=== PATIENT | female | born 1960 | race Caucasian/White ===

== ENCOUNTER → 2016-09-05 | Outpatient (CLI) | payer MEDICARE ==
[~2016-09-05] MED LIST: /GLIP10TAB PO; JANU50TA8 PO; LACT10SO PO; LASI40TA PO; PROP20TA5 PO; SPIR25TA2 PO
--- NOTE | 2016-09-05 10:56 | REPMRS ---
Patient History The patient states she had a clinical breast exam in 09/2016. Patient has history of other cancer and is nulliparous. Family history of colorectal cancer in father at age 50 or over, prostate cancer in father, breast cancer in mother under age 50, and colorectal cancer in paternal uncle under age 50. Digital Woman Screen Mammo: September 05, 2016 - Exam #: [id number] Bilateral CC and MLO view(s) were taken. Technologist: Parvin Edmonds, Technologist Prior study comparison: August 26, 2015, digital woman screen mammo performed at [facility]. August 26, 2014, digital woman screen mammo performed at [facility]. August 21, 2013, digital woman screen mammo performed at [facility]. FINDINGS: There are scattered fibroglandular densities. There has been no change in the appearance of the mammogram from the prior studies. There is a mild amount of scattered fibroglandular density which is fairly symmetric. There is no interval development of dominant mass, architectural distortion, or clustered microcalcification suggestive of malignancy. ASSESSMENT: BI-RADS/ACR category 1 mammogram. Negative. Recommendation Routine screening mammogram in 1 year (for women over age 40). This mammogram was interpreted with the aid of an FDA-approved computer-aided dectection system. Electronically Signed By: Jack Curtis MD 09/05/16 [id number]
== END ==
LOC: M WHC 09:22
PROVIDERS: ATTEND Nurse Practitioner Women's Health
DX: Z12.31 Encounter for screening mammogram for malignant neoplasm of breast (principal); Z12.11 Encounter for screening for malignant neoplasm of colon; Z92.89 Personal history of other medical treatment; Z80.0 Family history of malignant neoplasm of digestive organs; Z12.4 Encounter for screening for malignant neoplasm of cervix; B37.3 Candidiasis of vulva and vagina
CPT/HCPCS: 82270; G0101; G0202

== ENCOUNTER → 2016-09-05 | Outpatient (REF) | payer MEDICARE | LOC: M SFHCWAGY 09:45 | PROVIDERS: ATTEND Nurse Practitioner Women's Health | DX: Z12.4 Encounter for screening for malignant neoplasm of cervix (principal); B37.3 Candidiasis of vulva and vagina ==

== ENCOUNTER → 2016-09-25 | Outpatient (CLI) | payer MEDICARE ==
--- NOTE | 2016-09-25 10:52 | REP ---
GASTRIC EMPTYING STUDY: 09/25/2016 CLINICAL HISTORY: Postprandial upper abdominal pain. Dyspnea, reflux, weight gain, and bloating. TECHNIQUE: 1.05 mCi technetium 99m sulfur colloid in two scrambled eggs with 6 ounces of water orally. Anterior and posterior images at 2-minute intervals for 90 minutes were obtained. Region of interest drawn around the stomach with gastric emptying curve drawn by a semiautomated method. FINDINGS: The static images demonstrate no evidence of reflux on any of the images from the 90-minute period of observation. The gastric emptying is 90%. The t1/2 of gastric emptying 52 minutes. Normal t1/2 is 90 minutes or less. IMPRESSION: Normal gastric emptying study. There is no gastroparesis. No reflux observed. Signed by Andrade Caballero MD 09/25/2016 05:41 P
== END ==
LOC: M RAD 07:56
PROVIDERS: ATTEND Internal Medicine Gastroenterology
DX: R10.9 Unspecified abdominal pain (principal); R68.81 Early satiety
CPT/HCPCS: 78264; A9541

== ENCOUNTER → 2017-04-11 | Outpatient (CLI) | payer MEDICARE ==
--- NOTE | 2017-04-11 08:23 | REP ---
RIGHT UPPER QUADRANT SONOGRAPHY: HISTORY: Cirrhosis. COMPARISON STUDY: June 01, 2016. Comparison CT study December 03, 2016. SONOGRAPHIC FINDINGS: Exam quality is inhibited significantly due to patient body habitus and sonographic echogenicity pattern of the liver. This finding suggests fatty infiltration. The liver is very poorly seen. There is a 1 cm hyperechoic area in the left lobe anteriorly which could be a small hemangioma. The gallbladder is surgically absent. Common bile duct is normal post cholecystectomy measuring 0.7 cm. The pancreas is obscured by abdominal gas. The right kidney is less than completely seen. No evidence of hydronephrosis. IMPRESSION: Substantially inhibited exam quality. Question 1 cm hemangioma of the left lobe of the liver. Poor visualization. Post cholecystectomy. Signed by Javier Curtis MD 04/11/2017 08:26 A
== END ==
LOC: M RAD 06:57
PROVIDERS: ATTEND Internal Medicine Gastroenterology
DX: K74.0 Hepatic fibrosis (principal); I85.00 Esophageal varices without bleeding; K75.81 Nonalcoholic steatohepatitis (NASH); R19.7 Diarrhea, unspecified; E66.9 Obesity, unspecified; R16.1 Splenomegaly, not elsewhere classified

== ENCOUNTER 2017-07-09 11:57 | Emergency (ER) | payer MEDICARE ==
[~2017-07-09] VITALS: Ht 152.4 cm; Wt 106.8 kg
[2017-07-09 11:58] VITALS: BP 155/70
[2017-07-09] MEDS ORDERED: SUCR1SS PO (13:58)
[2017-07-09] MEDS ORDERED: PROT1TAB2 PO (13:58)
[2017-07-09] MEDS ORDERED: ZOFR4TAB3 PO (13:58)
[2017-07-09] MEDS ORDERED: ONDANSETRON 4 MG ORAL DISINTEGRATING TAB (S0181) PO ONE (14:00)
[2017-07-09] MEDS ORDERED: PANTOPRAZOLE 40MG INJ (PROTONIX) (C9113) IV ONE (14:00)
[2017-07-09] MEDS ORDERED: SUCRALFATE SUSP 1GM/10ML UD PO ONE (14:00)
== END 2017-07-09 14:05 | disposition home or self-care (01) ==
LOC: M ED 11:57
DX: K29.00 Acute gastritis without bleeding (principal); I73.9 Peripheral vascular disease, unspecified; E11.9 Type 2 diabetes mellitus without complications; K21.9 Gastro-esophageal reflux disease without esophagitis; K76.0 Fatty (change of) liver, not elsewhere classified; Z87.442 Personal history of urinary calculi; Z79.899 Other long term (current) drug therapy; Z79.84 Long term (current) use of oral hypoglycemic drugs; Z91.040 Latex allergy status

== ENCOUNTER → 2018-03-04 | Outpatient (REF) | payer MEDICARE ==
[2018-03-04 15:49] LABS: LUTEINIZING HORMONE 10.6 mIU/mL
[2018-03-04 15:50] LABS: FOLLICLE STIMULATING HORMONE 17.3 mIU/mL
== END ==
LOC: M SFHCWAGY 13:11
DX: N92.6 Irregular menstruation, unspecified (principal); Z01.419 Encounter for gynecological examination (general) (routine) without abnormal findings (principal)
CPT/HCPCS: 83001

== ENCOUNTER → 2018-03-04 | Outpatient (CLI) | payer MEDICARE, OTHER | LOC: M WHC 12:56 | DX: Z01.419 Encounter for gynecological examination (general) (routine) without abnormal findings (principal); Z12.31 Encounter for screening mammogram for malignant neoplasm of breast; Z80.3 Family history of malignant neoplasm of breast; Z80.0 Family history of malignant neoplasm of digestive organs; N92.6 Irregular menstruation, unspecified | CPT/HCPCS: 77067; 83001 ==

== ENCOUNTER → 2018-05-23 | Outpatient (REF) | payer MEDICARE ==
[2018-05-23 17:45] LABS: CHLAMYDIA DNA AMPLIFICATION NEGATIVE (NEGATIVE); GC DNA AMPLIFICATION NEGATIVE (NEGATIVE)
== END ==
LOC: M SFHCWAGY 15:45
DX: B37.3 Candidiasis of vulva and vagina (principal); N90.5 Atrophy of vulva; N89.8 Other specified noninflammatory disorders of vagina; Z11.3 Encounter for screening for infections with a predominantly sexual mode of transmission
CPT/HCPCS: 87186

== ENCOUNTER → 2018-10-23 | Outpatient (REF) | payer MEDICARE ==
[~2018-10-23] MED LIST changes: +PROT1TAB2 PO; +SUCR1SS PO; +ZOFR4TAB14 PO
[2018-10-23 15:42] LABS: CHLAMYDIA DNA AMPLIFICATION NEGATIVE (NEGATIVE); GC DNA AMPLIFICATION NEGATIVE (NEGATIVE)
== END ==
LOC: M LAB REF 13:56
PROVIDERS: ATTEND Nurse Practitioner Family
DX: Z11.3 Encounter for screening for infections with a predominantly sexual mode of transmission (principal); N39.46 Mixed incontinence
CPT/HCPCS: 81002; 87088; 87186; 87210; 87491; 87591; G0463

== ENCOUNTER → 2018-11-13 | Outpatient (CLI) | payer MEDICARE ==
--- NOTE | 2018-11-13 11:11 | REP ---
Pelvic ultrasound including transabdominal, endovaginal and Doppler ultrasound assessment for postmenopausal bleeding: The bladder is adequately distended. The uterus is anteverted and normal size measuring 7.8 x 3.0 x 4.2 cm. Nabothian cysts are incidentally identified in the cervix. The endometrium measures 3.1 - 6.2 mm and is slightly thickened for a post proposal female. The right ovary measures 2.6 x 1.6 x 2.3 cm. Left ovary measures 2.5 x 1.3 x 1.6 cm. There are no dominant ovarian masses or cysts. There is no free fluid in the pelvis. Impression: Slightly thickened endometrium. Otherwise, negative pelvic ultrasound. Electronically Signed by Nicholas Escalona MD 11/13/2018 11:03 A
== END ==
LOC: M WHC 09:11
PROVIDERS: ATTEND Nurse Practitioner Family
DX: N85.00 Endometrial hyperplasia, unspecified (principal)

== ENCOUNTER → 2019-02-16 | Outpatient (REF) | payer MEDICARE ==
[~2019-02-16] MED LIST changes: +ALDA50TA2 PO; +B-122500 PO; +CHOL100029 PO; +CYCL5TAB PO; +FERR1TAB8 PO; +FURO40TA2 PO; +GLIP5TAB20 PO; +IBUP-1022 PO; +JANU50TA25 PO; +LACT10SO29 PO; +MAGN400C PO; +MEDR10TA PO; +OMEP-221 PO; +PANT40TA3 PO; +PROP10TA56 PO; +SM HTAB3 PO; +SPIR100T3 PO; +TRUL10IN SC; +VITA100066 PO; +VITACAP8 PO
== END ==
LOC: M LAB REF 19:19
PROVIDERS: ATTEND Specialist
DX: N95.0 Postmenopausal bleeding (principal)

== ENCOUNTER 2019-03-26 05:56 | Day surgery (SDC) | payer MEDICARE ==
[~2019-03-26] VITALS: Ht 152.4 cm; Wt 107.5 kg
[~2019-03-26 05:56] MED LIST changes: -ALDA50TA2 PO; -B-122500 PO; -CYCL5TAB PO; -IBUP-1022 PO; -MEDR10TA PO; -SM HTAB3 PO; -VITA100066 PO
[2019-03-26] MEDS ORDERED: LR 1,000 ML IV ONE (06:00)
[2019-03-26 06:34] LABS: HEMATOCRIT 37.3 % (36.0-47.0); HEMOGLOBIN 12.6 g/dl (12.0-15.5); MEAN CORPUSCULAR HGB CONC 33.8 g/dl (32.0-36.5); MEAN CORPUSCULAR VOLUME 85.9 fl (80.0-96.0); PLATELET COUNT, AUTOMATED 54 10^3/uL (150-450); RED BLOOD COUNT 4.34 10^6/uL (4.00-5.40); WHITE BLOOD COUNT 4.2 10^3/uL (4.0-10.0)
[2019-03-26] MEDS ORDERED: HumaLOG INSULIN (NovoLOG) PER UNIT SC ONE (07:30)
[2019-03-26] MEDS ORDERED: HumaLOG INSULIN (NovoLOG) PER UNIT As Ordered ONE (07:30)
[2019-03-26] MEDS ORDERED: LIDOCAINE 2% INJ 100 MG/5 ML SDV (FOR ANES.) As Ordered ONE (11:00)
[2019-03-26] MEDS ORDERED: propofoL 200 MG/20 ML VIAL As Ordered ONE (11:00)
[2019-03-26] MEDS ORDERED: dexameTHASONE 4 MG/ML 1ML VIAL (J1100) As Ordered ONE (11:00)
[2019-03-26] MEDS ORDERED: ONDANSETRON 4MG/2ML VIAL (J2405) As Ordered ONE (11:00)
[2019-03-26] MEDS ORDERED: fentaNYL 100 MCG/2 ML INJECTION (J3010) As Ordered ONE (11:39)
[2019-03-26] MEDS ORDERED: MIDAZOLAM INJ 2 MG/2 ML VIAL (J2250) As Ordered ONE (11:39)
[2019-03-26] MEDS ORDERED: KETOROLAC 60 MG/2 ML VIAL (J1885) As Ordered ONE (12:39)
[2019-03-26] MEDS ORDERED: ONDANSETRON 4MG/2ML VIAL (J2405) IV PRN (13:15)
[2019-03-26] MEDS ORDERED: ACETAMINOPHEN 500 MG TAB PO ONE (13:15)
[2019-03-26] MEDS ORDERED: fentaNYL 100 MCG/2 ML INJECTION (J3010) IV PRN (13:15)
[2019-03-26] MEDS ORDERED: PERCOCET 5MG/325MG TAB PO PRN (13:15)
[2019-03-26] MEDS ORDERED: LR 1,000 ML IV SCH ×2 (13:15)
[2019-03-26 14:45] VITALS: BP 168/79
--- NOTE | 2019-03-28 15:28 | RO ---
DATE OF PROCEDURE: 03/26/2019 PREPROCEDURE DIAGNOSIS: Postmenopausal bleeding. POSTPROCEDURE DIAGNOSIS: Postmenopausal bleeding. PROCEDURE: Hysteroscopy, dilation and curettage, polypectomy. SURGEON: Denny Sampson MD VISUAL ARTS TEACHER: ANESTHESIA: General endotracheal. ESTIMATED BLOOD LOSS: 10 mL. URINE OUTPUT: 150 mL. FINDINGS: Moderate size endometrial polyp - the anterior lower uterine segment, otherwise normal endometrial cavity with normal tubal ostia. Uterus sounded to 8 cm and anteverted. DESCRIPTION OF PROCEDURE: The patient was taken to the operating room where general endotracheal anesthesia was induced. She was prepped and draped in a sterile fashion in the dorsal lithotomy position. The bladder was emptied with a catheter. A speculum was placed in the vagina. The anterior lip of the cervix was grasped with a tenaculum. The cervix was dilated with tapered dilators. Diagnostic hysteroscope using normal saline as a distention medium was placed through the internal os. Visualization of the endometrial cavity revealed the findings noted above. Hysteroscopic grasping instruments were placed through the operative port of the hysteroscope, and the polyp was grasped under direct visualization, removing it in its entirety. The hysteroscope was removed. Sharp curettage performed and a dilation and curettage specimen was sent for pathology. All instruments were removed. Sponge, instrument and needle counts were correct.
[2019-04-28] MEDS ORDERED: MEDR10TA PO (16:02)
[2019-05-14] MEDS ORDERED: B-122500 PO (16:54)
[2019-06-15] MEDS ORDERED: JANU50TA8 PO (11:03)
== END 2019-03-26 14:55 | disposition home or self-care (01) ==
LOC: M SDC 05:56
PROVIDERS: ATTEND Specialist
DX: N85.01 Benign endometrial hyperplasia (principal); I10 Essential (primary) hypertension; E10.9 Type 1 diabetes mellitus without complications; Z79.4 Long term (current) use of insulin; K58.8 Other irritable bowel syndrome; Z79.899 Other long term (current) drug therapy; K21.9 Gastro-esophageal reflux disease without esophagitis; Z91.040 Latex allergy status; Z79.84 Long term (current) use of oral hypoglycemic drugs; F41.9 Anxiety disorder, unspecified
CPT/HCPCS: 36415; 58558; 85027; 85049; 85055; 88305; J1100; J1885; J2250; J2405; J3010

== ENCOUNTER → 2019-04-14 | Outpatient (CLI) | payer MEDICARE ==
--- NOTE | 2019-04-14 13:41 | REPMRS ---
Patient History The patient states she had a clinical breast exam in 04/2019. Patient is postmenopausal, has history of other cancer, and is nulliparous. Family history of breast cancer under age 50 in mother, prostate cancer and colorectal cancer at age 50 or over in father, colorectal cancer at age 47 in paternal uncle. Taking estrogen for 1 year. Taking progesterone. 3D TOMOSYNTHESIS WAS PERFORMED. [facility] lifetime risk for breast cancer is 19.7%. Digital Woman Screen Mammo: April 14, 2019 - Exam #: [id number] Bilateral CC and MLO view(s) were taken. Technologist: Parvin Edmonds, Technologist Prior study comparison: March 04, 2018, bilateral digital woman screen mammo performed at [facility]. September 05, 2016, digital woman screen mammo performed at [facility]. FINDINGS: There are scattered fibroglandular densities. There has been no change in the appearance of the mammogram from the prior studies. There is a mild amount of residual fibroglandular tissue which is fairly symmetric. There is no interval development of dominant mass, architectural distortion, or clustered microcalcification suggestive of malignancy. Assessment: BI-RADS/ACR category 1 mammogram. Negative Mammogram. Recommendation Routine screening mammogram in 1 year (for women over age 40). This mammogram was interpreted with the aid of an FDA-approved computer-aided dectection system. Electronically Signed By: Nicholas Snow MD 04/14/19 [id number]
== END ==
LOC: M WHC 10:31
PROVIDERS: ATTEND Nurse Practitioner Women's Health
DX: Z01.419 Encounter for gynecological examination (general) (routine) without abnormal findings (principal); Z12.31 Encounter for screening mammogram for malignant neoplasm of breast; Z78.0 Asymptomatic menopausal state; Z85.89 Personal history of malignant neoplasm of other organs and systems; Z80.3 Family history of malignant neoplasm of breast; Z80.42 Family history of malignant neoplasm of prostate; Z80.0 Family history of malignant neoplasm of digestive organs; Z92.23 Personal history of estrogen therapy; Z92.29 Personal history of other drug therapy
CPT/HCPCS: 77063; 77067; G0101

== ENCOUNTER 2019-04-28 15:55 | Emergency (ER) | payer MEDICARE ==
[~2019-04-28] VITALS: Ht 152.4 cm; Wt 109.1 kg
[2019-04-28 15:55] VITALS: BP 150/67
[2019-04-28] MEDS ORDERED: MEDR10TA (16:02)
[2019-04-28] MEDS ORDERED: IBUP-1022 PO (17:06)
[2019-04-28 19:15] LABS: BASO % 0.4 % (0.0-1.0); EOS # 0.2 10^3/uL (0.0-0.5); EOS % 3.2 % (0.0-3.0); HEMATOCRIT 41.4 % (36.0-47.0); HEMOGLOBIN 13.5 g/dl (12.0-15.5); LYMPH # 1.1 10^3/uL (1.5-5.0); LYMPH % 22.8 % (24.0-44.0); MEAN CORPUSCULAR HEMOGLOBIN 28.4 pg (27.0-33.0); MEAN CORPUSCULAR HGB CONC 32.6 g/dl (32.0-36.5); MEAN CORPUSCULAR VOLUME 87.2 fl (80.0-96.0); MONO # 0.3 10^3/uL (0.0-0.8); NEUTROPHILS # 3.1 10^3/uL (1.5-8.5); NEUTROPHILS % 66.2 % (36.0-66.0); RED BLOOD COUNT 4.75 10^6/uL (4.00-5.40); WHITE BLOOD COUNT 4.7 10^3/uL (4.0-10.0)
[2019-04-28 19:26] LABS: PLATELET COUNT, AUTOMATED 55 10^3/uL (150-450)
[2019-04-28 19:28] LABS: ALT/SGPT 45 U/L (12-78); BILIRUBIN,DIRECT 0.3 MG/DL (0.0-0.2); BILIRUBIN,TOTAL 0.8 MG/DL (0.2-1.0); BLOOD UREA NITROGEN 14 MG/DL (7-18); CALCIUM LEVEL 9.6 MG/DL (8.5-10.1); CARBON DIOXIDE LEVEL 25 MEQ/L (21-32); CHLORIDE LEVEL 110 MEQ/L (98-107); GLOMERULAR FILTRATION RATE > 60.0 (>51); GLUCOSE, FASTING 168 MG/DL (70-100); LIPASE 135 U/L (73-393); POTASSIUM SERUM 4.5 MEQ/L (3.5-5.1); SODIUM LEVEL 143 MEQ/L (136-145); TOTAL PROTEIN 7.1 GM/DL (6.4-8.2)
--- NOTE | 2019-04-28 20:04 | REPVR ---
PROCEDURE INFORMATION: Exam: CT Abdomen and Pelvis Without Contrast Exam date and time: 04/28/2019 6:54 PM Clinical history: 59 years old, female; Abdominal pain; Flank; Right; Additional info: R/O kidney stone TECHNIQUE: Imaging protocol: Computed tomography of the abdomen and pelvis without contrast. Radiation optimization: All CT scans at this facility use at least one of these dose optimization techniques: automated exposure control; mA and/or kV adjustment per patient size (includes targeted exams where dose is matched to clinical indication); or iterative reconstruction. COMPARISON: CT ABD PELVIS W/O FOL BY WIT 11/24/2014 8:47 AM FINDINGS: Lungs: Clear lung bases. Liver: Some lobulation of the margins of the liver. Gallbladder and bile ducts: Surgical clips at the gallbladder fossa and the patient is post cholecystectomy. Pancreas: Normal sized pancreas. Spleen: Mild splenomegaly. Adrenals: Normal adrenal glands. Kidneys and ureters: Small cyst of the right kidney. There is no evidence of hydronephrosis. Stomach and bowel: There is some dilatation of the proximal jejunum with air-fluid levels which could represent ileus. Appendix: There is no evidence of appendicitis. Intraperitoneal space: There is no evidence of pneumoperitoneum. There is a small to moderate amount of ascites throughout the abdomen and noted along the margins of the liver and spleen. There is some edema through the mesentery. Vasculature: The aorta is normal in size. Lymph nodes: Unremarkable. No enlarged lymph nodes. Bladder: Urinary bladder is empty. Reproductive: Normal size uterus. Normal sized ovaries. Bones/joints: There are large posterior osteophytes L3-L4, L4-L5 and L5-S1 producing severe central spinal canal stenosis at each level. These are bridging osteophytes are also anterior bridging osteophytes. Soft tissues: There is a 4 cm abdominal wall defect below the level of the umbilicus however the hernia is 9 CM. There is protrusion of lobules of mesentery probably omentum. There is extensive edema and some loculations of fluid. Severe edema throughout the anterior abdominal wall with skin thickening and cellulitis identified. Scattered omental fat within the anterior abdominal wall hernia may be ischemic but is contiguous with the sigmoid colon. IMPRESSION: 1. There is a small to moderate amount of ascites in the abdomen including along the liver and spleen. 2. 9 CM anterior abdominal wall hernia with protrusion of lobules of mesenteric fat probably omentum. This could be ischemic since there are loculations of fluid and severe cellulitis and edema of the subcutaneous layer. Infected fluid collections possible. Electronically signed by: Aaron Gayle On 04/28/2019 20:04:16 PM
--- NOTE | 2019-04-28 20:27 | REPVR ---
PROCEDURE INFORMATION: Exam: CT Lumbar Spine Without Contrast Exam date and time: 04/28/2019 6:54 PM Clinical history: 59 years old, female; Other: Right flank pain ? kidney stone; Additional info: R/O kidney stone TECHNIQUE: Imaging protocol: Computed tomography images of the lumbar spine without contrast. Radiation optimization: All CT scans at this facility use at least one of these dose optimization techniques: automated exposure control; mA and/or kV adjustment per patient size (includes targeted exams where dose is matched to clinical indication); or iterative reconstruction. COMPARISON: No relevant prior studies available. FINDINGS: L5-S1: There is large posterior bridging osteophyte causing moderate impression on the anterior left side of the thecal sac and impression on the left S1 nerve root origin. There is also severe bilateral L5 neural foramina narrowing. L4-L5: There is a moderate-sized posterior bridging osteophyte and along with facet hypertrophy causing moderate central spinal canal stenosis. There is severe bilateral L4 neural foramina narrowing. L3-L4: There is a massive/ large bridging posterior disc osteophyte complex causing very severe impression on the thecal sac and with facet hypertrophy causing very severe central spinal canal stenosis. There is posterior osteophyte formation T11 T12 and L1 causing mild impression on the thecal sac. A posterior osteophyte at T8 causing focal impression on the thecal sac. There is no definite evidence of metastasis. IMPRESSION: 1. Very large posterior bridging osteophyte L3-L4 causing severe impression on the thecal sac and very severe central canal stenosis. 2. Moderate posterior osteophyte formation L4-L5 and L5-S1 with severe bilateral neural foramina narrowing. Electronically signed by: Aaron Gayle On 04/28/2019 20:26:49 PM
--- NOTE | 2019-04-28 21:29 | HPEPDOC ---
[facility] Medical History & Physical Date of Admission Apr 28, 2019 Date of Service: Apr 28, 2019 Primary Care Physician: SHARON BONDS MD [facility] Attending Physician: ADITYA CAPELLAN MD History and Physical When I went to see the patient she had abscunded. Vital Signs Vital Signs Date Time Temp Pulse Resp B/P (MAP) Pulse Ox O2 Delivery O2 Flow Rate FiO2 04/28/19 17:09 04/28/19 15:55 97.6 79 20 99 Room Air Laboratory Data Labs 24H Laboratory Tests 2 04/28/19 16:15: Urine Color YELLOW, Urine Appearance CLEAR, Urine pH 5.0, Urine Specific [place] 1.028, Urine Protein NEGATIVE, Urine Glucose (UA) 2+H, Urine Ketones NEGATIVE, Urine Blood NEGATIVE, Urine Nitrite NEGATIVE, Urine Bilirubin NEGATIVE, Urine Urobilinogen 2.0H, Urine Leukocyte Esterase NEGATIVE, Urine WBC (Auto) 2, Urine RBC (Auto) 0, Urine Hyaline Casts (Auto) 0, Urine Bacteria (Auto) NEGATIVE, Urine Squamous Epithelial Cells 1, Urine Mucus (Auto) SMALL, Urine Sperm (Auto) 04/28/19 18:50: Immature Granulocyte % (Auto) 0.4, White Blood Count 4.7, Red Blood Count 4.75, Hemoglobin 13.5, Hematocrit 41.4, Mean Corpuscular Volume 87.2, Mean Corpuscular Hemoglobin 28.4, Mean Corpuscular Hemoglobin Concent 32.6, Red Cell Distribution Width 15.0H, Platelet Count 55L, Neutrophils (%) (Auto) 66.2H, Lymphocytes (%) (Auto) 22.8L, Monocytes (%) (Auto) 7.0H, Eosinophils (%) (Auto) 3.2H, Basophils (%) (Auto) 0.4, Neutrophils # (Auto) 3.1, Lymphocytes # (Auto) 1.1L, Monocytes # (Auto) 0.3, Eosinophils # (Auto) 0.2, Basophils # (Auto) 0.0, Nucleated Red Blood Cells % (auto) 0.0, Immature Platelet Fraction 4.1, Anion Gap 8, Glomerular Filtration Rate > 60.0, Calcium Level 9.6, Aspartate Amino Transf (AST/SGOT) 44H, Alanine Aminotransferase (ALT/SGPT) 45, Alkaline Phosphatase 80, Total Bilirubin 0.8, Direct Bilirubin 0.3H, Total Protein 7.1, Albumin 3.0L, Albumin/Globulin Ratio 0.73L, Lipase 135 CBC/BMP Laboratory Tests 04/28/19 18:50 Red Blood Count 4.75, Mean Corpuscular Volume 87.2, Mean Corpuscular Hemoglobin 28.4, Mean Corpuscular Hemoglobin Concent 32.6, Red Cell Distribution Width 15.0 H, Neutrophils (%) (Auto) 66.2 H, Lymphocytes (%) (Auto) 22.8 L, Monocytes (%) (Auto) 7.0 H, Eosinophils (%) (Auto) 3.2 H, Basophils (%) (Auto) 0.4, Neutrophils # (Auto) 3.1, Lymphocytes # (Auto) 1.1 L, Monocytes # (Auto) 0.3, Eosinophils # (Auto) 0.2, Basophils # (Auto) 0.0 Home Medications Scheduled Dulaglutide (Trulicity) 0.75 Mg/0.5 Ml Pen.injctr, 0.75 MG SC QWEEK saturday Ferrous Sulfate (Ferrous Sulfate) 325 Mg Tablet, 325 MG PO DAILY Furosemide (Furosemide) 40 Mg Tablet, 40 MG PO TID Glipizide (Glipizide ER) 5 Mg Tab.er.24, 10 MG PO BID Lactulose (Lactulose) 10 Gm/15 Ml Solution, Unknown Dose PO DAILY states ran out last week Magnesium Oxide (Magnesium) 400 Mg Capsule, 400 MG PO DAILY Omeprazole (Omeprazole) 40 Mg Capsule.dr, 40 MG PO DAILY Pantoprazole Sodium (Pantoprazole Sodium) 40 Mg Tablet.dr, 40 MG PO DAILY Propranolol HCl (Propranolol HCl) 10 Mg Tablet, 10 MG PO DAILY Sitagliptin Phos/Metformin HCl (Janumet Xr 50-1,000 mg Tablet) 1 Each Tbmp.24hr, 1 TAB PO BID Spironolactone (Spironolactone) 100 Mg Tablet, 100 MG PO DAILY Vitamin B Complex (Vitamin B Complex) 1 Each Capsule, 1 CAP PO DAILY Vitamin D (Vitamin D3) 1,000 Unit Tablet, 1,000 UNITS PO DAILY Scheduled PRN Ibuprofen (Ibuprofen) 600 Mg Tablet, 2 TAB PO for PAIN with food Miscellaneous Medications Medroxyprogesterone Acetate (Medroxyprogesterone Acetate) 10 Mg Tablet Allergies Coded Allergies: latex (Verified Allergy, Mild, itching, 03/26/19) A-FIB/CHADSVASC A-FIB History Current/History of A-Fib/PAF?: No Current PO Anticoag Therapy: No ADITYA CAPELLAN MD Apr 28, 2019 21:29
--- NOTE | 2019-04-29 09:58 | ED PDOC ---
Post-Departure Follow-Up pt left ama - ct ls spine and abd/p faxed to dr iniguez for fu Otilio Hodges MD Apr 29, 2019 09:58
[2019-04-29] MEDS ORDERED: CYCL5TAB PO (16:52)
== END 2019-04-28 22:48 | disposition left against medical advice (07) ==
LOC: M ED 15:55
DX: M54.5 Low back pain (principal); E11.51 Type 2 diabetes mellitus with diabetic peripheral angiopathy without gangrene; I10 Essential (primary) hypertension; K21.9 Gastro-esophageal reflux disease without esophagitis; I73.9 Peripheral vascular disease, unspecified; M19.90 Unspecified osteoarthritis, unspecified site; F41.9 Anxiety disorder, unspecified; Z79.899 Other long term (current) drug therapy; Z79.84 Long term (current) use of oral hypoglycemic drugs; Z91.040 Latex allergy status

== ENCOUNTER 2019-04-29 11:52 | Emergency (ER) | payer MEDICARE ==
[~2019-04-29] VITALS: Ht 152.4 cm; Wt 109.9 kg
[~2019-04-29 11:52] MED LIST changes: +IBUP-1022 PO; +MEDR10TA PO
[2019-04-29 14:52] LABS: BASO % 0.4 % (0.0-1.0); EOS # 0.1 10^3/uL (0.0-0.5); EOS % 2.3 % (0.0-3.0); HEMATOCRIT 41.6 % (36.0-47.0); HEMOGLOBIN 13.7 g/dl (12.0-15.5); LYMPH % 20.2 % (24.0-44.0); MEAN CORPUSCULAR HEMOGLOBIN 28.9 pg (27.0-33.0); MEAN CORPUSCULAR HGB CONC 32.9 g/dl (32.0-36.5); MEAN CORPUSCULAR VOLUME 87.8 fl (80.0-96.0); MONO # 0.4 10^3/uL (0.0-0.8); NEUTROPHILS # 3.6 10^3/uL (1.5-8.5); NEUTROPHILS % 68.9 % (36.0-66.0); RED BLOOD COUNT 4.74 10^6/uL (4.00-5.40); WHITE BLOOD COUNT 5.2 10^3/uL (4.0-10.0)
[2019-04-29 14:55] LABS: PLATELET COUNT, AUTOMATED 58 10^3/uL (150-450)
[2019-04-29 14:57] LABS: ALBUMIN 3.1 GM/DL (3.2-5.2); BILIRUBIN,DIRECT 0.2 MG/DL (0.0-0.2); BILIRUBIN,TOTAL 0.7 MG/DL (0.2-1.0); TOTAL PROTEIN 7.2 GM/DL (6.4-8.2)
[2019-04-29] MEDS ORDERED: ISOVUE-370 76% 100ML VIAL (Q9967) As Ordered ONE (15:12)
--- NOTE | 2019-04-29 16:29 | REP ---
CT of the abdomen and pelvis with IV contrast with attention to the patient's anterior abdominal wall hernia. Comparisons are 04/28/2019 and 11/24/2014. Graph there is an midline anterior abdominal wall hernia just above the umbilicus that have been present since at least 11/24/2014. This is a complex hernia containing at least two separate herniations of omentum and pericolonic fat , one above the other, however there is no bowel within the hernia sac. This is unchanged from 11/24/2014. The peritoneal defect measures 3.2 cm. The hernia sac measures 5.3 cm transversely by 8.7 cm craniocaudad. On 2018. There was significant induration of the subcutaneous fat accompanied by skin thickening surrounding the anterior and inferior margins of the hernia sac as an interval change. There is no focal fluid collection to suggest abscess. This may represent cellulitis. Additionally, there is increased density in the fat of the superior most or herniation along its anterior and inferior margins, however, this was also present in 2014 and may represent chronic ischemic change within this herniated fat. The volume of herniated fat in the this superior most hernia appears increased on the study today compared to 11/24/2014. The the patient has other findings consisting of a small volume of ascites surrounding the liver and spleen, in the colic gutters bilaterally, small liver with nodular surface compatible with cirrhosis, splenic varices and splenomegaly are unchanged. The pancreas, adrenals and kidneys are unremarkable except for a small right renal cortical cyst. Abdominal aorta is unremarkable. There is no bowel distension or obstruction. Pelvis: The uterus, adnexa and bladder are unremarkable. There is no adenopathy or mass. Minimal volume of ascites in the pelvis. Impression: The the patient has a known anterior abdominal wall hernia just above the umbilicus as described in detail above. There is skin thickening accompanied by induration of the abdominal wall subcutaneous fat along the anterior inferior margins of the hernia sac compatible with cellulitis. There is no focal fluid collection to suggest abscess. The hernia is complex as discussed in detail above containing at least two separate herniations of omental fat but no bowel . The superior most hernia contains areas of the increased density within the herniated fat, however, this is unchanged from 11/24/2014 and may represent chronic fat ischemic change. The fat in the inferior most herniation is unremarkable except for the induration in the adjacent abdominal wall subcutaneous fat. There are other intra-abdominal findings, not significantly changed from 04/28/2019. Electronically Signed by Nicholas Escalona MD 04/29/2019 04:20 P
[2019-04-29] MEDS ORDERED: CYCL5TAB PO (16:52)
[2019-04-29 17:02] VITALS: BP 150/67
[2019-05-14] MEDS ORDERED: B-122500 PO (16:54)
[2019-06-15] MEDS ORDERED: JANU50TA8 PO (11:03)
== END 2019-04-29 17:03 | disposition home or self-care (01) ==
LOC: M ED 11:52
DX: M54.31 Sciatica, right side (principal); K46.9 Unspecified abdominal hernia without obstruction or gangrene; I10 Essential (primary) hypertension; E11.9 Type 2 diabetes mellitus without complications; F41.9 Anxiety disorder, unspecified; K21.9 Gastro-esophageal reflux disease without esophagitis; Z87.442 Personal history of urinary calculi; Z79.899 Other long term (current) drug therapy; Z79.84 Long term (current) use of oral hypoglycemic drugs; Z91.040 Latex allergy status
CPT/HCPCS: 36415; 74174; 80047; 80076; 83605; 85025; 99284; Q9967

== ENCOUNTER → 2019-05-19 | Outpatient (CLI) | payer MEDICARE ==
[~2019-05-19] MED LIST changes: +B-122500 PO; +CYCL5TAB PO; +MEDR10TA; -MEDR10TA PO
[2019-05-19 12:33] VITALS: BP 185/76
--- NOTE | 2019-05-19 14:30 | REP ---
REASON FOR EXAM: Cirrhosis. Four quadrant ultrasound to assess for ascites. Multiple ultrasonographic images of the abdomen were obtained in a limited fashion. There is a minimal amount of free fluid in the abdomen. Electronically Signed by Juan J Lenz DO 05/19/2019 03:48 P
== END ==
LOC: M IRPRO 12:04
PROVIDERS: ATTEND Internal Medicine Gastroenterology
DX: R18.8 Other ascites (principal); K74.0 Hepatic fibrosis

== ENCOUNTER → 2019-06-16 | Outpatient (CLI) | payer MEDICARE ==
[2019-06-16 11:20] VITALS: BP 148/74
--- NOTE | 2019-06-16 17:59 | REP ---
Ultrasound-guided paracentesis The procedure was performed under the direct supervision of Dr. Curtis. The risks and benefits of the procedure were explained to the patient and informed consent was obtained. The largest pocket of fluid was localized in the right lower quadrant using ultrasound guidance. The skin was prepped and draped in a sterile fashion. 1% lidocaine was used as a local anesthetic. An 8-[place] multi side-hole catheter was inserted using trocar technique. 4500 ml of estelita colored fluid was withdrawn and discarded. The patient tolerated the procedure well and there were no immediate complications. After the appropriate amount of monitored convalescence the patient was discharged from the department. Electronically Signed by PHOEBE Keita 06/16/2019 04:26 P Electronically Signed by Javier Curtis MD 06/16/2019 05:50 P
== END ==
LOC: M IRPRO 09:44
PROVIDERS: ATTEND Internal Medicine Gastroenterology
DX: R18.8 Other ascites (principal); K74.0 Hepatic fibrosis; R14.0 Abdominal distension (gaseous); K75.81 Nonalcoholic steatohepatitis (NASH)

== ENCOUNTER → 2019-06-18 | Outpatient (REF) | payer MEDICARE | LOC: M LAB REF 13:42 | PROVIDERS: ATTEND Specialist | DX: N95.0 Postmenopausal bleeding (principal) ==

== ENCOUNTER 2019-07-16 17:15 | Observation (INO) | payer MEDICARE ==
[~2019-07-16] VITALS: Ht 154.9 cm; Wt 117.4 kg
[~2019-07-16 17:15] MED LIST changes: -MEDR10TA; +MEDR10TA PO
[2019-07-16 18:23] LABS: BASO % 0.5 % (0.0-1.0); EOS # 0.1 10^3/uL (0.0-0.5); EOS % 2.3 % (0.0-3.0); HEMATOCRIT 37.8 % (36.0-47.0); HEMOGLOBIN 12.1 g/dl (12.0-15.5); LYMPH % 17.1 % (24.0-44.0); MEAN CORPUSCULAR HEMOGLOBIN 27.4 pg (27.0-33.0); MEAN CORPUSCULAR VOLUME 85.5 fl (80.0-96.0); MONO # 0.5 10^3/uL (0.0-0.8); MONO % 9.4 % (0.0-5.0); NEUTROPHILS % 70.5 % (36.0-66.0); PLATELET COUNT, AUTOMATED 103 10^3/uL (150-450); RED BLOOD COUNT 4.42 10^6/uL (4.00-5.40); WHITE BLOOD COUNT 5.6 10^3/uL (4.0-10.0)
[2019-07-16 18:41] LABS: INR 1.3; PROTHROMBIN TIME 15.9 SECONDS (11.8-14.0)
[2019-07-16 18:42] LABS: ALBUMIN 2.7 GM/DL (3.2-5.2); ALT/SGPT 31 U/L (12-78); BILIRUBIN,DIRECT 0.3 MG/DL (0.0-0.2); BILIRUBIN,TOTAL 0.9 MG/DL (0.2-1.0); BLOOD UREA NITROGEN 11 MG/DL (7-18); CALCIUM LEVEL 9.2 MG/DL (8.5-10.1); CARBON DIOXIDE LEVEL 24 MEQ/L (21-32); CHLORIDE LEVEL 107 MEQ/L (98-107); CK-MB VALUE MASS < 1.0 NG/ML (<3.6); CPK CREATINE PHOSPHOKINASE 79 U/L (26-192); GLOMERULAR FILTRATION RATE > 60.0 (>51); GLUCOSE, FASTING 93 MG/DL (70-100); LIPASE 141 U/L (73-393); MB/CK RELATIVE INDEX 1.27 (< OR =4); POTASSIUM SERUM 3.6 MEQ/L (3.5-5.1); SODIUM LEVEL 143 MEQ/L (136-145); TOTAL PROTEIN 7.1 GM/DL (6.4-8.2); TROPONIN I < 0.02 NG/ML (< 0.10)
--- NOTE | 2019-07-16 19:55 | HPEPDOC ---
[facility] Medical History & Physical Date of Admission Jul 16, 2019 Date of Service: Jul 16, 2019 Primary Care Physician: SHARON BONDS MD [facility] Attending Physician: ADITYA CAPELLAN MD History and Physical TIME OF SERVICE: 10 PM CHIEF COMPLAINT:Shortness of breath HISTORY OF PRESENT ILLNESS: This is a 59-year-old female who presents with complaints of shortness of breath is made worse by moving and better when she sits still for a few weeks. Associate symptoms include a massive amount of weight gain, increased abdominal girth and bilateral lower extremity edema. She has being seen a eyelet row marker, Dr. Sepulveda in [place] who started her on a diuretic. Her last paracentesis was on June 16; according to the patient. Dr. Sepulveda wanted to see how she responded to a low-salt diet and the diuretics prior to scheduling another paracentesis. She also reports having fevers, chills, itchy skin and thinks that she may been exposed to people that are sick. She denies feeling congested, denies having a cough denies having nausea , vomiting or diarrhea. REVIEW OF SYSTEMS: 12 point review of systems negative except as listed in HPI PAST MEDICAL/ SURGICAL HISTORY: GILBERT Complex endometrial hyperplasia with atypia on medroxyprogesterone acetate NIDDM History of bilateral lower extremity cellulitis Status post left knee arthroplasty. Status post osteotomy. Status post cholecystectomy. Status post cholecystectomy SOCIAL HISTORY: She does not smoke FAMILY HISTORY: CAD Chronic hypertension CVA Colon cancer. Breast cancer Diabetes ALLERGIES: Please see below. HOME MEDICATIONS: Please see below. PHYSICAL EXAMINATION: VITAL SIGNS: Please see below. GEN: well nourished / well developed/ NAD / sitting up on ER bed INTEGUMENT: not flushed/ not jaundice / the skin on her mid to lower abdomen has rubor, dalor, calor, and peau d'orange appearance HEENT: normocephalic / atraumatic / lips acyanotic /mucus membranes moist and pink / sclera anicteric CVS: RRR/NMRG/ tense bilateral lower extremity edema LUNGS: able to speak full sentences without stopping to take a breath / there is decreased air entry bilaterally/ breath sounds are diminished ABDOMEN: has massive tense ascites / the abdomen is dull on percussion on percussion MSK/EXTREMITIES: range of motion intact in all 4 extremities NEURO: CN 2-12 are grossly intact / speech is not dysarthric PSYCH: alert and oriented to person place and time/ able to understand and follow all commands LABORATORY DATA: See below. MICROBIOLOGY: Please see below. ASSESSMENT: Ms. Fagan is a 59-year-old female the past medical history of Gilbert, comp, looks endometrial hyperplasia, and NIDDM, and morbid obesity who presented with shortness of breath, likely due to massive ascites and will be admitted for therapeutic paracentesis. PLAN: 1. Ascites secondary to GILBERT Plan: Admit to medical floor/monitor I's and O's and daily weights/post paracentesis resume a low-salt diet with fluid restriction to <2L / start spironolactone 100 mg twice a day in addition to her home dose of Lasix 40 mg twice a day / she can follow-up with her gastrologist an outpatient basis / the patient should be instructed to discontinue ibuprofen and this can exacerbate her ascites / continue propranolol for varices? 2. Hypertensive Crisis In the ER, her blood pressure was 211/95 , but it has has improved Currently unclear what caused her blood pressure to be elevated. Her troponin, potassium, GFR, BUN, calcium and creatinine are within normal limits. The EKG shows sinus tachycardia with nonspecific T-wave abnormalities. Plan: Lasix and spironolactone/monitor vitals 3. Mild abdominal wall cellulitis Plan: We'll give IV clindamycin tonight and transition to PO clinda tomorrow 4. Bilateral lower extremity edema Likely due to low albumin in the setting of liver failure Plan: PT consults for lymphedema wraps / elevate legs/diuretics 5. Thrombocytopenia likely due to reduced thrombopoietin production due to GILBERT Plan: Follow-up CBC. / avoid heparin products 6. Urticaria. Her bilirubin is within normal limits Could be side effect of glipizide Plan: Benadryl cream and follow up with PCP 7. NIDDM Plan: f/u accuchecks & A1C / hypoglycemia protocol / sliding scale insulin / hold oral anti-glycemics / continue Trulicity as scheduled 8. Complex endometrial hyperplasia with atypia Plan: Continue with medroxyprogesterone acetate and follow-up with enterprise architect as scheduled 9.Morbid Obesity BMI is 49 She has coexisting diabetes. This complicates care Plan: can f/u w PCP for STOP BANG questionnaire, hand buffer consult & referral for Bariatric Surgeon / recommend cardiovascular exercise for 40 min 4-5 days a week DVT prophylaxis with SCDs. Disposition likely home after less than 2 midnight's stay Vital Signs Vital Signs Date Time Temp Pulse Resp B/P (MAP) Pulse Ox O2 Delivery O2 Flow Rate FiO2 07/16/19 18:05 18 07/16/19 18:05 Room Air 07/16/19 17:16 98.4 100 97 Laboratory Data Labs 24H Laboratory Tests 2 07/16/19 17:50: Immature Granulocyte % (Auto) 0.2, Neutrophils (%) (Auto) 70.5H, Lymphocytes (%) (Auto) 17.1L, Monocytes (%) (Auto) 9.4H, Eosinophils (%) (Auto) 2.3, Basophils (%) (Auto) 0.5, Neutrophils # (Auto) 4.0, Lymphocytes # (Auto) 1.0L, Monocytes # (Auto) 0.5, Eosinophils # (Auto) 0.1, Basophils # (Auto) 0.0, Nucleated Red Blood Cells % (auto) 0.0, Prothrombin Time 15.9H, Prothromb Time International Ratio 1.30, Anion Gap 12, Glomerular Filtration Rate > 60.0, Calcium Level 9.2, Total Bilirubin 0.9, Direct Bilirubin 0.3H, Aspartate Amino Transf (AST/SGOT) 35, Alanine Aminotransferase (ALT/SGPT) 31, Alkaline Phosphatase 81, Total Creatine Kinase 79, Creatine Kinase MB < 1.0, Creatine Kinase MB Relative Index 1.27, Troponin I < 0.02, Total Protein 7.1, Albumin 2.7L, Albumin/Globulin Ratio 0.61L, Lipase 141 CBC/BMP Laboratory Tests 07/16/19 17:50 Home Medications Scheduled Cholecalciferol (Vitamin D3) (Vitamin D3) 1,000 Unit Tablet, 1,000 UNIT PO DAILY Cyanocobalamin (Vitamin B-12) (Vitamin B12) 2,500 Mcg Tablet, 2,500 MCG PO DAILY Dulaglutide (Trulicity) 0.75 Mg/0.5 Ml Pen.injctr, 0.75 MG SC QWEEK QHS: THURSDAYS Ferrous Sulfate (Ferrous Sulfate) 325 Mg Tablet, 325 MG PO DAILY Furosemide (Furosemide) 40 Mg Tablet, 40 MG PO BID Glipizide (Glipizide ER) 5 Mg Tab.er.24, 10 MG PO BID Magnesium Oxide (Magnesium) 400 Mg Capsule, 400 MG PO DAILY Medroxyprogesterone Acetate (Medroxyprogesterone Acetate) 10 Mg Tablet, 10 MG PO DAILY Multivitamin with Minerals (Hair, Skin and Nails) 1 Each Tablet, 1 TAB PO DAILY Omeprazole (Omeprazole) 40 Mg Capsule.dr, 40 MG PO DAILY Propranolol HCl (Propranolol HCl) 10 Mg Tablet, 10 MG PO DAILY Sitagliptin Phos/Metformin HCl (Janumet 50-1,000 mg Tablet) 1 Each Tablet, 1 TAB PO BID Vitamin B Complex (Vitamin B Complex) 1 Each Capsule, 1 CAP PO DAILY Scheduled PRN Cyclobenzaprine HCl (Cyclobenzaprine HCl) 5 Mg Tablet, 5 MG PO TID PRN for S PASMS Ibuprofen (Ibuprofen) 600 Mg Tablet, 600 MG PO QID PRN for PAIN Allergies Coded Allergies: latex (Verified Allergy, Mild, itching, 03/26/19) A-FIB/CHADSVASC A-FIB History Current/History of A-Fib/PAF?: No Current PO Anticoag Therapy: No ADITYA CAPELLAN MD Jul 16, 2019 19:55
[2019-07-16] MEDS ORDERED: MOM 30ML SUSPENSION UDC PO PRN (20:00)
[2019-07-16] MEDS ORDERED: MAALOX 30 ML SUSP *UDC PO PRN (20:00)
[2019-07-16] MEDS ORDERED: ACETAMINOPHEN TAB 650MG DOSE (2X325MG) PO PRN (20:00)
[2019-07-16] MEDS ORDERED: CYCL5TAB PO (20:19)
[2019-07-16] MEDS ORDERED: SM HTAB3 PO (20:19)
[2019-07-16] MEDS ORDERED: VITA100066 PO (20:19)
[2019-07-16] MEDS: DOCUSATE SODIUM 100 MG CAP PO SCH (21:00)
[2019-07-16] MEDS ORDERED: ENTER DRUG NAME HERE (PATIENT'S OWN MED) SC SCH (21:45)
[2019-07-16] MEDS ORDERED: CYCLOBENZAPRINE 5MG TABLET PO PRN (21:45)
--- NOTE | 2019-07-16 22:12 | ECGEPIP ---
[facility] - ED Test Date: 2019-07-16 Pat Name: LEATHA TANG Department: Room: - Gender: Female Pants Maker: stephani : [id number] Requested By: Aleksandar Salas Order Number: [id number] Reading MD: Lina David Measurements Intervals Hibbs Rate: 102 P: 41 OH: 174 QRS: 14 QRSD: 89 T: -4 QT: 352 QTc: 459 Interpretive Statements SINUS TACHYCARDIA NONSPECIFIC T-WAVE ABNORMALITY ABNORMAL RHYTHM ECG NO PRIOR Electronically Signed on 07-16-2019 22:11:40 EST by Lina David
[2019-07-16 22:30] VITALS: BP 143/69
[2019-07-16] MEDS ORDERED: diphenhydrAMINE CREAM 30GM TOP PRN (22:30)
[2019-07-16] MEDS ORDERED: SPIRONOLACTONE 50 MG TAB PO ONE (23:00)
[2019-07-17] MEDS: CLINDAMYCIN 900 MG in IV 1 EA IV SCH ×3 (00:03→15:00)
[2019-07-17 06:00] VITALS: BP 125/72
[2019-07-17 06:18] LABS: HEMATOCRIT 32.8 % (36.0-47.0); HEMOGLOBIN 10.7 g/dl (12.0-15.5); MEAN CORPUSCULAR HGB CONC 32.6 g/dl (32.0-36.5); MEAN CORPUSCULAR VOLUME 85.9 fl (80.0-96.0); RED BLOOD COUNT 3.82 10^6/uL (4.00-5.40); WHITE BLOOD COUNT 4.2 10^3/uL (4.0-10.0)
[2019-07-17 06:22] LABS: PLATELET COUNT, AUTOMATED 84 10^3/uL (150-450)
[2019-07-17 06:41] LABS: BLOOD UREA NITROGEN 12 MG/DL (7-18); CALCIUM LEVEL 8.6 MG/DL (8.5-10.1); CARBON DIOXIDE LEVEL 26 MEQ/L (21-32); CHLORIDE LEVEL 112 MEQ/L (98-107); CREATININE FOR GFR 0.66 MG/DL (0.55-1.30); GLOMERULAR FILTRATION RATE > 60.0 (>51); GLUCOSE, FASTING 61 MG/DL (70-100); POTASSIUM SERUM 3.4 MEQ/L (3.5-5.1); SODIUM LEVEL 144 MEQ/L (136-145)
[2019-07-17 06:42] LABS: ALBUMIN 2.2 GM/DL (3.2-5.2); ALT/SGPT 29 U/L (12-78); BILIRUBIN,TOTAL 0.8 MG/DL (0.2-1.0); TOTAL PROTEIN 6.1 GM/DL (6.4-8.2)
[2019-07-17] MEDS ORDERED: CYANOCOBALAMIN 500 MCG TAB PO SCH (09:00)
[2019-07-17] MEDS ORDERED: PROPRANOLOL 10 MG TAB PO SCH (09:00)
[2019-07-17] MEDS ORDERED: medroxyPROGESTERone 5MG TABLET PO SCH (09:00)
[2019-07-17] MEDS ORDERED: MAGNESIUM OXIDE 400 MG TAB (MAG-OX) PO SCH (09:00)
[2019-07-17] MEDS ORDERED: FERROUS SULFATE 325MG TAB PO SCH (09:00)
[2019-07-17] MEDS ORDERED: SPIRONOLACTONE 50 MG TAB PO SCH (09:00)
[2019-07-17] MEDS ORDERED: VITAMIN D 1,000 INTERNATIONAL UNITS TABLET PO SCH (09:00)
[2019-07-17] MEDS ORDERED: OMEPRAZOLE 20 MG CAP PO SCH (09:00)
[2019-07-17] MEDS ORDERED: FUROSEMIDE 40 MG TAB PO SCH (09:00)
[2019-07-17 09:32] VITALS: BP 136/72
[2019-07-17] MEDS: DOCUSATE SODIUM 100 MG CAP PO SCH (09:32)
[2019-07-17 11:56] LABS: SPEC. GRAVITY BODY FLUIDS 1.013 (NOT ESTABLISHED)
[2019-07-17 12:01] LABS: APPEARANCE, BODY FLUID CLEAR (CLEAR); ASCITES FL COLOR YELLOW (COLORLESS); SOURCE, BODY FLUID ASCITES
[2019-07-17 12:29] LABS: SOURCE, BODY FLUID ALBUMIN ASCITES; SOURCE, BODY FLUID GLUCOSE ASCITES; SOURCE, BODY FLUID TOT PROTEIN ASCITES; TOTAL PROTEIN, BODY FLUID 1.5 G/DL (NOT ESTABLISHED)
[2019-07-17 14:00] VITALS: BP 130/68
[2019-07-17] MEDS ORDERED: ALDA50TA2 PO (16:01)
--- NOTE | 2019-07-17 16:20 | DS.PDOC ---
Discharge Summary General Date of Admission Jul 16, 2019 at 17:16 Date of Discharge 07/17/19 Discharge Summary PROCEDURES PERFORMED DURING STAY: [None]. ADMITTING DIAGNOSES: 1. Ascites 2/2 GILL 2. Hypertensive crisis 3. Mild abdominal wall cellulitis 4. Thrombocytopenia 5. Uriticaria 6. NIDDM 7. Complex Endometrial Hyperplasia with atypica 8. Morbid Obesity DISCHARGE DIAGNOSES: 1. Ascites 2/2 GILL 2. Hypertensive crisis 3. Mild abdominal wall cellulitis 4. Thrombocytopenia 5. Uriticaria 6. NIDDM 7. Complex Endometrial Hyperplasia with atypica 8. Morbid Obesity COMPLICATIONS/CHIEF COMPLAINT: Ascites, Gill. HISTORY OF PRESENT ILLNESS: "This is a 59-year-old female who presents with complaints of shortness of breath is made worse by moving and better when she sits still for a few weeks. Associate symptoms include a massive amount of weight gain, increased abdominal girth and bilateral lower extremity edema. She has being seen a weather strip mechanic, Dr. Sepulveda in [place] who started her on a diuretic. Her last paracentesis was on June 16; according to the patient. Dr. Sepulveda wa nted to see how she responded to a low-salt diet and the diuretics prior to scheduling another paracentesis. She also reports having fevers, chills, itchy skin and thinks that she may been exposed to people that are sick. She denies feeling congested, denies having a cough denies having nausea , vomiting or diarrhea." HOSPITAL COURSE: Patient received therapeutic paracentesis today with removal 2.1L with reported significant improvement in symptoms. She requested to go as she feels better already and have plans to follow up with her GI physician in [place] next week. Patient is discharged to f/u PMD and GI, to continue diuresis with low sodium restriction diet. May need to set up routine therapeutic paracentesis, stated that she is being evaluated or on list for liver transplant. Patient has been afebrile with no leukocytosis or significant abdominal pain suggestive of SBP. DISCHARGE MEDICATIONS: Please see below. ALLERGIES: Please see below. PHYSICAL EXAMINATION ON DISCHARGE: VITAL SIGNS: Please see below. General: No acute distress, Alert Eyes: Normal sclera, EOMI, SINA HENT: Atraumatic, neck supple, moist mucous membranes Cardiovascular: Normal rate, normal rhythm. No murmurs appreciated. Pulmonary: Clear to auscultation b/l, no wheezing GI: Soft, nontender, distended with slightly erythema in lower abdomen Skin: Warm and dry Neuro: CN grossly intact. No focal deficits. Strengths equal b/l. Psych: oriented x 3 LABORATORY DATA: Please see below. ACTIVITY: [As tolerated]. DIET: Low sodium diet DISCHARGE PLAN: c/w low sodium diet restriction and diuresis f/u PMD and GI DISPOSITION: Home. DISCHARGE INSTRUCTIONS: c/w low sodium diet restriction and diuresis f/u PMD and GI ITEMS TO FOLLOWUP ON ON OUTPATIENT: Ascitic fluid workup DISCHARGE CONDITION: [Stable]. TIME SPENT ON DISCHARGE: 32 minutes. Vital Signs/I&Os Vital Signs Date Time Temp Pulse Resp B/P (MAP) Pulse Ox O2 Delivery O2 Flow Rate FiO2 07/17/19 14:00 98.4 79 17 130/68 (88) 99 07/17/19 12:00 Room Air I&O- Last 24 Hours up to 6 AM 07/17/19 06:00 Intake Total 50 ml Output Total 150 ml Balance -100 ml Laboratory Data Labs 24H Laboratory Tests 2 07/16/19 17:50: Immature Granulocyte % (Auto) 0.2, Neutrophils (%) (Auto) 70.5H, Lymphocytes (%) (Auto) 17.1L, Monocytes (%) (Auto) 9.4H, Eosinophils (%) (Auto) 2.3, Basophils (%) (Auto) 0.5, Neutrophils # (Auto) 4.0, Lymphocytes # (Auto) 1.0L, Monocytes # (Auto) 0.5, Eosinophils # (Auto) 0.1, Basophils # (Auto) 0.0, Nucleated Red Blood Cells % (auto) 0.0, Prothrombin Time 15.9H, Prothromb Time International Ratio 1.30, Anion Gap 12, Glomerular Filtration Rate > 60.0, Calcium Level 9.2, Total Bilirubin 0.9, Direct Bilirubin 0.3H, Aspartate Amino Transf (AST/SGOT) 35, Alanine Aminotransferase (ALT/SGPT) 31, Alkaline Phosphatase 81, Total Creatine Kinase 79, Creatine Kinase MB < 1.0, Creatine Kinase MB Relative Index 1.27, Troponin I < 0.02, Total Protein 7.1, Albumin 2.7L, Albumin/Globulin Ratio 0.61L, Lipase 141 07/17/19 05:43: Nucleated Red Blood Cells % (auto) 0.0, Anion Gap 6L, Glomerular Filtration Rate > 60.0, Calcium Level 8.6, Total Bilirubin 0.8, Aspartate Amino Transf (AST/SGOT) 33, Alanine Aminotransferase (ALT/SGPT) 29, Alkaline Phosphatase 67, Total Protein 6.1L, Albumin 2.2L, Albumin/Globulin Ratio 0.56L, Immature Platelet Fraction 1.3 07/17/19 11:25: Body Fluid Source ASCITES, Body Fluid Color YELLOW, Body Fluid Appearance CLEAR, Body Fluid Specific Fleetwood 1.013, Body Fluid WBC (Auto) 584H, Body Fluid RBC (Auto) < 2, Body Fluid Mononuclear Cells % Auto 88.4H, Fluid Polymorphonuclear Cell % Auto 11.6H, Body Fluid Glucose Source ASCITES, Body Fluid Glucose 94, Body Fluid Protein Source ASCITES, Body Fluid Total Protein 1.5, Body Fluid Albumin Source ASCITES, Body Fluid Albumin 0.6 CBC/BMP Laboratory Tests 07/16/19 17:50 07/17/19 05:43 Microbiology Microbiology 07/17/19 Gram Stain - Final, Resulted 07/17/19 Body Fluid Culture, Resulted Pending 07/16/19 Respiratory Virus Panel (PCR) (TIA) - Final, Complete Discharge Medications Scheduled Cholecalciferol (Vitamin D3) (Vitamin D3) 1,000 Unit Tablet, 1,000 UNIT PO DAILY, (Reported) Cyanocobalamin (Vitamin B-12) (Vitamin B12) 2,500 Mcg Tablet, 2,500 MCG PO DA ADELA, (Reported) Dulaglutide (Trulicity) 0.75 Mg/0.5 Ml Pen.injctr, 0.75 MG SC QWEEK, (Reported) QHS: THURSDAYS Ferrous Sulfate (Ferrous Sulfate) 325 Mg Tablet, 325 MG PO DAILY, (Reported) Furosemide (Furosemide) 40 Mg Tablet, 40 MG PO BID, (Reported) Glipizide (Glipizide ER) 5 Mg Tab.er.24, 10 MG PO BID, (Reported) Magnesium Oxide (Magnesium) 400 Mg Capsule, 400 MG PO DAILY, (Reported) Medroxyprogesterone Acetate (Medroxyprogesterone Acetate) 10 Mg Tablet, 10 MG PO DAILY, (Reported) Multivitamin with Minerals (Hair, Skin and Nails) 1 Each Tablet, 1 TAB PO DAILY, (Reported) Omeprazole (Omeprazole) 40 Mg Capsule.dr, 40 MG PO DAILY, (Reported) Propranolol HCl (Propranolol HCl) 10 Mg Tablet, 10 MG PO DAILY, (Reported) Sitagliptin Phos/Metformin HCl (Janumet 50-1,000 mg Tablet) 1 Each Tablet, 1 TAB PO BID, (Reported) Spironolactone (Aldactone) 50 Mg Tablet, 100 MG PO BID Vitamin B Complex (Vitamin B Complex) 1 Each Capsule, 1 CAP PO DAILY, (Reported) Scheduled PRN Cyclobenzaprine HCl (Cyclobenzaprine HCl) 5 Mg Tablet, 5 MG PO TID PRN for SPASMS, (Reported) Allergies Coded Allergies: latex (Verified Allergy, Mild, itching, 03/26/19) HENRRY PINK MD Jul 17, 2019 16:20
--- NOTE | 2019-07-18 08:45 | REP ---
ULTRASOUND GUIDED ABDOMINAL PARACENTESIS: Patient was referred for ultrasound guided paracentesis. Informed consent was obtained. Under sterile conditions and after satisfactory administration of local anesthesia, using ultrasound guidance, access to right flank ascites fluid is obtained using an #8-Yi paracentesis catheter. The catheter was attached to wall suction. Approximately 2150 mL of thin yellow fluid is withdrawn. There were no immediate complications. The fluid was sent for appropriate laboratory testing per referring clinician orders. Electronically Signed by Nicholas Snow MD 07/20/2019 04:18 P
== END 2019-07-17 17:50 | disposition home or self-care (01) ==
LOC: M ED 17:15 → M ED INP 17:16 → M MSPAV 22:33
PROVIDERS: ADMIT Internal Medicine; ATTEND Student in an Organized Health Care Education/Training Program
DX: R18.8 Other ascites (principal); K75.81 Nonalcoholic steatohepatitis (NASH); I16.0 Hypertensive urgency; L03.311 Cellulitis of abdominal wall; D69.6 Thrombocytopenia, unspecified; E11.9 Type 2 diabetes mellitus without complications; N85.02 Endometrial intraepithelial neoplasia [EIN]; E66.01 Morbid (severe) obesity due to excess calories; Z79.84 Long term (current) use of oral hypoglycemic drugs; Z79.899 Other long term (current) drug therapy; Z91.040 Latex allergy status
CPT/HCPCS: 36415; 80048; 80053; 80076; 82042; 82550; 82553; 82945; 83690; 84157; 84315; 84484; 85025; 85027; 85049; 85055; 85610; 87070; 87205; 87486; 87581; 87633; 87798; 89051; 93005; 96365; 99285; G0378

== ENCOUNTER 2019-07-18 11:59 | Emergency (ER) | payer MEDICARE ==
[~2019-07-18] VITALS: Ht 154.9 cm; Wt 113.2 kg
[~2019-07-18 11:59] MED LIST changes: +ALDA50TA2 PO; +SM HTAB3 PO; +VITA100066 PO
[2019-07-18 12:01] VITALS: BP 167/74
[2019-07-18] MEDS ORDERED: LIDOCAINE W/EPINEPHRINE 1% 20ML VIAL SC ONE (14:00)
== END 2019-07-18 14:46 | disposition home or self-care (01) ==
LOC: M ED 11:59
DX: R18.8 Other ascites (principal); K91.89 Other postprocedural complications and disorders of digestive system; E11.9 Type 2 diabetes mellitus without complications; Z91.040 Latex allergy status; Z79.899 Other long term (current) drug therapy; Z79.84 Long term (current) use of oral hypoglycemic drugs

== ENCOUNTER → 2019-07-31 | Outpatient (CLI) | payer MEDICARE ==
--- NOTE | 2019-07-31 08:21 | REP ---
Clinical: Abdominal pain. Technique: Real time clifford scale ultrasound examination using curved array transducer. Findings: Ultrasound examination is nondiagnostic due to body habitus, technical factors, and significant interposed bowel gas. Impression: Nondiagnostic ultrasound examination Electronically Signed by Michael Chisholm MD 07/31/2019 08:13 A
== END ==
LOC: M RAD 07:03
PROVIDERS: ATTEND Internal Medicine Gastroenterology
DX: R93.9 Diagnostic imaging inconclusive due to excess body fat of patient (principal); R10.84 Generalized abdominal pain; K31.811 Angiodysplasia of stomach and duodenum with bleeding; K72.90 Hepatic failure, unspecified without coma; K74.0 Hepatic fibrosis

== ENCOUNTER 2019-09-15 10:28 | Outpatient (RCR) | payer MEDICARE | END 2019-10-03 | LOC: M PT 10:28 | PROVIDERS: ATTEND Family Medicine | DX: R60.9 Edema, unspecified (principal) ==

== ENCOUNTER → 2020-03-10 | Outpatient (CLI) | payer MEDICARE ==
[~2020-03-10] MED LIST changes: -LACT10SO29 PO; +LACT20EL PO; +PANT40TA29 PO; -PANT40TA3 PO
[2020-04-15 12:50] LABS: HEMATOCRIT 37.8 % (36.0-47.0); HEMOGLOBIN 12.5 g/dl (12.0-15.5); MEAN CORPUSCULAR HEMOGLOBIN 29.1 pg (27.0-33.0); MEAN CORPUSCULAR HGB CONC 33.1 g/dl (32.0-36.5); MEAN CORPUSCULAR VOLUME 88.1 fl (80.0-96.0); RED BLOOD COUNT 4.29 10^6/uL (4.00-5.40); WHITE BLOOD COUNT 4.9 10^3/uL (4.0-10.0)
[2020-04-15 12:51] LABS: PLATELET COUNT, AUTOMATED 56 10^3/uL (150-450)
[2020-04-15 13:23] LABS: INR 1.22; PROTHROMBIN TIME 15.7 SECONDS (11.8-14.0)
--- NOTE | 2020-05-02 08:31 | REP ---
RIGHT LOWER EXTREMITY DUPLEX DOPPLER VENOUS ULTRASOUND: HISTORY: Edema. FINDINGS: Real time compression and duplex Doppler interrogation of the right lower extremity deep venous system is performed. The right common femoral, superficial femoral and popliteal veins are fully compressible with transducer pressure and demonstrates normal spontaneous and phasic flow without evidence of deep venous thrombosis. IMPRESSION: No evidence of deep vein thrombosis right lower extremity. MTDD
--- NOTE | 2020-05-02 08:32 | REP ---
RIGHT UPPER QUADRANT ULTRASOUND: HISTORY: Cirrhosis, ascites, bloating. FINDINGS: Real time sonographic evaluation of right upper quadrant is performed. The patient has had a prior cholecystectomy. There is no intrahepatic or extrahepatic biliary dilatation. The common bile duct measures 4 mm. The liver demonstrates diffuse heterogeneous increased echotexture compatible with diffuse fibrofatty infiltration. No gross liver mass is seen. The pancreas is not well visualized due to overlying bowel gas. The right kidney demonstrates no hydronephrosis and is normal in size at 12.3 cm in length. A trace free fluid is seen in the right upper quadrant. IMPRESSION: Status post cholecystectomy without biliary dilatation. Trace free fluid in the right upper quadrant. Diffuse fibrofatty infiltration of the liver. MTDD
[2020-05-07 16:07] LABS: ALBUMIN 3.2 GM/DL (3.2-5.2); ALT/SGPT 57 U/L (12-78); BILIRUBIN,TOTAL 1.5 MG/DL (0.2-1.0); BLOOD UREA NITROGEN 9 MG/DL (7-18); CALCIUM LEVEL 10.2 MG/DL (8.5-10.1); CARBON DIOXIDE LEVEL 25 MEQ/L (21-32); CHLORIDE LEVEL 110 MEQ/L (98-107); CREATININE FOR GFR 0.89 MG/DL (0.55-1.30); GLOMERULAR FILTRATION RATE > 60.0 (>51); GLUCOSE, FASTING 367 MG/DL (70-100); MAGNESIUM LEVEL 2.1 MG/DL (1.8-2.4); POTASSIUM SERUM 4.5 MEQ/L (3.5-5.1); SODIUM LEVEL 141 MEQ/L (136-145); TOTAL 25(OH) VITAMIN D 30.3 NG/ML (30.0-100.0); TOTAL PROTEIN 7.3 GM/DL (6.4-8.2); VITAMIN B12 LEVEL > 2000 PG/ML (247-911)
== END ==
LOC: M LAB 07:03
PROVIDERS: ATTEND Internal Medicine Gastroenterology
DX: K74.0 Hepatic fibrosis (principal); R18.8 Other ascites; R14.0 Abdominal distension (gaseous); D69.6 Thrombocytopenia, unspecified; I85.00 Esophageal varices without bleeding; R60.0 Localized edema; Z79.899 Other long term (current) drug therapy

== ENCOUNTER → 2020-03-10 | Outpatient (CLI) | payer MEDICARE ==
[2020-04-15 12:49] LABS: HEMATOCRIT 37.8 % (36.0-47.0); HEMOGLOBIN 12.5 g/dl (12.0-15.5); MEAN CORPUSCULAR HEMOGLOBIN 29.1 pg (27.0-33.0); MEAN CORPUSCULAR HGB CONC 33.1 g/dl (32.0-36.5); MEAN CORPUSCULAR VOLUME 88.1 fl (80.0-96.0); PLATELET COUNT, AUTOMATED 56 10^3/uL (150-450); RED BLOOD COUNT 4.29 10^6/uL (4.00-5.40); WHITE BLOOD COUNT 4.9 10^3/uL (4.0-10.0)
[2020-05-07 16:07] LABS: ALBUMIN 3.2 GM/DL (3.2-5.2); ALT/SGPT 57 U/L (12-78); BILIRUBIN,TOTAL 1.4 MG/DL (0.2-1.0); BLOOD UREA NITROGEN 8 MG/DL (7-18); CARBON DIOXIDE LEVEL 25 MEQ/L (21-32); CHLORIDE LEVEL 109 MEQ/L (98-107); CHOLESTEROL LEVEL 209 MG/DL (<200); CHOLESTEROL RISK RATIO 2.824 (<5); CREATININE FOR GFR 0.91 MG/DL (0.55-1.30); GLOMERULAR FILTRATION RATE > 60.0 (>51); GLUCOSE, FASTING 369 MG/DL (70-100); HDL CHOLESTEROL 74 MG/DL (>40); HEMOGLOBIN A1c 10.7 %; LDL CHOLESTEROL 119 MG/DL (<100); NON-HDL-C 135 MG/DL; POTASSIUM SERUM 4.5 MEQ/L (3.5-5.1); SODIUM LEVEL 141 MEQ/L (136-145); TOTAL PROTEIN 7.3 GM/DL (6.4-8.2); TRIGLYCERIDES LEVEL 82 MG/DL (<150)
== END ==
LOC: M LAB 07:03
PROVIDERS: ATTEND Family Medicine
DX: E11.9 Type 2 diabetes mellitus without complications (principal)

== ENCOUNTER → 2020-05-20 | Outpatient (REF) | payer MEDICARE, OTHER | LOC: M SFHCWAGY 13:15 | PROVIDERS: ATTEND Nurse Practitioner Women's Health | DX: Z12.4 Encounter for screening for malignant neoplasm of cervix (principal) | CPT/HCPCS: 81002; 87624; G0101; G0123 ==

== ENCOUNTER 2020-06-21 16:47 | Inpatient (IN) | payer MEDICARE ==
[~2020-06-21] VITALS: Ht 152.4 cm; Wt 94.8 kg
[2020-06-21] MEDS ORDERED: SPIR50TA4 PO ×2 (17:43→21:13)
[2020-06-21] MEDS ORDERED: BASA100I SQ (17:43)
[2020-06-21] MEDS ORDERED: PANT40TA29 PO (17:43)
[2020-06-21 17:48] LABS: BASO % 0.2 % (0.0-1.0); EOS % 0.1 % (0.0-3.0); HEMATOCRIT 40.8 % (36.0-47.0); HEMOGLOBIN 12.9 g/dl (12.0-15.5); LYMPH # 0.7 10^3/uL (1.5-5.0); LYMPH % 8.2 % (24.0-44.0); MEAN CORPUSCULAR HEMOGLOBIN 27.3 pg (27.0-33.0); MEAN CORPUSCULAR HGB CONC 31.6 g/dl (32.0-36.5); MEAN CORPUSCULAR VOLUME 86.4 fl (80.0-96.0); MONO # 0.4 10^3/uL (0.0-0.8); NEUTROPHILS # 7.6 10^3/uL (1.5-8.5); NEUTROPHILS % 86.7 % (36.0-66.0); RED BLOOD COUNT 4.72 10^6/uL (4.00-5.40); WHITE BLOOD COUNT 8.8 10^3/uL (4.0-10.0)
[2020-06-21 17:55] LABS: PLATELET COUNT, AUTOMATED 67 10^3/uL (150-450)
[2020-06-21 18:02] LABS: INR 1.27; PROTHROMBIN TIME 16.2 SECONDS (12.5-14.3)
[2020-06-21 18:16] LABS: ALBUMIN 3.1 GM/DL (3.2-5.2); BILIRUBIN,DIRECT 0.6 MG/DL (0.0-0.2); BILIRUBIN,TOTAL 1.9 MG/DL (0.2-1.0); TOTAL PROTEIN 7.1 GM/DL (6.4-8.2)
[2020-06-21] MEDS ORDERED: ISOVUE-370 76% 100ML VIAL As Ordered ONE (18:22)
[2020-06-21] MEDS ORDERED: MORPHINE 2 MG/ML 1ML VIAL (J2270) IV ONE ×2 (18:30→20:45)
[2020-06-21] MEDS ORDERED: NS 500 ML IV ONE (18:30)
--- NOTE | 2020-06-21 19:37 | REPVR ---
PROCEDURE INFORMATION: Exam: CT Abdomen And Pelvis With Contrast Exam date and time: 06/21/2020 6:40 PM Age: 60 years old Clinical indication: Abdominal pain; Localized; Lower; Additional info: Lower abd pain, cirrhosis TECHNIQUE: Imaging protocol: Computed tomography of the abdomen and pelvis with intravenous contrast. Radiation optimization: All CT scans at this facility use at least one of these dose optimization techniques: automated exposure control; mA and/or kV adjustment per patient size (includes targeted exams where dose is matched to clinical indication); or iterative reconstruction. Contrast material: ISOVUE 370; Contrast volume: 100 ml; Contrast route: INTRAVENOUS (IV); COMPARISON: CT ABD PELVIS W/O CONTRAST 04/28/2019 6:52 PM FINDINGS: Liver: The liver surface is nodular representing cirrhosis. Gallbladder and bile ducts: Cholecystectomy clips. Pancreas: Normal. No ductal dilation. Spleen: Spleen is enlarged and measures 16 cm. Adrenal glands: Normal. No mass. Kidneys and ureters: Normal. No hydronephrosis. Stomach and bowel: Gastric varices. There is subtle thickening of the duodenum which may be under distension but cannot be fully evaluated secondary to lack of oral contrast. There is surrounding mesenteric edema. Appendix: No evidence of appendicitis. Intraperitoneal space: Small amount of ascites in the abdomen and pelvis. Vasculature: Unremarkable. No abdominal aortic aneurysm. Lymph nodes: Unremarkable. No enlarged lymph nodes. Urinary bladder: Unremarkable as visualized. Reproductive: Unremarkable as visualized. Bones/joints: Unremarkable. No acute fracture. Soft tissues: Diffuse anasarca. Redemonstration of a anterior abdominal midline defect below the level of umbilicus with hernia of the omental fat. There is extensive edema and some loculation of the fluid in the herniated sac. One of the loculated fluid collection measures 2.3 x 2.8 cm with subtle peripheral enhancement suggestive of infection. Overlying the skin is thickened representing cellulitis. IMPRESSION: Cirrhosis with small amount of ascites. Anasarca. Splenomegaly. Gastric varices. Subtle thickening of the duodenal wall with surrounding mesenteric edema. However the duodenum could not be fully evaluated secondary to lack of oral contrast. Possible duodenitis. Anterior abdominal midline hernia containing omental fat and loculated fluid. One of the loculated fluid collection measures 2.3 x 2.8 cm with subtle peripheral enhancement suggestive of superimposed infection. Overlying skin is thickened with the subcutaneous fat stranding representing cellulitis. Electronically signed by: Edgar Burns On 06/21/2020 19:37:12 PM
[2020-06-21] MEDS: HumaLOG INSULIN (NovoLOG) PER UNIT SC SCH (21:00)
[2020-06-21] MEDS: PROPRANOLOL 20 MG TAB PO SCH (21:00)
[2020-06-21] MEDS ORDERED: VITA500T41 PO (21:13)
[2020-06-21] MEDS ORDERED: PANT-23 PO (21:13)
[2020-06-21] MEDS ORDERED: VITMTA PO (21:13)
[2020-06-21] MEDS ORDERED: GLIP10TA18 PO (21:13)
[2020-06-21] MEDS ORDERED: PROP40TA62 PO (21:13)
--- NOTE | 2020-06-21 21:20 | HPEPDOC ---
[facility] Medical History & Physical Date of Admission Jun 21, 2020 Date of Service: Jun 21, 2020 Primary Care Physician: SHARON BONDS MD [facility] Attending Physician: ADITYA CAPELLAN MD History and Physical CHIEF COMPLAINT: Lower abdominal pain HISTORY OF PRESENT ILLNESS: Patient is a 60-year-old female [facility] after experiencing bilateral lower abdominal pain, subjective fevers/chills without nausea or vomiting which began earlier this morning. 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 Patient follows with Dr. Sepulveda in [place] for GI care, last appointment earlier this fall. Patient shares that she has been noncompliant with her diuretics for approximately one week secondary to bothersome urinary frequency. She has noticed over the course of this time, increased fluid retention, particularly in her abdomen. She denies any chest pain, shortness of breath or worsening dyspnea on exertion. Denies nausea, vomiting, reflux, changes in stooling habits. In the ED, patient was found to be tachycardic with a pulse of 111. Exam findings consistent with ascites and bilateral lower panicular cellulitis. Laboratory workup demonstrated a chronic lymphocytopenia with a platelet count of 67. Serum electrolytes and kidney function within normal limits. AST/ALT of 96/111, total and direct bilirubin of 1.9 and 0.6 respectively. Albumin of 3.1 and a lactic acid of 3.0. CT scan the patient's abdomen was performed which was consistent with the stigmata of cirrhosis, mesenteric edema, possible duodenitis and an anterior abdominal midline hernia with omental fat and two loculated collections of fluid. Hospitalist team was contacted to admit the patient for further evaluation and management. PAST MEDICAL HISTORY: GILL cirrhosis Insulin-dependent diabetes mellitus, poor control Simple and focal complex endometrial hyperplasia without significant cytologic atypia History of bilateral lower leg cellulitis PAST SURGICAL HISTORY: Cholecystectomy, 1991 Status post left knee arthroplasty Colonoscopy, 2013 Hysteroscopy and D&C with polypectomy, 2018 SOCIAL HISTORY: Patient is single, she reports that she lives alone in her own modular home in [place]. Patient does not use alcohol, other illicit drugs and has been a lifelong nonsmoker. She is retired having previously worked for the [employer] for over 20 years. FAMILY HISTORY: Father: , 72, [place], hypertension, CVA, colon cancer, prostate cancer Mother: , 68, [place], hypertension, diabetes, breast cancer Siblings: Hypertension ALLERGIES: Latex, contact irritant REVIEW OF SYSTEMS: CONSTITUTIONAL: Patient reports experiencing subjective fevers and chills earlier this morning, they dissipated throughout the day. Reports subjective weight gain, particularly in her abdomen. HEENT: Denies any headaches, changes in vision, changes in hearing, difficulty swallowing. CARDIOVASCULAR: Denies chest pain, palpitations, syncopal or near syncopal episodes. RESPIRATORY: Denies any shortness of breath, cough, wheeze, SIMS GASTROINTESTINAL: Reports bilateral lower abdominal pain please see HPI. GENITOURINARY: Reported increasing polyuria secondary to diuretic use. Please see HPI. SKIN: Bilateral lower abdominal swelling and erythema of one day duration. Please see HPI. Slight increase in lower extremity swelling. MUSCULOSKELETAL: Denies any muscles aches or pains. NEUROLOGICAL: Denies any changes in sensorium including numbness, tingling, weakness ENDOCRINE: Patient does report noncompliance with her diabetic diet. Fasting sugars ranging from 230-240. Polyuria as mentioned above, denies polydipsia. HEMATOLOGIC/LYMPHATIC: Denies any bruising, or easy bleeding. HOME MEDICATIONS: Please see below. PHYSICAL EXAMINATION: VITAL SIGNS: Temperature 99.8, pulse 95, respiratory rate 18, blood pressure 154/66 (95), pulse oximetry 97 % on room air. GENERAL APPEARANCE: Patient is interviewed and examined in the emergency department. Patient was found to be resting comfortably on the ED stretcher in no acute distress. Nontoxic in appearance. Patient is alert and oriented and able to answer questions regarding her medical history. HEENT: Normocephalic, atraumatic, EOMI without scleral icterus. Mucus membranes moist with fair oral hygiene. No appreciable cervical lymphadenopathy, JVD difficult to distinguish secondary to body habitus. CARDIOVASCULAR: Distant but audible S1 and S2 of regular rate and rhythm without any murmurs, trace lower extremity edema bilaterally LUNGS: Clear to auscultation bilaterally ABDOMEN: Obese, Tense ascites, notable erythema above the level of the umbilicus bilaterally, warm to the touch, mild bilateral lower quadrant tenderness to palpation. MSK/EXT: Patient is able to move all extremities equally bilaterally, trace lower extremity edema. Radial and posterior tibial pulses 2+ bilaterally. NEUROLOGICAL: Cranial nerves II through XII are grossly intact, no facial drooping or dysarthric speech. PSYCHIATRIC: Alert and oriented to person place and time. Mood and affect are appropriate given patient's current medical condition LABORATORY DATA: See below. IMAGING: Abdomen pelvis CT (06/21/20): Cirrhosis with small amount of ascites. Anasarca. Splenomegaly. Gastric varices. Subtle thickening of the duodenal wall with surrounding mesenteric edema. The duodenum could not fully be evaluated secondary to lack of oral contrast. Possible duodenitis. Anterior abdominal wall midline hernia containing omental fat and loculated fluid. One of the loculated fluid collections measures 2.3 x 2.8 cm with subtle peripheral enhancement sugg estive of superimposed infection. Overlying skin is thickened with subcutaneous fat stranding representing cellulitis. MICROBIOLOGY: Blood cultures (06/21/20): Pending ASSESSMENT: Patient is a 60-year-old female, presented to ED on the evening of 06/21/20 with a chief complaint of bilateral lower abdominal pain. Patient does carry a history of cirrhosis secondary to GILL, IDDM with noncompliance. Upon presentation, patient was found to be tachycardic with a pulse of 111. Exam findings consistent with ascites and bilateral lower panicular cellulitis. Laboratory workup demonstrated a chronic lymphocytopenia with a platelet count of 67. Serum electrolytes and kidney function within normal limits. AST/ALT of 96/111, total and direct bilirubin of 1.9 and 0.6 respectively. Albumin of 3.1 and a lactic acid of 3.0. CT scan the patient's abdomen was performed which was consistent with the stigmata of cirrhosis, mesenteric edema, possible duodenitis and an anterior abdominal midline hernia with omental fat and two loculated collections of fluid. Patient to be admitted to the hospital for IR drainage of the loculations and ascitic fluid testing. At the time of admission, patient was found to be clinically stable. In light of this, we will hold off on treating the patient with any antibiotic therapy prior to the aforementioned evaluation of the ascitic fluid. PLAN: #Ascites, GILL, complicated by medication noncompliance -Patient shares that she has not been taking her diuretic for the last week, 2/2 to frequent urination. -Follows with GI, Dr. Sepulveda, in [place]. Last ascitic tap performed in 07/23. -Small amount of ascites noted on CT imaging, mesenteric edema. Documented varices. -AST/ALT of 96/111, alkaline phos of 144, ammonia 35, albumin 3.1. -MELD (2016) of 12, indicating 6.0% estimated 3 month mortality. -Continue home medications of Lasix, spironolactone, propranolol, PPI. -Low sodium diet #Midline hernia, loculated fluid collections -Anticipate primary team to contact IR for drainage in the morning -Given patient's overall clinical condition, we will hold off on starting antibiotics -General surgery has been contacted by the emergency department and is aware of the patient. -Suspect loculations may just represent entrapment of ascitic fluid. #Abdominal wall cellulitis -Notable cellulitis above the level of the umbilicus, confirmed on CT abdomen and pelvis -As mentioned above, we will defer starting antibiotics until after IR drainage of fluid collections. #Chronic thrombocytopenia -2/2 to GILL and low levels of thrombopoietin -Care to avoid heparin #Insulin-dependent diabetes -Home medications Janumet, Glipizide,Trulicity, 25 U Basaglar. Pt reports poor diet compliance, fasting of 230-240. -We will hold patient's home oral anti-glycemic medications -Will recheck A1c -Sliding scale insulin -Hypoglycemia protocol -Diabetic Diet Morbid obesity -BMI of 41, complicating care -No documented history of LEENA, outpatient follow-up for screening and evaluation. -Dietary consult DVT PROPHYLAXIS: SCD CODE STATUS: DNR/DNI DISPOSITION: Anticipate 2 night stay Vital Signs Vital Signs Date Time Temp Pulse Resp B/P (MAP) Pulse Ox O2 Delivery O2 Flow Rate FiO2 06/21/20 20:51 18 Room Air 06/21/20 19:23 99.8 101 154/66 (95) 97 Laboratory Data Labs 24H Laboratory Tests 2 06/21/20 17:33: Immature Granulocyte % (Auto) 0.8, Neutrophils (%) (Auto) 86.7H, Lymphocytes (%) (Auto) 8.2L, Monocytes (%) (Auto) 4.0, Eosinophils (%) (Auto) 0.1, Basophils (%) (Auto) 0.2, Neutrophils # (Auto) 7.6, Lymphocytes # (Auto) 0.7L, Monocytes # (Auto) 0.4, Eosinophils # (Auto) 0.0, Basophils # (Auto) 0.0, Nucleated Red Blood Cells % (auto) 0.0, Immature Platelet Fraction 3.2, Prothrombin Time 16.2H, Prothromb Time International Ratio 1.27, Urine Color NIC, Urine Appearance HAZY, Urine pH 5.0, Urine Specific Howard 1.041, Urine Protein 2+H, Urine Glucose (UA) 3+H, Urine Ketones TRACEH, Urine Blood 2+H, Urine Nitrite NEGATIVE, Urine Bilirubin NEGATIVE, Urine Urobilinogen 0.2, Urine Leukocyte Esterase NEGATIVE, Urine WBC (Auto) 1, Urine RBC (Auto) 4H, Urine Hyaline Casts (Auto) 0, Urine Bacteria (Auto) NEGATIVE, Urine Squamous Epithelial Cells 6, Urine Mucus (Auto) SMALL, Urine Sperm (Auto) , Lactic Acid Level 3.0*H, Total Bilirubin 1.9H, Direct Bilirubin 0.6H, Aspartate Amino Transf (AST/SGOT) 96H, Alanine Aminotransferase (ALT/SGPT) 111H, Alkaline Phosphatase 144H, Ammonia 3 5H, Total Protein 7.1, Albumin 3.1L, Albumin/Globulin Ratio 0.8L, Lipase 85 06/21/20 17:38: POC Glucose (Misc Panel) 291H, POC Sodium (Misc Panel) 136, POC Potassium (Misc Panel) 4.3, POC Chloride (Misc Panel) 104, POC Total CO2 (Misc Panel) 23.0, POC Blood Urea Nitrogen (Misc Panel 12, POC Ionized Calcium (Misc Panel) 5.2, POC Creatinine (Misc Panel) 0.6, POC Hematocrit (Misc Panel) 39.0 CBC/BMP Laboratory Tests 06/21/20 17:33 Microbiology Microbiology 06/21/20 Blood Culture, Received Pending 06/21/20 Blood Culture, Received Pending Home Medications Scheduled Cyanocobalamin (Vitamin B-12) (Vitamin B-12) 500 Mcg Tablet, 500 MCG PO DAILY Dulaglutide (Trulicity) 0.75 Mg/0.5 Ml Pen.injctr, 0.75 MG SC QWEEK QHS: THURSDAYS Ferrous Sulfate (Ferrous Sulfate) 325 Mg Tablet, 325 MG PO DAILY Furosemide (Furosemide) 40 Mg Tablet, 40 MG PO BID Glipizide (Glipizide ER) 10 Mg Tab.er.24, 10 MG PO BID Insulin Glargine,Hum.rec.anlog (Basaglar Kwikpen U-100) 100 Unit/1 Ml Insuln.pen, 25 UNITS SQ QHS Magnesium Oxide (Magnesium) 400 Mg Capsule, 400 MG PO DAILY Medroxyprogesterone Acetate (Medroxyprogesterone Acetate) 10 Mg Tablet, 10 MG PO QHS Multivitamin with Minerals (Hair, Skin and Nails) 1 Each Tablet, 1 TAB PO DAILY Multivitamins (Thera M Plus Tablet) 1 Each Tablet, 1 TAB PO DAILY Pantoprazole Sodium (Pantoprazole Sodium) 40 Mg Tablet.dr, 40 MG PO BID Propranolol HCl (Propranolol HCl) 40 Mg Tablet, 20 MG PO BID Sitagliptin Phos/Metformin HCl (Janumet 50-1,000 mg Tablet) 1 Each Tablet, 1 TAB PO BID Vitamin B Complex (Vitamin B Complex) 1 Each Capsule, 1 CAP PO DAILY Scheduled PRN Spironolactone (Spironolactone) 50 Mg Tablet, 50 MG PO BID PRN for EDEMA Allergies Coded Allergies: latex (Verified Allergy, Mild, itching, 03/26/19) A-FIB/CHADSVASC A-FIB History Current/History of A-Fib/PAF?: No GME ATTESTATION GME ATTESTATION My faculty preceptor for this patient encounter was physically present during the encounter and was fully available. All aspects of the patient interview, examination, medical decision making process, and medical care plan development were reviewed and approved by the faculty preceptor. The faculty preceptor is aware and concurs with the plan as stated in the body of this note and will attest to such by his/her cosignature. GME ATTESTATION GME ATTESTATION My faculty preceptor for this patient encounter was physically present during the encounter and was fully available. All aspects of the patient interview, examination, medical decision making process, and medical care plan development were reviewed and approved by the faculty preceptor. The faculty preceptor is aware and concurs with the plan as stated in the body of this note and will a ttest to such by his/her cosignature. ATTENDING NOTE Time of service 952pm I reviewed the H&P and agree with the findings as documented by . Ms. Fagan is a 60 yr old w a hx of liver cirrhosis 2/2 GILL complicated by thorombocytopenia & ascites, IDDM & class 3 obesity who presented w abdominal pain and admitted to not taking her diuretics for the last week; she will be admitted for evaluation loculated collections of abdominal fluid possibly 2/2 ascites and early abdominal wall cellulitis. Plan: will hold off abx for now & will ask the day time team to consult IR for image guided paracentesis / will also consult Gen Surg to comment on whether the loculations are due to ascites or another process and to comment on the possibility of duodenitis seen on CT GABRIELA BOURNE DO Jun 21, 2020 21:20 ADITYA CAPELLAN MD Jun 21, 2020 23:46
[2020-06-21] MEDS ORDERED: DEXTROSE 50% 50 ML SYRINGE IV PRN (22:15)
[2020-06-21] MEDS ORDERED: GLUCOSE 4GM CHEW TABLET PO PRN (22:15)
[2020-06-21] MEDS ORDERED: GLUCAGON INJ 1MG VIAL SC PRN (22:15)
[2020-06-21 22:21] LABS: HEMOGLOBIN A1c 9.3 %
[2020-06-21 23:30] VITALS: BP 130/71
[2020-06-21] MEDS ORDERED: SPIRONOLACTONE 50 MG TAB PO PRN (23:45)
[2020-06-22] MEDS: PANTOPRAZOLE 40MG TAB (PROTONIX) PO SCH ×3 (00:30→21:10)
[2020-06-22] MEDS: medroxyPROGESTERone 5MG TABLET PO SCH ×2 (00:30→21:09)
[2020-06-22 06:00] VITALS: BP 150/80
[2020-06-22] MEDS ORDERED: MORPHINE 2 MG/ML 1ML VIAL (J2270) IV ONE (06:15)
[2020-06-22 07:01] LABS: HEMOGLOBIN 11.6 g/dl (12.0-15.5); MEAN CORPUSCULAR HEMOGLOBIN 27.6 pg (27.0-33.0); MEAN CORPUSCULAR HGB CONC 31.4 g/dl (32.0-36.5); MEAN CORPUSCULAR VOLUME 88.1 fl (80.0-96.0)
[2020-06-22 07:02] LABS: PLATELET COUNT, AUTOMATED 58 10^3/uL (150-450)
[2020-06-22 07:24] LABS: ALBUMIN 2.5 GM/DL (3.2-5.2); ALT/SGPT 85 U/L (12-78); BILIRUBIN,TOTAL 1.6 MG/DL (0.2-1.0); BLOOD UREA NITROGEN 13 MG/DL (7-18); CARBON DIOXIDE LEVEL 25 MEQ/L (21-32); CHLORIDE LEVEL 108 MEQ/L (98-107); GLOMERULAR FILTRATION RATE > 60.0 (>51); GLUCOSE, FASTING 172 MG/DL (70-100); MAGNESIUM LEVEL 1.8 MG/DL (1.8-2.4); POTASSIUM SERUM 4.2 MEQ/L (3.5-5.1); SODIUM LEVEL 138 MEQ/L (136-145); TOTAL PROTEIN 6.4 GM/DL (6.4-8.2)
[2020-06-22 07:41] VITALS: BP 154/72
[2020-06-22] MEDS: CYANOCOBALAMIN 500 MCG TAB PO SCH (08:28)
[2020-06-22] MEDS: MAGNESIUM OXIDE 400 MG TAB (MAG-OX) PO SCH (08:28)
[2020-06-22] MEDS: FERROUS SULFATE 325MG TAB PO SCH (08:28)
[2020-06-22] MEDS: HumaLOG INSULIN (NovoLOG) PER UNIT SC SCH ×4 (08:28→21:11)
[2020-06-22] MEDS: MULTIVITAMINS/MINERALS THERAP 1 TAB PO SCH (08:28)
[2020-06-22] MEDS ORDERED: ENOXAPARIN 40MG/0.4ML SYRINGE (J1650 PER 10MG) SC SCH (09:00)
[2020-06-22 12:04] VITALS: BP 160/76
[2020-06-22] MEDS: SPIRONOLACTONE 25 MG TAB PO SCH ×2 (12:16→17:11)
[2020-06-22] MEDS: PROPRANOLOL 20 MG TAB PO SCH ×2 (12:17→21:10)
--- NOTE | 2020-06-22 12:32 | REP ---
INDICATION: ascites. COMPARISON: 03/10/2020. TECHNIQUE: Limited abdominal ultrasound is performed. FINDINGS: No ascites fluid could be visualized sonographically. IMPRESSION: No ascites fluid could be visualized sonographically in the 4 quadrants of the abdomen. If ascites fluid sampling as required we could attempt to sample using CT guidance. <Electronically signed by Nicholas Snow > 06/22/20 [id number]
[2020-06-22] MEDS ORDERED: LIDOCAINE 1% MDV 20ML VIAL As Ordered ONE ×2 (13:50→14:06)
[2020-06-22] MEDS ORDERED: SODIUM BICARBONATE 8.4% INJ 50MEQ 50 ML VIAL As Ordered ONE (13:50)
--- NOTE | 2020-06-22 17:01 | IPNPDOC ---
Text Note Date of Service The patient was seen on 06/22/20. NOTE SUBJECTIVE: Ms. Fagan was seen and examined at bedside this morning. She was lying in bed and admitted to pain in her lower abdomen bilaterally, worse in LLQ. She describes the pain as sharp and rates it 8/10. Pt admits to feeling fatigued, tired, fluctuating weight changes due to fluid accumulation, easy bruisability, edema in UE and LE bilaterally, dark yellow urine. Also reports headache this morning. Patient denies generalized itching, nausea, diarrhea, constipation, blood in stool, SOB, chest pain and dizziness/lightheadedness. Pt admits to discontinuing her diuretics approximately one week ago and has had fluid build- up in abdomen and legs since then. Pt also admits to poor diet compliance for her diabetes. OBJECTIVE: VITALS: See below GENERAL: Pt is lying in bed in no acute distress. Pt is alert, oriented and able to provide full history. HEENT: PERRL. EOM intact. Sclera anicteric. NECK: Supple, no lymphadenopathy. CV: S1S2 RRR. No murmurs, rubs or gallops. LUNGS: Clear to auscultation in all lung tom. No wheezing heard. ABDOMEN: Obese. Distended, tense abdomen. Normoactive bowel sounds. Notable erythema in LLQ and above the level of umbilicus without warmth or induration. Very tender to palpation in all lower quadrants. EXTREMITIES: Bilateral LE edema with tenderness to palpation up to mid-calf. No palmar erythema noted. PSYCH: Alert and oriented to person. Normal mood and affect. NEURO: CN II-XII are intact. No asterixis noted. ASSESSMENT/PLAN: Pt is a 60 y/o female with a PMH of cirrhosis secondary to GILL, poorly controlled IDDM Type 2 with concern for worsening ascites and loculated fluid collections seen on CT admitted for fluid drainage and infectious rule out. # Cirrhosis secondary to GILL -Pt has not been compliant with diuretic medication for the past week. -No ascites fluid could be visualized on abdominal ultrasound. -Fluid collection with CT guided needle pending, will send fluid sample for gram stain and culture to rule out infection -Follows with GI, Dr. Sepulveda, in [place]. Last ascetic tap performed in 07/23. -AST/ALT of 63/85, alkaline phos of 114, ammonia 35, albumin 2.5, total harris 1.6. -Ammonia level mildly elevated at 35, no clinical evidence of encephalopathy -Continue furosemide 40mg tablet PO BID, spironolactone 25mg PO BID, propranolol 20mg PO BID, pantoprazole sodium 40mg PO BID -Continue cyanocobalamin 500mcg PO DAILY, ferrous sulfate 325mg PO DAILY, magnesium oxide 400mg PO DAILY # Midline hernia with surrounding loculated fluid collections -Suspect loculations may just represent entrapment of ascetic fluid -Dr. Sepulveda (general surgery) consulted, suggested no inpatient treatment needed at this time -Follow up with general surgery outpatient # Abdominal wall erythema - CT abdomen concerning for possible cellulitis, clinically pt does not appear to have cellulitis. - No fever or leukocytosis to suggest infection at this time # Chronic thrombocytopenia - Secondary to GILL and low levels of thrombopoietin. - Avoid heparin # Lactic acidosis - admission lactic acid 3.0, trended down to 1.7 # Insulin Dependent diabetes -Pt reports poor diet compliance and frequent high glucose readings at home. -Most recent A1c 9.3 -Hypoglycemia protocol -Diabetic Diet -Sliding scale insulin (Lispro) while inpatient with FSBS ACHS -Continue basal insulin 25 units (levemir) at night, hold all other home medications # Endometrial hyperplasia -Continue medroxyprogesterone acetate 10mg PO QHS # Morbid obesity -BMI of 41, outpatient follow up with PCP, complicates care. DVT PROPHYLAXIS: Teds and SCDs DISPOSITION: pending clinical improvement, PT/OT eval VS,Fishbone, I+O VS, Fishbone, I+O Laboratory Tests 06/21/20 17:33 06/22/20 06:38 Vital Signs Date Time Temp Pulse Resp B/P (MAP) Pulse Ox O2 Delivery O2 Flow Rate FiO2 06/22/20 16:27 82 18 95 Room Air 06/22/20 14:06 98.4 06/22/20 12:17 160/76 I&O- Last 24 Hours up to 6 AM 06/22/20 05:59 Intake Total 500 ml Output Total 0 ml Balance 500 ml GME ATTESTATION GME ATTESTATION My faculty preceptor for this patient encounter was physically present during the encounter and was fully available. All aspects of the patient interview, examination, medical decision making process, and medical care plan development were reviewed and approved by the faculty preceptor. The faculty preceptor is aware and concurs with the plan as stated in the body of this note and will attest to such by his/her cosignature. ATTENDING NOTE I, Claire Estevez, have independently examined this patient and performed my own physical exam, as well as reviewed the documentation and edited where necessary. I have discussed in detail with the resident / student the findings and plan of treatment as documented by the resident / student and edited their note. I agree with their findings and treatment plan and have edited their documentation. I will continue to follow the patient during this hospital stay. VICENTA CHAVEZ D.O. Jun 22, 2020 17:01 CLAIRE ESTEVEZ MD Jun 22, 2020 17:24
[2020-06-22 17:08] LABS: SPEC. GRAVITY BODY FLUIDS 1.012 (NOT ESTABLISHED)
[2020-06-22] MEDS: ACETAMINOPHEN TAB 650MG DOSE (2X325MG) PO PRN (17:11)
[2020-06-22] MEDS: FUROSEMIDE 40 MG TAB PO SCH (17:11)
[2020-06-22 17:14] LABS: SOURCE, BODY FLUID ALBUMIN ASCITES; SOURCE, BODY FLUID GLUCOSE ASCITES; SOURCE, BODY FLUID TOT PROTEIN ASCITES; TOTAL PROTEIN, BODY FLUID 1.3 G/DL (NOT ESTABLISHED)
[2020-06-22 17:39] LABS: APPEARANCE, BODY FLUID HAZY (CLEAR); ASCITES FL COLOR YELLOW (COLORLESS); SOURCE, BODY FLUID ASCITES
--- NOTE | 2020-06-22 17:51 | REP ---
INDICATION: Ascites The patient has a history of A small amount of ascites on a CT abdomen and pelvis with IV contrast dated 06/21/2020. COMPARISON: None. TECHNIQUE: The procedure was performed by aBrbara Chen [facility], under the direct supervision of Dr. Snow The risks and benefits of the procedure were explained to the patient and an informed consent was obtained both verbally and written. Directly prior to the start of the procedure a formal time-out was completed in the procedure room. The largest pocket of fluid was localized in the left lower quadrant using CT guidance. The skin was prepped and draped in a sterile fashion. Ten ML of buffered lidocaine was used as a local anesthetic. An 8-Ecuadorean multi side-hole catheter was inserted using trocar technique. FINDINGS: 385 mL of yellow ascites was withdrawn and sent to the laboratory for further analysis. The catheter was removed and a sterile dressing was applied to the entry site. The patient tolerated the procedure well and there were no immediate complications. After the appropriate amount of monitored convalescence, the patient was discharged from the department. IMPRESSION: CT-guided paracentesis with removal of 385 mL of yellow ascites. <Electronically signed by Barbara Chen > 06/22/20 0209 <Electronically signed by Nicholas Snow > 06/22/20 [id number]
[2020-06-22] MEDS ORDERED: LEVEMIR (INSULIN DETEMIR) 1 UNITS/0.01ML SC SCH (18:00)
[2020-06-22 22:00] VITALS: BP 100/56
[2020-06-23 06:00] VITALS: BP 121/71
[2020-06-23 06:11] LABS: HEMATOCRIT 37.5 % (36.0-47.0); HEMOGLOBIN 11.6 g/dl (12.0-15.5); MEAN CORPUSCULAR HEMOGLOBIN 27.4 pg (27.0-33.0); MEAN CORPUSCULAR HGB CONC 30.9 g/dl (32.0-36.5); MEAN CORPUSCULAR VOLUME 88.7 fl (80.0-96.0); RED BLOOD COUNT 4.23 10^6/uL (4.00-5.40); WHITE BLOOD COUNT 6.2 10^3/uL (4.0-10.0)
[2020-06-23 06:12] LABS: PLATELET COUNT, AUTOMATED 76 10^3/uL (150-450)
[2020-06-23 06:49] LABS: ALBUMIN 2.5 GM/DL (3.2-5.2); ALT/SGPT 73 U/L (12-78); BILIRUBIN,TOTAL 1.1 MG/DL (0.2-1.0); BLOOD UREA NITROGEN 16 MG/DL (7-18); CARBON DIOXIDE LEVEL 26 MEQ/L (21-32); CHLORIDE LEVEL 107 MEQ/L (98-107); CREATININE FOR GFR 0.72 MG/DL (0.55-1.30); GLOMERULAR FILTRATION RATE > 60.0 (>51); GLUCOSE, FASTING 166 MG/DL (70-100); MAGNESIUM LEVEL 2.1 MG/DL (1.8-2.4); SODIUM LEVEL 137 MEQ/L (136-145); TOTAL PROTEIN 6.8 GM/DL (6.4-8.2)
[2020-06-23] MEDS ORDERED: cefTRIAXone SOD 1 GM in D5W MINI-BAG PLUS 50 ML IV SCH (07:15)
[2020-06-23] MEDS: HumaLOG INSULIN (NovoLOG) PER UNIT SC SCH ×2 (08:20→12:33)
[2020-06-23] MEDS: SPIRONOLACTONE 25 MG TAB PO SCH (08:20)
[2020-06-23] MEDS: FERROUS SULFATE 325MG TAB PO SCH (08:21)
[2020-06-23] MEDS: PANTOPRAZOLE 40MG TAB (PROTONIX) PO SCH (08:21)
[2020-06-23] MEDS: MULTIVITAMINS/MINERALS THERAP 1 TAB PO SCH (08:21)
[2020-06-23] MEDS: FUROSEMIDE 40 MG TAB PO SCH (08:21)
[2020-06-23] MEDS: MAGNESIUM OXIDE 400 MG TAB (MAG-OX) PO SCH (08:21)
[2020-06-23] MEDS: CYANOCOBALAMIN 500 MCG TAB PO SCH (08:21)
[2020-06-23 08:23] VITALS: BP 123/73
[2020-06-23] MEDS: PROPRANOLOL 20 MG TAB PO SCH (08:23)
[2020-06-23] MEDS: ACETAMINOPHEN TAB 650MG DOSE (2X325MG) PO PRN (08:27)
[2020-06-23] MEDS ORDERED: CIPR500T3 PO (10:28)
[2020-06-23 14:00] VITALS: BP 114/62
--- NOTE | 2020-06-23 15:25 | DS.PDOC ---
Discharge Summary General Date of Admission Jun 21, 2020 at 21:11 Date of Discharge June 23, 2020 Primary Care Physician: SHARON BONDS MD [facility] Attending Physician: CLAIRE ESTEVEZ MD Specialist/Consultants Involve: Jeffy Sepulveda Jr Discharge Summary PROCEDURES PERFORMED DURING STAY: CT needle-guided diagnostic paracentesis ADMITTING DIAGNOSES: 1. Ascites, GILL, complicated by medication noncompliance 2. Midline hernia, loculated fluid collections 3. Abdominal wall fat stranding concerning cellulitis 4. Chronic thrombocytopenia 5. Insulin-dependent diabetes 6. Morbid obesity DISHCARGE DIAGNOSES: 1. Spontaneous bacterial peritonitis 2. 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 Midline hernia with surrounding loculated fluid collections 4. Abdominal wall erythema 5. Chronic thrombocytopenia 6. Insulin Dependent diabetes 7. Endometrial hyperplasia 8. Morbid obesity COMPLICATIONS/CHIEF COMPLAINT: Spontaneous bacterial peritonitis, Cirrhosis with ascites HISTORY OF PRESENT ILLNESS: Ms. Fagan is a 60 y/o female who presented to the ED with bilateral lower abdominal pain, subjective fevers/chills without nausea or vomiting which began earlier that morning. 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 Patient follows with Dr. Sepulveda in [place] for GI care, last appointment earlier this fall. Patient shares that she has been noncompliant with her diuretics for about one week secondary to bothersome urinary frequency. She has noticed during this time, increased fluid retention, particularly in abdomen and legs. She denies any chest pain, shortness of breath or worsening dyspnea on exertion. Denies nausea, vomiting, reflux, and changes in stooling habits. In the ED, patient was found to be tachycardic with a pulse of 111. Exam findings at this time were consistent with ascites and bilateral lower panicular cellulitis. Lab workup demonstrated chronic thrombocytopenia with a platelet count of 67. Serum electrolytes and kidney function within normal limits. AST/ALT of 96/111, total and direct bilirubin of 1.9 and 0.6 respectively. Albumin of 3.1 and lactic acid of 3.0. CT scan the patients abdomen was performed which was consistent with the stigmata of cirrhosis, mesenteric edema, possible duodenitis and an anterior abdominal midline with omental fat and two loculated collections of fluid. Hospitalist team was then contacted to admit the patient for further evaluation and management. HOSPITAL COURSE: Patient was admitted to the hospital and started on all home medications. CT Abdomen/Pelvis on admission showed cirrhosis with small amount of ascites, anasarca, splenomegaly, gastric varices, subtle duodenal wall thickening with surrounding mesenteric edema, midline hernia with surround loculated fluid and possible cellulitis. Pt clinically did not appear to have cellulitis. Abdominal US on admission showed no ascites visualized so fluid was removed under CT guided needle placement. 385 mL of yellow ascites was withdrawn and sent to laboratory for further analysis. Laboratory analysis of ascites showed high WBC (2694), however microbiology showed no organisms, only WBCs. Pt was started on IV ceftriaxone for treatment of spontaneous bacterial peritonitis. Pt reported much improvement in her abdominal pain and bilateral lower extremity edema following the re-start of Lasix and CT guided paracentesis. The patient was found to be stable and safe for discharge home on oral Ciprofloxacin and follow up with Dr. Sepulveda (General Surgery) and Dr. Sepulveda (GI) within 2 weeks. Looking back in EMR, this is possibly the 2nd episode of SBP noted in the past 10 years, her SAAG is calculated at 1.9 indicating the presence of portal hypertension, and therefore consideration should be made to possibly start prophylactic antibiotics for SBP in this patient. Will defer this decision to her GI specialist. DISCHARGE MEDICATIONS: Please see below. ALLERGIES: Please see below. PHYSICAL EXAMINATION ON DISCHARGE: VITAL SIGNS: Please see below. GENERAL: Pt is sitting up on edge of bed. Pt is alert, oriented and able to provide full history. HEENT: PERRL. EOM intact. No sclera icterus noted. NECK: Supple, no lymphadenopathy. CARDIOVASCULAR EXAMINATION: S1S2 RRR, no murmurs, rubs or gallops. ABDOMINAL EXAMINATION: Obese. Soft, nontender abdomen in all 4 quadrants. Normoactive bowel sounds. No erythema appreciated. EXTREMITIES: Bilateral LE edema without tenderness to palpation up to mid-calf. No palmar erythema noted. SKIN: No rashes or wounds. NEUROLOGICAL EXAMINATION: alert and oriented x3, EOM intact. CN 2-12 intact. No asterixis. PSYCHIATRIC EXAMINATION: normal mood and affect. LABORATORY DATA: please see below. IMAGING: - CT abdomen/pelvis: Cirrhosis with small amount of ascites. Anasarca. Splenomegaly. Gastric varices. Subtle thickening of the duodenal wall with surrounding mesenteric edema. However the duodenum could not be fully evaluated secondary to lack of oral contrast. Possible duodenitis. Anterior abdominal midline hernia containing omental fat and loculated fluid. One of the loculated fluid collection measures 2.3 x 2.8 cm with subtle peripheral enhancement suggestive of superimposed infection. Overlying skin is hickened with the subcutaneous fat stranding representing cellulitis Abdomen US No ascites fluid could be visualized sonographically in the 4 quadrants of the abdomen. If ascites fluid sampling as required we could attempt to sample using CT guidance. CT guided needle placement CT-guided paracentesis with removal of 385 mL of yellow ascites. PROGNOSIS: Fair ACTIVITY: [As tolerated] DIET: Low Carbohydrate diet DISCHARGE PLAN/DISPOSITON: Home with outpatient GI and general surgery follow- up. DISCHARGE INSTRUCTIONS: 1. Follow-up with Dr. Sepulveda, General Surgeon, within 2 weeks 2. Follow up with , GI, within 2 weeks. 3. Take all your medications as prescribed. 4. Follow a low carbohydrate diet. 4. If your symptoms return or your condition worsens, please call your PCP or return to the ED for further evaluation. ITEMS TO FOLLOWUP ON OUTPATIENT: Ascites fluid cultures Abdominal hernia (Surgery) DISCHARGE CONDITION: [Stable] TIME SPENT ON DISCHARGE: Greater than 35 minutes. Vital Signs/I&Os Vital Signs Date Time Temp Pulse Resp B/P (MAP) Pulse Ox O2 Delivery O2 Flow Rate FiO2 06/23/20 14:00 97.9 71 17 114/62 (79) 94 Room Air I&O- Last 24 Hours up to 6 AM 06/23/20 06:00 Intake Total 780 ml Output Total 600 ml Balance 180 ml Laboratory Data Labs 24H Laboratory Tests 2 06/22/20 16:08: Body Fluid Source ASCITES, Body Fluid Color YELLOW, Body Fluid Appearance HAZY, Body Fluid Specific [place] 1.012, Body Fluid WBC (Auto) 2694H, Body Fluid RBC (Auto) < 2, Body Fluid Mononuclear Cells % Auto 40.6H, Fluid Polymorphonuclear Cell % Auto 59.4H, Body Fluid Glucose Source ASCITES, Body Fluid Glucose 244, Body Fluid Protein Source ASCITES, Body Fluid Total Protein 1.3, Body Fluid Albumin Source ASCITES, Body Fluid Albumin 0.6 06/22/20 16:51: Bedside Glucose (Misc Panel) 237H 06/22/20 20:55: Bedside Glucose (Misc Panel) 288H 06/23/20 05:42: Nucleated Red Blood Cells % (auto) 0.0, Immature Platelet Fraction 3.9, Anion Gap 4L, Glomerular Filtration Rate > 60.0, Calcium Level 9.0, Magnesium Level 2.1, Total Bilirubin 1.1H, Aspartate Amino Transf (AST/SGOT) 43H, Alanine Aminotransferase (ALT/SGPT) 73, Alkaline Phosphatase 111, Total Protein 6.8, Albumin 2.5L, Albumin/Globulin Ratio 0.6L 06/23/20 11:40: Bedside Glucose (Misc Panel) 272H CBC/BMP Laboratory Tests 06/23/20 05:42 FSBS Laboratory Tests Test 06/22/20 16:51 06/22/20 20:55 06/23/20 11:40 Range/Units Bedside Glucose (Misc Panel) 237 288 272 70-105 MG/DL Microbiology Microbiology 06/22/20 Acid Fast Stain, Received Pending 06/22/20 Mycobacterial Culture, Received Pending 06/22/20 Fungal Smear, Received Pending 06/22/20 Fungal Culture, Received Pending 06/22/20 Gram Stain - Final, Resulted 06/22/20 Body Fluid Culture, Resulted Pending 06/21/20 Blood Culture - Preliminary, Resulted No growth after 24 hours . All specim... 06/21/20 Blood Culture - Preliminary, Resulted No growth after 24 hours . All specim... Discharge Medications Scheduled Ciprofloxacin HCl (Ciprofloxacin HCl) 500 Mg Tablet, 500 MG PO BID Cyanocobalamin (Vitamin B-12) (Vitamin B-12) 500 Mcg Tablet, 500 MCG PO DAILY, (Reported) Dulaglutide (Trulicity) 0.75 Mg/0.5 Ml Pen.injctr, 0.75 MG SC QWEEK, (Reported) QHS: THURSDAYS Ferrous Sulfate (Ferrous Sulfate) 325 Mg Tablet, 325 MG PO DAILY, (Reported) Furosemide (Furosemide) 40 Mg Tablet, 40 MG PO BID, (Reported) Glipizide (Glipizide ER) 10 Mg Tab.er.24, 10 MG PO BID, (Reported) Insulin Glargine,Hum.rec.anlog (Basaglar Kwikpen U-100) 100 Unit/1 Ml Insuln.pen, 25 UNITS SQ QHS, (Reported) Magnesium Oxide (Magnesium) 400 Mg Capsule, 400 MG PO DAILY, (Reported) Medroxyprogesterone Acetate (Medroxyprogesterone Acetate) 10 Mg Tablet, 10 MG PO QHS, (Reported) Multivitamin with Minerals (Hair, Skin and Nails) 1 Each Tablet, 1 TAB PO DAILY, (Reported) Multivitamins (Thera M Plus Tablet) 1 Each Tablet, 1 TAB PO DAILY, (Reported) Pantoprazole Sodium (Pantoprazole Sodium) 40 Mg Tablet.dr, 40 MG PO BID, (Reported) Sitagliptin Phos/Metformin HCl (Janumet 50-1,000 mg Tablet) 1 Each Tablet, 1 TAB PO BID, (Reported) Vitamin B Complex (Vitamin B Complex) 1 Each Capsule, 1 CAP PO DAILY, (Reported) Scheduled PRN Spironolactone (Spironolactone) 50 Mg Tablet, 50 MG PO BID PRN for EDEMA, (Reported) Allergies Coded Allergies: latex (Verified Allergy, Mild, itching, 03/26/19) GME ATTESTATION GME ATTESTATION My faculty preceptor for this patient encounter was physically present during the encounter and was fully available. All aspects of the patient interview, examination, medical decision making process, and medical care plan development were reviewed and approved by the faculty preceptor. The faculty preceptor is aware and concurs with the plan as stated in the body of this note and will attest to such by his/her cosignature. ATTENDING NOTE I, Claire Estevez, have independently examined this patient and performed my own physical exam, as well as reviewed the documentation and edited where necessary. I have discussed in detail with the resident / student the findings and plan of treatment as documented by the resident / student and edited their note. I agree with their findings and treatment plan and have edited their documentation. I will continue to follow the patient during this hospital stay. Time spent on discharge 35 minutes ISREAL NINA MD Jun 23, 2020 15:25 CLAIRE ESTEVEZ MD Jun 23, 2020 15:58
== END 2020-06-23 16:05 | disposition home or self-care (01) | DRG 432 ==
LOC: M ED 16:47 → M ED INP 21:11 → ENRESERV 22:34 → M MS5PR 23:30
PROVIDERS: ADMIT Internal Medicine; ATTEND Internal Medicine
PROC: 0W9G3ZZ Drainage of Peritoneal Cavity, Percutaneous Approach (ICD-10-PCS; principal; 2020-06-22 11:30)
DX: K74.60 Unspecified cirrhosis of liver (principal); K65.2 Spontaneous bacterial peritonitis; R18.8 Other ascites; L03.311 Cellulitis of abdominal wall; Z68.41 Body mass index [BMI] 40.0-44.9, adult; E87.2 Acidosis; K76.6 Portal hypertension; I86.4 Gastric varices; E11.65 Type 2 diabetes mellitus with hyperglycemia; N85.01 Benign endometrial hyperplasia; K43.9 Ventral hernia without obstruction or gangrene; K75.81 Nonalcoholic steatohepatitis (NASH); Z90.49 Acquired absence of other specified parts of digestive tract; Z66 Do not resuscitate; Z96.652 Presence of left artificial knee joint; Z91.14 Patient's other noncompliance with medication regimen; D69.59 Other secondary thrombocytopenia; E66.01 Morbid (severe) obesity due to excess calories; Z91.11 Patient's noncompliance with dietary regimen; Z91.040 Latex allergy status; Z79.4 Long term (current) use of insulin; Z79.899 Other long term (current) drug therapy

== ENCOUNTER 2020-09-04 13:51 | Inpatient (IN) | payer MEDICARE ==
[~2020-09-04] VITALS: Ht 152.4 cm; Wt 97.5 kg
[~2020-09-04 13:51] MED LIST changes: +BASA100I SQ; +CIPR500T3 PO; +GLIP10TA18 PO; +PANT-23 PO; +PROP40TA62 PO; +SPIR50TA4 PO; +VITA500T41 PO; +VITMTA PO
--- OUTSIDE RECORDS SUMMARY | 2020-09-04 14:01 | CCD | Continuity of Care Document ---
Author Author Lotus YO DPM Organization Unknown Address [address] [place] [address] Phone [phone] Care Team Providers Care Plant Engineer Name Role Phone Uvaldo Doyle M.D. AUTM [phone] Problems Active Problems Provider Date Type 2 diabetes mellitus Onset: 00 Portal hypertension Onset: Cirrhosis of liver Onset: Social History Type Date Description Comments Sex Unknown Tobacco Use Start: Unknown Never Smoked Cigarettes Tobacco Use Start: Unknown Never Smoked Cigars Tobacco Use Start: Unknown Never Smoked A Pipe Smoking Status Reviewed: 06/10/20 Never Smoked A Pipe Tobacco Use Start: Unknown Never Used Smokeless Tobacco Tobacco Use Start: Unknown Patient has never smoked Allergies, Adverse Reactions, Alerts Description No Known Drug Allergies Medications Active Medications SIG Qnty Indications Ordering Provide r Date Bacid Tablets Unknown Furosemide 40mg Tablets 1 by mouth bid Unknown Propranolol HCL 40mg Tablets 1 tablet by mouth bid Unknown Pantoprazole Sodium 40mg Tablets D R 1 by mouth every day Unknown Ferrous Sulfate 325(65Fe) mg Table ts 1 by mouth every day Unknown Medroxyprogesterone Acetate 10mg T ablets one tab daily Unknown Ondansetron HCL 4mg Tablets take one tablet by mouth every 6 hours as needed Unknown Ibuprofen 600mg Tablets one tab PO tid prn Unknown Trulicity 0.75mg/0.5 ML Solution Pen-Inject inject 0.5ml under the skin once weekly U nknown Hydrocortisone Acetate 1% Cream Unknown Basaglar Kwikpen 100 Unit/ML Solution Pen-Inject 8 units sc daily25 units nightly Unknown Metformin HCL 1000mg Tablets TK 1 T PO bid Unknown Xifaxan 550mg Tablets Take 1 Tablet By Mouth Twice Daily Unknown Immunizations Description No Information Available Vital Signs Date Vital Result Comment 06/10/2020 8:41am Weight 204.00 lb Weight 92.534 kg Height 60 inches 5'0" BMI (Body Mass Index) 39.8 kg/m2 BSA (Body Surface Area) 1.88 m2 Results Description No Information Available Procedures Date Code Description Status 06/10/2020 16759 Debridement Nails Any Method 6 O r More Completed Medical Devices Description No Information Available Encounters Description No Information Available Assessments Date Code Description Provider 07/20/2020 E11.9 Type 2 diabetes mellitus without complications Yves Yo DPM 06/10/2020 B35.1 Tinea unguium Yves Yo DPM 06/10/2020 E11.9 Type 2 diabetes mellitus without complications Yves Yo DPM 06/10/2020 M20.42 Other hammer toe(s) (acquired), left foot Yves Yo DPM Plan of Treatment Future Appointment(s):* 08/19/2020 9:00 am - Yves Yo DPM at [facility] Podiatry 06/10/2020 - Yves Yo DPM* B35.1 Tinea unguium* Follow up:* Patient was advised to follow up in 10-12 weeks for routine nail care and to sweet pickle maker her diabetic shoes when they arrive. * Recommendations:* 1. The patient was seen and evaluated. 2. Diabetic foot exam was preformed. We discussed how diabetes can affect your feet and the importance of daily foot exams and routine foot care. We discussed how to preform these. She should moisturize her feet after she showers daily to help with the dry skin. She has diabetes and painful toenails. She does have decreased pulses with some complaint of off and on tingling in her feet. Protective and vibratory sensations are intact. She has hammertoe of her left 2nd toe. She has difficulty reaching her toenails and trimming them. She frequently cuts the skin. She would like the toenails trimmed. Debridement of all ten toenails was performed for length with a nail nipper and for thickness on the right 1st and 5th toe with a sophia. She is interested in getting diabetic shoes. We will submit paperwork to her PCP for this and if approved, we will plan to order these. She will follow up to sweet pickle maker her diabetic shoes when they arrive and in 10-12 weeks for routine nail care. In regard to her varicosities, she had questions about how to treat this. I explained to her that this is usually done by a vascular provider and if interested, she should see them or talk to her PCP about seeing them. * E11.9 Type 2 diabetes mellitus without complications * M20.42 Other hammer toe(s) (acquired), left foot Functional Status Description No Information Available Mental Status Description No Information Available Referrals Description No Information Available
--- OUTSIDE RECORDS SUMMARY | 2020-09-04 14:01 | CCD | Continuity of Care Document ---
Author Author Lotus GARCIA DPM Organization Unknown Address [address] [place] [address] Phone [phone] Care Team Providers Care Anger Control Counselor Name Role Phone Uvaldo Doyle M.D. AUTM [phone] Problems Active Problems Provider Date Type 2 diabetes mellitus Onset: 00 Portal hypertension Onset: Cirrhosis of liver Onset: Social History Type Date Description Comments Sex Unknown Tobacco Use Start: Unknown Never Smoked Cigarettes Tobacco Use Start: Unknown Never Smoked Cigars Tobacco Use Start: Unknown Never Smoked A Pipe Tobacco Use Start: Unknown Never Used Smokeless Tobacco Tobacco Use Start: Unknown Patient has never smoked Allergies, Adverse Reactions, Alerts Description No Known Drug Allergies Medications Active Medications SIG Qnty Indications Ordering Provide r Date Bacid Tablets Unknown Furosemide 40mg Tablets 1 by mouth bid Unknown Propranolol HCL 40mg Tablets 1 tablet by mouth bid Unknown Spironolactone 100mg Tablets 2 tabs PO daily Unknown Pantoprazole Sodium 40mg Tablets D R 1 by mouth every day Unknown Ferrous Sulfate 325(65Fe) mg Table ts 1 by mouth every day Unknown Medroxyprogesterone Acetate 10mg T ablets one tab daily Unknown Janumet 50-1000mg Tablets take one tablet by mouth twice a day Unknown Ondansetron HCL 4mg Tablets take one tablet by mouth every 6 hours as needed Unknown Glipizide XL 10mg Tablets ER 24HR 1 tab by mouth twice a day Unknown Ibuprofen 600mg Tablets one tab PO tid prn Unknown Trulicity 0.75mg/0.5 ML Solution Pen-Inject inject 0.5ml under the skin once weekly U nknown Hydrocortisone Acetate 1% Cream Unknown Eleni Meyerpen 100 Unit/ML Solution Pen-Inject 8 units sc daily25 units nightly Unknown Immunizations Description No Information Available Vital Signs Date Vital Result Comment 06/10/2020 8:41am Weight 204.00 lb Weight 92.534 kg Height 60 inches 5'0" BMI (Body Mass Index) 39.8 kg/m2 BSA (Body Surface Area) 1.88 m2 Results Description No Information Available Procedures Date Code Description Status 06/10/2020 15628 Debridement Nails Any Method 6 O r More Completed Medical Devices Description No Information Available Encounters Type Date Location Provider Dx Diagnosis Office Visit 06/10/2020 8:30a [facility] Podiatry Yves Garcia DPM B35.1 Tinea unguium E11.9 Type 2 diabetes mellitus wit hout complications M20.42 Other hammer toe(s) (acquire d), left foot Assessments Date Code Description Provider 06/10/2020 B35.1 Tinea unguium Yves Garcia DPM 06/10/2020 E11.9 Type 2 diabetes mellitus without complications Yves Garcia DPM 06/10/2020 M20.42 Other hammer toe(s) (acquired), left foot Yves Garcia DPM Plan of Treatment Future Appointment(s):* 08/19/2020 9:00 am - Yves Garcia DPM at [facility] Podiatry 06/10/2020 - Yves Garcia DPM* B35.1 Tinea unguium * E11.9 Type 2 diabetes mellitus without complications * M20.42 Other hammer toe(s) (acquired), left foot Functional Status Description No Information Available Mental Status Description No Information Available Referrals Description No Information Available
--- OUTSIDE RECORDS SUMMARY | 2020-09-04 14:02 | CCD ---
Author Author [facility] Organization [facility] Address Unknown Phone Unavailable Care Team Providers Care Barrow Worker Helper Name Role Phone ZHOU HAGER), Phyllis MARCOS MD Unavailable Unavailab le ZHOU (CARLI), Phyllis MARCOS MD Unavailable Unavailab le ZHOU (CARLI), Phyllis MARCOS MD Unavailable Unavailab le ZHOU (CARLI), Phyllis MARCOS MD Unavailable Unavailab le ZHOU (CARLI), Phyllis MARCOS MD Unavailable Unavailab le ZHOU (CARLI), Phyllis MARCOS MD Unavailable Unavailab le ZHOU (CARLI), Phyllis MARCOS MD Unavailable Unavailab le ZHOU (CARLI), Phyllis MARCOS MD Unavailable Unavailab le ZHOU (CARLI), Phyllis MARCOS MD Unavailable Unavailab le ZHOU (CARLI), Phyllis MARCOS MD Unavailable Unavailab le ZHOU (CARLI), Phyllis MARCOS MD Unavailable Unavailab le ZHOU (CARLI), Phyllis MARCOS MD Unavailable Unavailab le ZHOU (CARLI), Phyllis MARCOS MD Unavailable Unavailab le ZHOU (CARLI), Phyllis MARCOS MD Unavailable Unavailab le ZHOU (CARLI), Phyllis MARCOS MD Unavailable Unavailab le ZHOU (CARLI), Phyllis MARCOS MD Unavailable Unavailab le ZHOU (CARLI), Phyllis MARCOS MD Unavailable Unavailab le ZHOU (CARLI), Phyllis MARCOS MD Unavailable Unavailab le ZHOU (CARLI), Phyllis MARCOS MD Unavailable Unavailab le ZHOU (CARLI), Phyllis MARCOS MD Unavailable Unavailab le ZHOU (CARLI), Phyllis MARCOS MD Unavailable Unavailab le ZHOU (CARLI), Phyllis MARCOS MD Unavailable Unavailab le ZHOU (CARLI), Phyllis MARCOS MD Unavailable Unavailab le ZHOU (CARLI), Phyllis MARCOS MD Unavailable Unavailab le ZHOU (CARLI), Phyllis MARCOS MD Unavailable Unavailab le ZHOU (CARLI), Phyllis MARCOS MD Unavailable Unavailab le ZHOU (CARLI), Phyllis MARCOS MD Unavailable Unavailab le ZHOU (CARLI), Phyllis MARCOS MD Unavailable Unavailab le ZHOU (CARLI), Phyllis MARCOS MD Unavailable Unavailab le ZHOU (CARLI), Phyllis MARCOS MD Unavailable Unavailab le ZHOU (CARLI), Phyllis MARCOS MD Unavailable Unavailab le ZHOU (CARLI), Phyllis MARCOS MD Unavailable Unavailab le ZHOU (CARLI), Phyllis MARCOS MD Unavailable Unavailab le ZHOU (CARLI), Phyllis MARCOS MD Unavailable Unavailab le ZHOU (CARLI), hPyllis MARCOS MD Unavailable Unavailab le ZHOU (CARLI), Phyllis MARCOS MD Unavailable Unavailab le ZHOU (CARLI), Phyllis MARCOS MD Unavailable Unavailab le ZHOU (CARLI), Phyllis MARCOS MD Unavailable Unavailab le ZHOU (CARLI), Phyllis MARCOS MD Unavailable Unavailab le ZHOU (CARLI), Phyllis MARCOS MD Unavailable Unavailab le ZHOU (CARLI), Phyllis MARCOS MD Unavailable Unavailab le ZHOU (CARLI), Phyllis MARCOS MD Unavailable Unavailab le ZHOU (CARLI), Phyllis MARCOS MD Unavailable Unavailab le ZHOU (CARLI), Phyllis MARCOS MD Unavailable Unavailab le ZHOU (CARLI), Phyllis MARCOS MD Unavailable Unavailab le ZHOU (CARLI), Phyllis MARCOS MD Unavailable Unavailab le ZHOU (CARLI), Phyllis MARCOS MD Unavailable Unavailab le ZHOU (CARLI), Phyllis MARCOS MD Unavailable Unavailab le ZHOU (CARLI), Phyllis MARCOS MD Unavailable Unavailab le ZHOU (CARLI), Phyllis MARCOS MD Unavailable Unavailab le ZHOU (CARLI), Phyllis MARCOS MD Unavailable Unavailab le ZHOU (CARLI), Phyllis MARCOS MD Unavailable Unavailab le ZHOU (CARLI), Phyllis MARCOS MD Unavailable Unavailab le ZHOU (CARLI), Phyllis MARCOS MD Unavailable Unavailab le ZHOU (CARLI), Phyllis MARCOS MD Unavailable Unavailab le ZHOU (CARLI), Phyllis MARCOS MD Unavailable Unavailab le ZHOU (CARLI), Phyllis MARCOS MD Unavailable Unavailab le ZHOU (CARLI), Phyllis MARCOS MD Unavailable Unavailab le ZHOU (CARLI), Phyllis MARCOS MD Unavailable Unavailab le ZHOU (CARLI), Phyllis MARCOS MD Unavailable Unavailab le ZHOU (CARLI), Phyllis MARCOS MD Unavailable Unavailab le ZHOU (CARLI), Phyllis MARCOS MD Unavailable Unavailab le ZHOU (CARLI), Phyllis MARCOS MD Unavailable Unavailab le ZHOU (CARLI), Phyllis MARCOS MD Unavailable Unavailab le ZHOU (CARLI), Phyllis MARCOS MD Unavailable Unavailab le ZHOU (CARLI), Phyllis MARCOS MD Unavailable Unavailab le ZHOU (CARLI), Phyllis MARCOS MD Unavailable Unavailab le ZHOU (CARLI), Phyllis MARCOS MD Unavailable Unavailab le ZHOU (CARLI), Phyllis MARCOS MD Unavailable Unavailab le ZHOU (CARLI), Phyllis MARCOS MD Unavailable Unavailab le ZHOU (CARLI), Phyllis MARCOS MD Unavailable Unavailab le ZHOU (CARLI), Phyllis MARCOS MD Unavailable Unavailab le ZHOU (CARLI), Phyllis MARCOS MD Unavailable Unavailab le ZHOU (CARLI), Phyllis MARCOS MD Unavailable Unavailab le ZHOU (CARLI), Phyllis MARCOS MD Unavailable Unavailab le ZHOU (CARLI), Phyllis MARCOS MD Unavailable Unavailab le ZHOU (CARLI), Phyllis MARCOS MD Unavailable Unavailab le ZHOU (CARLI), Phyllis MARCOS MD Unavailable Unavailab le ZHOU (CARLI), Phyllis MARCOS MD Unavailable Unavailab le ZHOU (CARLI), Phyllis MARCOS MD Unavailable Unavailab le ZHOU (CARLI), Phyllis MARCOS MD Unavailable Unavailab le ZHOU (CARLI), Phyllis MARCOS MD Unavailable Unavailab le ZHOU (CARLI), Phyllis MARCOS MD Unavailable Unavailab le ZHOU (CARLI), Phyllis MARCOS MD Unavailable Unavailab le ZHOU (CARLI), Phyllis MARCOS MD Unavailable Unavailab le ZHOU (CARLI), Phyllis MARCOS MD Unavailable Unavailab le ZHOU (CARLI), Phyllis MARCOS MD Unavailable Unavailab le ZHOU (CARLI), Phyllis MARCOS MD Unavailable Unavailab le ZHOU (CARLI), Phyllis MARCOS MD Unavailable Unavailab le ZHOU (CARLI), Phyllis MARCOS MD Unavailable Unavailab le ZHOU (CARLI), Phyllis MARCOS MD Unavailable Unavailab le ZHOU (CARLI), Phyllis MARCOS MD Unavailable Unavailab le ZHOU (CARLI), Phyllis MARCOS MD Unavailable Unavailab le ZHOU (CARLI), Phyllis MARCOS MD Unavailable Unavailab le ZHOU (CARLI), Phyllis MARCOS MD Unavailable Unavailab le ZHOU (CARLI), Phyllis MARCOS MD Unavailable Unavailab le ZHOU (CARLI), Phyllis MARCOS MD Unavailable Unavailab le ZHOU (CARLI), Phyllis MARCOS MD Unavailable Unavailab le ZHOU (CARLI), Phyllis MARCOS MD Unavailable Unavailab le ZHOU (CARLI), Phyllis MARCOS MD Unavailable Unavailab le ZHOU (CARLI), Phyllis MARCOS MD Unavailable Unavailab le ZHOU (CARLI), Phyllis MARCOS MD Unavailable Unavailab le ZHOU (CARLI), Phyllis MARCOS MD Unavailable Unavailab le ZHOU (CARLI), Phyllis MARCOS MD Unavailable Unavailab le ZHOU (CARLI), Phyllis MARCOS MD Unavailable Unavailab le ZHOU (CARLI), Phyllis MARCOS MD Unavailable Unavailab le ZHOU (CARLI), Phyllis MARCOS MD Unavailable Unavailab le ZHOU (CARLI), Phyllis MARCOS MD Unavailable Unavailab le ZHOU (CARLI), Phyllis MARCOS MD Unavailable Unavailab le ZHOU (CARLI), Phyllis MARCOS MD Unavailable Unavailab le ZHOU (CARLI), Phyllis MARCOS MD Unavailable Unavailab le ZHOU (CARLI), Phyllis MARCOS MD Unavailable Unavailab le ZHOU (CARLI), Phyllis MARCOS MD Unavailable Unavailab le ZHOU (CARLI), Phyllis MARCOS MD Unavailable Unavailab le ZHOU (CARLI), Phyllis MARCOS MD Unavailable Unavailab le ZHOU (CARLI), Phyllis MARCOS MD Unavailable Unavailab le ZHOU (CARLI), Phyllis MARCOS MD Unavailable Unavailab le ZHOU (CARLI), Phyllis MACROS MD Unavailable Unavailab le ZHOU (CARLI), Phyllis MARCOS MD Unavailable Unavailab le ZHOU (CARLI), Phyllis MARCOS MD Unavailable Unavailab le ZHOU (CARLI), Phyllis MARCOS MD Unavailable Unavailab le ZHOU (CARLI), Phyllis MARCOS MD Unavailable Unavailab le ZHOU (CARLI), Phyllis MARCOS MD Unavailable Unavailab le ZHOU (CARLI), Phyllis MARCOS MD Unavailable Unavailab le ZHOU (CARLI), Phyllis MARCOS MD Unavailable Unavailab le ZHOU (CARLI), Phyllis MARCOS MD Unavailable Unavailab le ZHOU (CARLI), Phyllis MARCOS MD Unavailable Unavailab le ZHOU (CARLI), Phyllis MARCOS MD Unavailable Unavailab le ZHOU (CARLI), Phyllis MARCOS MD Unavailable Unavailab le ZHOU (CARLI), Phyllis MARCOS MD Unavailable Unavailab le ZHOU (CARLI), Phyllis MARCOS MD Unavailable Unavailab le ZHOU (CARLI), Phyllis MARCOS MD Unavailable Unavailab le ZHOU (CARLI), Phyllis MARCOS MD Unavailable Unavailab le ZHOU (CARLI), Phyllis MARCOS MD Unavailable Unavailab le ZHOU (CARLI), Phyllis MARCOS MD Unavailable Unavailab le ZHOU (CARLI), Phyllis MARCOS MD Unavailable Unavailab le ZHOU (CARLI), Phyllis MARCOS MD Unavailable Unavailab le ZHOU (CARLI), Phyllis MARCOS MD Unavailable Unavailab le ZHOU (CARLI), Phyllis MARCOS MD Unavailable Unavailab le ZHOU (CARLI), Phyllis MARCOS MD Unavailable Unavailab le ZHOU (CARLI), Phyllis MARCOS MD Unavailable Unavailab le ZHOU (CARLI), Phyllis MARCOS MD Unavailable Unavailab le ZHOU (CARLI), Phyllis MARCOS MD Unavailable Unavailab le ZHOU (CARLI), Phyllis MARCOS MD Unavailable Unavailab le ZHOU (CARLI), Phyllis MARCOS MD Unavailable Unavailab le ZHOU (CARLI), Phyllis MARCOS MD Unavailable Unavailab le ZHOU (CARLI), Phyllis MARCOS MD Unavailable Unavailab le ZHOU (CARLI), Phyllis MARCOS MD Unavailable Unavailab le ZHOU (CARLI), Phyllis MARCOS MD Unavailable Unavailab le ZHOU (CARLI), Phyllis MARCOS MD Unavailable Unavailab le ZHOU (CARLI), Phyllis MARCOS MD Unavailable Unavailab le ZHOU (CARLI), Phyllis MARCOS MD Unavailable Unavailab le ZHOU (CARLI), Phyllis MARCOS MD Unavailable Unavailab le ZHOU (CARLI), Phyllis MARCOS MD Unavailable Unavailab le ZHOU (CARLI), Phyllis MARCOS MD Unavailable Unavailab le ZHOU (CARLI), Phyllis MARCOS MD Unavailable Unavailab le ZHOU (CARLI), Phyllis MARCOS MD Unavailable Unavailab le ZHOU (CARLI), Phyllis MARCOS MD Unavailable Unavailab le ZHOU (CARLI), Phyllis MARCOS MD Unavailable Unavailab le ZHOU (CARLI), Phyllis MARCOS MD Unavailable Unavailab le ZHOU (CARLI), Phyllis MARCOS MD Unavailable Unavailab le ZHOU (CARLI), Phyllis MARCOS MD Unavailable Unavailab le ZHOU (CARLI), Phyllis MARCOS MD Unavailable Unavailab le ZHOU (CARLI), Phyllis MARCOS MD Unavailable Unavailab le ZHOU (CARLI), Phyllis MARCOS MD Unavailable Unavailab le ZHOU (CARLI), Phyllis MARCOS MD Unavailable Unavailab le ZHOU (CARLI), Phyllis MARCOS MD Unavailable Unavailab le ZHOU (CARLI), Phyllis MARCOS MD Unavailable Unavailab le ZHOU (CARLI), Phyllis MARCOS MD Unavailable Unavailab le ZHOU (CARLI), Phyllis MARCOS MD Unavailable Unavailab le ZHOU (CARLI), Phyllis MARCOS MD Unavailable Unavailab le ZHOU (CARLI), Phyllis MARCOS MD Unavailable Unavailab le ZHOU (CARLI), Phyllis MARCOS MD Unavailable Unavailab le ZHOU (CARLI), Phyllis MARCOS MD Unavailable Unavailab le ZHOU (CARLI), Phyllis MARCOS MD Unavailable Unavailab le ZHOU (CARLI), Phyllis MARCOS MD Unavailable Unavailab le ZHOU (CARLI), Phyllis MARCOS MD Unavailable Unavailab le ZHOU (CARLI), Phyllis MARCOS MD Unavailable Unavailab le ZHOU (CARLI), Phyllis MARCOS MD Unavailable Unavailab le ZHOU (CARLI), Phyllis MARCOS MD Unavailable Unavailab le ZHOU (CARLI), Phyllis MARCOS MD Unavailable Unavailab le ZHOU (CARLI), Phyllis MARCOS MD Unavailable Unavailab le ZHOU (CARLI), Phyllis MARCOS MD Unavailable Unavailab le ZHOU (CARLI), Phyllis MARCOS MD Unavailable Unavailab le GRIZZANTI, PALMIRA STAFF ANALYST Unavailable Unavailable GRIZZANTI, PALMIRA STAFF ANALYST Unavailable Unavailable GRIZZANTI, PALMIRA STAFF ANALYST Unavailable Unavailable GRIZZANTI, PALMIRA STAFF ANALYST Unavailable Unavailable GRIZZANTI, PALMIRA STAFF ANALYST Unavailable Unavailable GRIZZANTI, PALMIRA STAFF ANALYST Unavailable Unavailable GRIZZANTI, PALMIRA STAFF ANALYST Unavailable Unavailable GRIZZANTI, PALMIRA STAFF ANALYST Unavailable Unavailable GRIZZANTI, PALMIRA STAFF ANALYST Unavailable Unavailable GRIZZANTI, PALMIRA STAFF ANALYST Unavailable Unavailable GRIZZANTI, PALMIRA STAFF ANALYST Unavailable Unavailable GRIZZANTI, PALMIRA STAFF ANALYST Unavailable Unavailable GRIZZANTI, PALMIRA STAFF ANALYST Unavailable Unavailable GRIZZANTI, PALMIRA STAFF ANALYST Unavailable Unavailable GRIZZANTI, PALMRIA STAFF ANALYST Unavailable Unavailable GRIZZANTI, PALMIRA STAFF ANALYST Unavailable Unavailable GRIZZANTI, PALMIRA STAFF ANALYST Unavailable Unavailable GRIZZANTI, PALMIRA STAFF ANALYST Unavailable Unavailable GRIZZANTI, PALMIRA STAFF ANALYST Unavailable Unavailable GRIZZANTI, PALMIRA STAFF ANALYST Unavailable Unavailable GRIZZANTI, PALMIRA STAFF ANALYST Unavailable Unavailable GRIZZANTI, PALMIRA STAFF ANALYST Unavailable Unavailable GRIZZANTI, PALMIRA STAFF ANALYST Unavailable Unavailable GRIZZANTI, PALMIRA STAFF ANALYST Unavailable Unavailable GRIZZANTI, PALMIRA STAFF ANALYST Unavailable Unavailable GRIZZANTI, PALMIRA STAFF ANALYST Unavailable Unavailable GRIZZANTI, PALMIRA STAFF ANALYST Unavailable Unavailable GRIZZANTI, PALMIRA STAFF ANALYST Unavailable Unavailable GRIZZANTI, PALMIRA STAFF ANALYST Unavailable Unavailable GRIZZANTI, PALMIRA STAFF ANALYST Unavailable Unavailable GRIZZANTI, PALMIRA STAFF ANALYST Unavailable Unavailable GRIZZANTI, PALMIRA STAFF ANALYST Unavailable Unavailable GRIZZANTI, PALMIRA STAFF ANALYST Unavailable Unavailable GRIZZANTI, PALMIRA STAFF ANALYST Unavailable Unavailable GRIZZANTI, PALMIRA STAFF ANALYST Unavailable Unavailable GRIZZANTI, PLAMIRA STAFF ANALYST Unavailable Unavailable EMERTON, A SHARON MD Unavailable Unavailable EMERTON, A SHARON MD Unavailable Unavailable EMERTON, A SHARON MD Unavailable Unavailable EMERTON, A SHARON MD Unavailable Unavailable EMERTON, A SHARON MD Unavailable Unavailable EMERTON, A SHARON MD Unavailable Unavailable EMERTON, A SHARON MD Unavailable Unavailable EMERTON, A SHARON MD Unavailable Unavailable EMERTON, A SHARON MD Unavailable Unavailable EMERTON, A SHARON MD Unavailable Unavailable EMERTON, A SHARON MD Unavailable Unavailable EMERTON, A SHARON MD Unavailable Unavailable EMERTON, A SHARON MD Unavailable Unavailable EMERTON, A SHARON MD Unavailable Unavailable EMERTON, A SHARON MD Unavailable Unavailable EMERTON, A SHARON MD Unavailable Unavailable EMERTON, A SHARON MD Unavailable Unavailable EMERTON, A SHARON MD Unavailable Unavailable EMERTON, A SHARON MD Unavailable Unavailable EMERTON, A SHARON MD Unavailable Unavailable EMERTON, A SHARON MD Unavailable Unavailable EMERTON, A SHARON MD Unavailable Unavailable EMERTON, A SHARON MD Unavailable Unavailable EMERTON, A SHARON MD Unavailable Unavailable EMERTON, A SHARON MD Unavailable Unavailable EMERTON, A SHARON MD Unavailable Unavailable EMERTON, A SHARON MD Unavailable Unavailable EMERTON, A SHARON MD Unavailable Unavailable EMERTON, A SHARON MD Unavailable Unavailable EMERTON, A SHARON MD Unavailable Unavailable EMERTON, A SHARON MD Unavailable Unavailable EMERTON, A SHARON MD Unavailable Unavailable EMERTON, A SHARON MD Unavailable Unavailable EMERTON, A SHARON MD Unavailable Unavailable EMERTON, A SHARON MD Unavailable Unavailable EMERTON, A SHARON MD Unavailable Unavailable EMERTON, A SHARON MD Unavailable Unavailable EMERTON, A SHARON MD Unavailable Unavailable EMERTON, A SHARON MD Unavailable Unavailable EMERTON, A SHARON MD Unavailable Unavailable EMERTON, A SHARON MD Unavailable Unavailable EMERTON, A SHARON MD Unavailable Unavailable EMERTON, A SHARON MD Unavailable Unavailable EMERTON, A SHARON MD Unavailable Unavailable EMERTON, A SHARON MD Unavailable Unavailable EMERTON, A SHARON MD Unavailable Unavailable EMERTON, A SHARON MD Unavailable Unavailable EMERTON, A SHARON MD Unavailable Unavailable EMERTON, A SHARON MD Unavailable Unavailable EMERTON, A SHARON MD Unavailable Unavailable EMERTON, A SHARON MD Unavailable Unavailable EMERTON, A SHARON MD Unavailable Unavailable EMERTON, A SHARON MD Unavailable Unavailable EMERTON, A SHARON MD Unavailable Unavailable EMERTON, A SHARON MD Unavailable Unavailable EMERTON, A SHARON MD Unavailable Unavailable EMERTON, A SHARON MD Unavailable Unavailable EMERTON, A SHARON MD Unavailable Unavailable EMERTON, A SHARON MD Unavailable Unavailable EMERTON, A SHARON MD Unavailable Unavailable EMERTON, A SHARON MD Unavailable Unavailable EMERTON, A SHARON MD Unavailable Unavailable EMERTON, A SHARON MD Unavailable Unavailable EMERTON, A SHARON MD Unavailable Unavailable EMERTON, A SHARON MD Unavailable Unavailable EMERTON, A SHARON MD Unavailable Unavailable EMERTON, A SHARON MD Unavailable Unavailable EMERTON, A SHARON MD Unavailable Unavailable EMERTON, A SHARON MD Unavailable Unavailable EMERTON, A SHARON MD Unavailable Unavailable EMERTON, A SHARON MD Unavailable Unavailable EMERTON, A SHARON MD Unavailable Unavailable EMERTON, A SHARON MD Unavailable Unavailable EMERTON, A SHARON MD Unavailable Unavailable FORNI, R SANDRA DPM Unavailable Unavailable FORNI, R SANDRA DPM Unavailable Unavailable FORNI, R SANDRA DPM Unavailable Unavailable FORNI, R SANDRA DPM Unavailable Unavailable FORNI, R SANDRA DPM Unavailable Unavailable FORNI, R SANDRA DPM Unavailable Unavailable FORNI, R SANDRA DPM Unavailable Unavailable EMERTON, A SHARON MD Unavailable Unavailable EMERTON, A SHARON MD Unavailable Unavailable EMERTON, A SHARON MD Unavailable Unavailable EMERTON, A SHARON MD Unavailable Unavailable EMERTON, A SHARON MD Unavailable Unavailable EMERTON, A SHARON MD Unavailable Unavailable EMERTON, A SHARON MD Unavailable Unavailable EMERTON, A SHARON MD Unavailable Unavailable EMERTON, A SHARON MD Unavailable Unavailable EMERTON, A SHARON MD Unavailable Unavailable EMERTON, A SHARON MD Unavailable Unavailable EMERTON, A SHARON MD Unavailable Unavailable EMERTON, A SHARON MD Unavailable Unavailable EMERTON, A SHARON MD Unavailable Unavailable EMERTON, A SHARON MD Unavailable Unavailable EMERTON, A SHARON MD Unavailable Unavailable EMERTON, A SHARON MD Unavailable Unavailable EMERTON, A SHARON MD Unavailable Unavailable EMERTON, A SHARON MD Unavailable Unavailable EMERTON, A SHARON MD Unavailable Unavailable EMERTON, A SHARON MD Unavailable Unavailable EMERTON, A SHARON MD Unavailable Unavailable EMERTON, A SHARON MD Unavailable Unavailable EMERTON, A SHARON MD Unavailable Unavailable EMERTON, A SHARON MD Unavailable Unavailable EMERTON, A SHARON MD Unavailable Unavailable EMERTON, A SHARON MD Unavailable Unavailable EMERTON, A SHARON MD Unavailable Unavailable EMERTON, A SHARON MD Unavailable Unavailable EMERTON, A SHARON MD Unavailable Unavailable EMERTON, A SHARON MD Unavailable Unavailable EMERTON, A SHARON MD Unavailable Unavailable EMERTON, A SHARON MD Unavailable Unavailable EMERTON, A SHARON MD Unavailable Unavailable EMERTON, A SHARON MD Unavailable Unavailable EMERTON, A SHARON MD Unavailable Unavailable EMERTON, A SHARON MD Unavailable Unavailable EMERTON, A SHARON MD Unavailable Unavailable EMERTON, A SHARON MD Unavailable Unavailable EMERTON, A SHARON MD Unavailable Unavailable EMERTON, A SHARON MD Unavailable Unavailable EMERTON, A SHARON MD Unavailable Unavailable EMERTON, A SHARON MD Unavailable Unavailable EMERTON, A SHARON MD Unavailable Unavailable EMERTON, A SHARON MD Unavailable Unavailable EMERTON, A SHARON MD Unavailable Unavailable EMERTON, A SHARON MD Unavailable Unavailable EMERTON, A SHARON MD Unavailable Unavailable EMERTON, A SHARON MD Unavailable Unavailable EMERTON, A SHARON MD Unavailable Unavailable EMERTON, A SHARON MD Unavailable Unavailable EMERTON, A SHARON MD Unavailable Unavailable EMERTON, A SHARON MD Unavailable Unavailable EMERTON, A SHARON MD Unavailable Unavailable EMERTON, A SHARON MD Unavailable Unavailable EMERTON, A SHARON MD Unavailable Unavailable EMERTON, A SHARON MD Unavailable Unavailable EMERTON, A SHARON MD Unavailable Unavailable EMERTON, A SHARON MD Unavailable Unavailable EMERTON, A SHARON MD Unavailable Unavailable EMERTON, A SHARON MD Unavailable Unavailable EMERTON, A SHARON MD Unavailable Unavailable EMERTON, Haley HERRERA MD Unavailable Unavailable EMERTON, Haley HERRERA MD Unavailable Unavailable EMERTON, Haley HERRERA MD Unavailable Unavailable EMERTON, Haley HERRERA MD Unavailable Unavailable EMERTON, Haley HERRERA MD Unavailable Unavailable EMERTON, Haley HERRERA MD Unavailable Unavailable EMERTON, Haley HERRERA MD Unavailable Unavailable EMERTON, Haley HERRERA MD Unavailable Unavailable EMERTON, Haley HERRERA MD Unavailable Unavailable EMERTON, Haley HERRERA MD Unavailable Unavailable EMERTON, Haley HERRERA MD Unavailable Unavailable EMERTON, Haley HERRERA MD Unavailable Unavailable ZHOU (CARLI), Phyllis MARCOS MD Unavailable Unavailab le ZHOU (CARLI), Phyllis MARCOS MD Unavailable Unavailab le ZHOU (CARLI), Phyllis MARCOS MD Unavailable Unavailab le ZHOU (CARLI), Phyllis MARCOS MD Unavailable Unavailab le ZHOU (CARLI), Phyllis MARCOS MD Unavailable Unavailab le HZOU (CARLI), Phyllis MARCOS MD Unavailable Unavailab le ZHOU (CARLI), Phyllis MARCOS MD Unavailable Unavailab le ZHOU (CARLI), Phyllis MARCOS MD Unavailable Unavailab le ZHOU (CARLI), Phyllis MARCOS MD Unavailable Unavailab le ZHOU (CARLI), Phyllis MARCOS MD Unavailable Unavailab le ZHOU (CARLI), Phyllis MARCOS MD Unavailable Unavailab le ZHOU (CARLI), Phyllis MARCOS MD Unavailable Unavailab le ZHOU (CARLI), Phyllis MARCOS MD Unavailable Unavailab le ZHOU (CARLI), Phyllis MARCOS MD Unavailable Unavailab le ZHOU (CARLI), Phyllis MARCOS MD Unavailable Unavailab le ZHOU (CARLI), Phyllis MARCOS MD Unavailable Unavailab le ZHOU (CARLI), Phyllis MARCOS MD Unavailable Unavailab le ZHOU (CARLI), Phyllis MARCOS MD Unavailable Unavailab le ZHOU (CARLI), Phyllis MARCOS MD Unavailable Unavailab le ZHOU (CARLI), Phyllis MARCOS MD Unavailable Unavailab le ZHOU (CARLI), Phyllis MARCOS MD Unavailable Unavailab le ZHOU (CARLI), Phyllis MARCOS MD Unavailable Unavailab le ZHOU (CARLI), Phyllis MARCOS MD Unavailable Unavailab le ZHOU (CARLI), Phyllis MARCOS MD Unavailable Unavailab le ZHOU (CARLI), Phyllis MARCOS MD Unavailable Unavailab le ZHOU (CARLI), Phyllis MARCOS MD Unavailable Unavailab le ZHOU (CARLI), Phyllis MARCOS MD Unavailable Unavailab le ZHOU (CARLI), Phyllis MARCOS MD Unavailable Unavailab le ZHOU (CARLI), Phyllis MARCOS MD Unavailable Unavailab le ZHOU (CARLI), Phyllis MARCOS MD Unavailable Unavailab le ZHOU (CARLI), Phyllis MARCOS MD Unavailable Unavailab le ZHOU (CARLI), Phyllis MARCOS MD Unavailable Unavailab le ZHOU (CARLI), Phyllis MARCOS MD Unavailable Unavailab le ZHOU (CARLI), Phyllis MARCOS MD Unavailable Unavailab le ZHOU (CARLI), Phyllis MARCOS MD Unavailable Unavailab le ZHOU (CARLI), Phyllis MARCOS MD Unavailable Unavailab le ZHOU (CARLI), Phyllis MARCOS MD Unavailable Unavailab le ZHOU (CARLI), Phyllis MARCOS MD Unavailable Unavailab le ZHOU (CARLI), Phyllis MARCOS MD Unavailable Unavailab le ZHOU (CARLI), Phyllis MARCOS MD Unavailable Unavailab le ZHOU (CARLI), Phyllis MARCOS MD Unavailable Unavailab le ZHOU (CARLI), Phyllis MARCOS MD Unavailable Unavailab le ZHOU (CARLI), Phyllis MARCOS MD Unavailable Unavailab le ZHOU (CARLI), Phyllis MARCOS MD Unavailable Unavailab le ZHOU (CARLI), Phyllis MARCOS MD Unavailable Unavailab le ZHOU (CARLI), Phyllis MARCOS MD Unavailable Unavailab le ZHOU (CARLI), Phyllis MARCOS MD Unavailable Unavailab le ZHOU (CARLI), Phyllis MARCOS MD Unavailable Unavailab le ZHOU (CARLI), Phyllis MARCOS MD Unavailable Unavailab le ZHOU (CARLI), Phyllis MARCOS MD Unavailable Unavailab le ZHOU (CARLI), Phyllis MARCOS MD Unavailable Unavailab le ZHOU (CARLI), Phyllis MARCOS MD Unavailable Unavailab le ZHOU (CARLI), Phyllis MARCOS MD Unavailable Unavailab le ZHOU (CARLI), Phyllis MARCOS MD Unavailable Unavailab le ZHOU (CARLI), Phyllis MARCOS MD Unavailable Unavailab le ZHOU (CARLI), Phyllis MARCOS MD Unavailable Unavailab le ZHOU (CARLI), Phyllis MARCOS MD Unavailable Unavailab le ZHOU (CARLI), Phyllis MARCOS MD Unavailable Unavailab le ZHOU (CARLI), Phyllis MARCOS MD Unavailable Unavailab le ZHOU (CARLI), Phyllis MARCOS MD Unavailable Unavailab le ZHOU (CARLI), Phyllis MARCOS MD Unavailable Unavailab le ZHOU (CARLI), Phyllis MARCOS MD Unavailable Unavailab le ZHOU (CARLI), Phyllis MARCOS MD Unavailable Unavailab le ZHOU (CARLI), Phyllis MARCOS MD Unavailable Unavailab le ZHOU (CARLI), Phyllis MARCOS MD Unavailable Unavailab le ZHOU (CARLI), Phyllis MARCOS MD Unavailable Unavailab le ZHOU (CARLI), Phyllis MARCOS MD Unavailable Unavailab le ZHOU (CARLI), Phyllis MARCOS MD Unavailable Unavailab le ZHOU (CARLI), Phyllis MARCOS MD Unavailable Unavailab le ZHOU (CARLI), Phyllis MARCOS MD Unavailable Unavailab le ZHOU (CARLI), Phyllis MARCOS MD Unavailable Unavailab le ZHOU (CARLI), Phyllis MARCOS MD Unavailable Unavailab le ZHOU (CARLI), Phyllis MARCOS MD Unavailable Unavailab le ZHOU (CARLI), Phyllis MARCOS MD Unavailable [facility] ([facility]), Phyllis MARCOS MD Unavailable [facility] ([facility]), Phyllis MARCOS MD Unavailable [facility] ([facility]), Phyllis MARCOS MD Unavailable [facility] ([facility]), Phyllis MARCOS MD Unavailable [facility] ([facility]), Phyllis MARCOS MD Unavailable [facility] (CARLI), Phyllis MARCOS MD Unavailable [facility] ([facility]), Phyllis MARCOS MD Unavailable [facility] (CARLI), Phyllis MARCOS MD Unavailable [facility] (CARLI), Phyllis MARCOS MD Unavailable [facility] (CARLI), Phyllis MARCOS MD Unavailable [facility] (CAR[facility]), Phyllis MARCOS MD Unavailable [facility] (CARLI), Phyllis MARCOS MD Unavailable [facility] (CARLI), Phyllis MARCOS MD Unavailable [facility] ([facility]LI), Phyllis MARCOS MD Unavailable [facility] ([facility]), Phyllis MARCOS MD Unavailable [facility] ([facility]), Phyllis MARCOS MD Unavailable [facility] ([facility]), Phyllis MAROCS MD Unavailable [facility] ([facility]), Phyllis MARCOS MD Unavailable [facility], R SANDRA DPM Unavailable Unavailable FORNI, R SANDRA DPM Unavailable Unavailable FORNI, R SANDRA DPM Unavailable Unavailable FORNI, R SANDRA DPM Unavailable Unavailable FORNI, R SANDRA DPM Unavailable Unavailable FORNI, R SANDRA DPM Unavailable Unavailable FORNI, R SANDRA DPM Unavailable Unavailable Re-disclosure Warning The records that you are about to access may contain information from federally-assisted alcohol or drug abuse programs. If such information is present, then the following federally mandated warning applies: This information has been disclosed to you from records protected by federal confidentiality rules (42 CFR part 2). The federal rules prohibit you from making any further disclosure of this information unless further disclosure is expressly permitted by the written consent of the person to whom it pertains or as otherwise permitted by 42 CFR part 2. A general authorization for the release of medical or other information is NOT sufficient for this purpose. The Federal rules restrict any use of the information to criminally investigate or prosecute any alcohol or drug abuse patient.The records that you are about to access may contain highly sensitive health information, the redisclosure of which is protected by Article 27-F of the [place] [employer] law. If you continue you may have access to information: Regarding HIV / AIDS; Provided by facilities licensed or operated by the [place] Office of Mental Health; or Provided by the [place] Office for People With Developmental Disabilities. If such information is present, then the following [place] mandated warning applies: This information has been disclosed to you from confidential records which are protected by state law. State law prohibits you from making any further disclosure of this information without the specific written consent of the person to whom it pertains, or as otherwise permitted by law. Any unauthorized further disclosure in violation of state law may result in a fine or detention sentence or both. A general authorization for the release of medical or other information is NOT sufficient authorization for further disc losure. Family History Family Member Name Family Member Gender Family Member Status Date o f Status Description Data Source(s) Unknown Unknown Problem [facility] ([facility]) Unknown Female Problem MEDENT ([facility]) Unknown Female Problem MEDENT ([facility]) Encounters Encounter Providers Location Date Indications Data Source(s ) Outpatient Attender: SANDRA YO DPMConsultant: SHARON BONDS MD 07/20/2020 10:59:00 AM EST - 07/20/2020 10:59:00 AM EST [facility] Attender: PRITI EPPERSON ([place]) MDReferrer: Rudy BONDS MD 06/28/2020 08:20:11 PM EST [facility] Attender: PRITI EPPERSON ([place]) MDReferrer: Rudy BONDS MD 06/28/2020 08:20:11 PM EST [facility] Attender: SANDRA YO DPMConsultant: SHARON BONDS MD 06/10/2020 08:30:00 AM EST - 06/10/2020 08:30:00 AM EST [facility] Outpatient Attender: SANDRA YO [facility] 06/10/2020 0 7:30:00 AM EST MEDENT (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 [address] [place] [address] 05/20/2020 12:00:00 AM EDT eCW1 ([facility]) [facility] [address] [place] [address] 04/15/2020 12:00:00 AM EDT eCW1 ([facility]) Attender: PRITI EPPERSON ([place]) MDReferrer: Rudy BONDS MD 03/08/2020 08:20:08 PM EDT [facility] Attender: PRITI EPPERSON ([place]) MDReferrer: Rudy BONDS MD 03/08/2020 08:20:08 PM EDT [facility] Attender: PRITI EPPERSON ([place]) MDReferrer: Rudy BONDS MD 03/08/2020 08:20:08 PM EDT [facility] Unknown [address] [facility] [address] 01/25/2020 12:00:00 AM EDT eCW1 ([facility]) [facility] [address] [place] [address] 12/23/2019 12:00:00 AM EDT eCW1 ([facility]) Attender: PRITI EPPERSON ([place]) MDReferrer: Rudy BONDS MD 11/18/2019 08:20:04 PM EDT [facility] Referrer: PRITI EPPERSON MD ([place]) 0 11:08:00 AM EDT [facility] [address] [place] [address] 09/18/2019 12:00:00 AM EST eCW1 ([facility]) [facility] [address] [place] [address] 09/08/2019 12:00:00 AM EST eCW1 ([facility]) [facility] [address] [place] [address] 08/17/2019 12:00:00 AM EST eCW1 ([facility]) [facility] [address] [place] [address] 08/11/2019 12:00:00 AM EST eCW1 ([facility]) Attender: PRITI EPPERSON ([place]) MDReferrer: Rudy BONDS MD 07/14/2019 08:19:12 PM EST [facility] Attender: PRITI EPPERSON ([place]) MDReferrer: Rudy BONDS MD 07/14/2019 08:19:12 PM EST [facility] and Breast Care [address] [place] [address] 07/08/2019 12:00:00 AM EST eCW1 ([facility]) Outpatient Attender: PRITI EPPERSON ([place]) MDConsultant: SHARON BONDS MD 07/07/2019 11:28:00 AM EST - 07/07/2019 12:28:00 PM [facility] Outpatient Attender: PALMIRA TORRE NPConsultant: SHARON SHAH MD 07/07/2019 11:24:00 AM EST - 07/07/2019 12:24:00 PM [facility] Medications Medication Brand Name Start Date Product Form Dose Route Admi nistrative Instructions Pharmacy Instructions Status Indications Reaction Description Data Source(s) medroxyprogesterone acetate 10 MG Oral Tablet [Provera ] Provera 10 MG Provera 10 MG 12/27/2019 12:00:00 AM EDT 1.0 {tablet_with_food} active Provera 10 MG [facility] medroxyprogesterone acetate 10 MG Oral Tablet [Provera ] Provera 10 MG Provera 10 MG 12/27/2019 12:00:00 AM EDT active 1 tablet with food [facility]) medroxyprogesterone acetate 10 MG Oral Tablet [Provera ] Provera 10 MG Provera 10 MG 12/27/2019 12:00:00 AM EDT 1.0 {tablet_with_food} active Provera 10 MG [facility]) Insurance Providers Payer name Policy type / Coverage type Policy ID Covered alliance party ID Covered alliance party's relationship to justice Policy Justice Plan Information MEDICARE [id number] SP [id number] AARP HEALTH CARE OPTIONS [id number] SP [id number] [facility] COMMUN PLAN [id number] 18 [id number] MEDICARE PART A [facility] [id number] 18 [id number] MEDICARE C [id number] S [id number] AARP O [id number] S [id number] Medicare Part B [facility] [id number] 0 [id number] [facility] [id number] 0 [id number] Aarp Health Care Option [id number] 0 [id number] YASH CARE EXCHANGE [id number] 0 [id number] [place] [id number] SP [id number] [facility] [id number] SP [id number] MEDICARE PART A [facility] UNAVAILABLE 18 UNAVAILABLE AARP HEALTH CARE OPTIONS [id number] SP [id number] MEDICARE [id number] SP [id number] [facility] MEDICARE [facility] O [id number] S [id number] MEDICARE PART A -O/P [id number] 18 [id number] AARP HEALTH CARE OPTIONS -O/P [id number] 18 [id number] UN MEDICARE COMPLETE - O/P [id number] 18 [id number] MEDICARE [id number] SP [id number] A MEDICARE PART A -O/P [id number] 18 [id number] [facility]ICHO[facility] XIX O [id number] 18 [id number] [facility] Part B [id number] Self [id number] Aarp Medigap Part B [id number] Self [id number] Medicare [facility] Medicare Primary [id number] Self [id number] ANSI-Medicare Part B [id number] ANSI-Commercial [id number] ANSI-Commercial [id number] ANSI-Medicare Part B [id number] ANSI-Commercial [id number] ANSI-Medicare Part B [id number] ANSI-Commercial [id number] ANSI-Medicare Part B [id number] ANSI-Medicare Part B [id number] ANSI-Commercial [id number] ANSI-Commercial [id number] ANSI-Medicare Part B [id number] ANSI-Medicare Part B [id number] ANSI-Commercial [id number] AAR HEALTH CARE OPTIONS [id number] SP [id number] MEDICARE [id number] SP [id number] A UNHC COMMUNITY PLAN MCDO [id number] SP [id number] MEDICARE C [id number] S [id number] A Medicare Part B [facility] [id number] 0 [id number] [facility] COMMUNITY PLAN [id number] UNITED HEALTHCARE -O/P [id number] 18 [id number] [facility] COMMUNITY PLAN MEDICAID [id number] 0 [id number] MEDICARE -O/P [id number] 18 [id number] [facility] [id number] SP [id number] UNHC COMMUNITY PLAN MCDHMO [id number] SP [id number] UNITED HEALTHCARE(MCAID) O [id number] S [id number] UNITED HEALTHCARE(MCAID) O [id number] S [id number] BS Reese Hmo Blue Option Medigap Part B Self [facility] Community Plan Commercial Self YASH [id number] SP [id number] AMERICHOICE BY [facility] COMMUNITY PLAN [id number] 0 [id number] AMERICHOICE BY [facility] COMMUNITY PLAN [id number] 0 [id number] [facility] P UNAVAILABLE C UNAVAILABLE [facility](MCAID) P [id number] S [id number] CANCER SERVICE PROGRAM-O/P UNAVAILABLE UNAVAILABLE BLUE CROSS BARR PLAN [id number] SP [id number] BLUE CROSS BLUE SHIELD-O/P [id number] 18 [id number] O BLUE [id number] SP [id number] Problems, Conditions, and Diagnoses Code Display Name Description Problem Type Effective Dates Data Source(s) M2042 Other hammer toe(s) (acquired), left melani t Other hammer toe(s) (acquired), left foot Diagnosis 06/10/2020 08:30:00 AM [facility] B351 Tinea unguium Tinea unguium Diagnosis 06/10/2020 08:30:00 AM [facility] E119 Type 2 diabetes mellitus without complic ations Type 2 diabetes mellitus without complications Diagnosis 06/10/2020 08:30:00 AM [facility] R188 Other ascites Other ascites Diagnosis 07/07/2019 11:28:00 AM [facility] K740 Hepatic fibrosis Hepatic fibrosis Diagnosis 07/07/2019 11 :28:00 AM [facility] K7460 Unspecified cirrhosis of liver Unspecified cirrhosis o f liver Diagnosis 07/07/2019 11:24:00 AM [facility] Surgeries/Procedures Procedure Description Date Indications Data Source(s) Debridement Nails Any Method 6 Or More 06/10/2020 12:0 0:00 AM EST MEDENT ([facility]) Results ID Date Data Source [id number] 06/28/2020 09:45:00 AM EST [facility] Name Value Range Interpretation Code Description Data Jesusita rce(s) Supporting Document(s) Follow Up [facility] WALGLe4tCgVPFsMqKSQbHbtFROmnFDgdVQMeR4O2BNzgTo6QCQgwnhGkSZYaGj6+PEGrPM5qok7hDHTx gMy [file] gH/porcelain enamel repairer+OfOseXJrWf5PT5Q0b+iVTUG1ao4IiDRGgxl8DILEhYwTiEUmJO+64ZWs1OxpiFl8gpA3MUPjl [file] Electrician Supervisor/Navarro+Vk4n5/2sEEUVzHJZbsCxSY+cpvXGKvoGoVG2 [file] 3ngdtpa5mgdnZcizvjKjd/jykNuthh/Mgsn3alLAZF rgD2+EsmMsb2JW6f6zGj07B246rzvj0+U3Ff4Khv9MeUxEgs+M8jNjRiQFleCO5t9xeEDzgdPT0qm8vy 49egsFfQQvMk7IdDCHXOCBUpusWmKkaEOzwd4fgIRQyBFFNL/xO7yYG+A/WQUUI7GIGfvwk0+tlcF7Gu ZtyB97Qkz320bj2dG3nbjm0AaQNsmtQolepzROK99F q+H2PTZ5Q3TDBWaNAUnavEwGwbjTwoBq+CGsw3rs+80lMZyoX61uw1/q3+b1cDD0q6rdEGDlAr+QJdCU kwDe8566N0H8vkbKzHIddZG5eweCCtZhAHCVK9D6OE6B3UtyFdWrUd7dozP7poPJqPHyV2mzQtvQMLOO gU2IzQjW1sdK4PV3Z7H39w8QDcQpGOy5McnwOuqL4K 5LfiCUJ0BWfyQB8ui1v0HpU0DDK37zV8zl3G/N7MtOOYrP3E0NorlXMfykGEWsL+wCKOf5t23xFeYjZd 34GCDdCb1Zf5bUW7vpKZhQ0lmEwEAlxTvZejt+eFzZZM/aokUWJU4J+znHWjOihiARtAqtUdOCddRcNu UtlwmSVsQYvLhpkPINXdDXSID+Ywu11X3Qeel7K/82 CCvTALjfwCjoOf6Zcl1s7s8hnnXbaqliY5NsUiHLBhFl7cob9r8nKg+FBEVh24MZpWNYsqlZreFQjff6 YjdDmBem07sQ8xBm+E1d2s/jPtIHs6wJquAFU59G5HFX0Xe7R6lItFO0VGTKFOrZnh2/qsey/nBpz9Nb SWczvwamocjFy4EBWSHLdXfrSDdMkrBkScwMe3cTOL oeEZRyXotk2frFYzKIHHrixTE4hw4exNrxCQBAOThd9y/+9RFPaHXh3HkYRQOFEwQnje73HspCGHjoAV [facility]6+IX/z6ZfMDeU9VSo4qMLatSnTfazLQpH/ztGbJNdmA+TFRPoPUvS5FnKUvBN9O5MMtrv9RY1ee [file] sgNYe+JLbEKV/dD4JOmooINHg+egHqg7Kz/3sjavWzAFbh79OkGIIe4XdMv9Zaf2cyj/RvO551tC+public policy mediator [file] 6D77EbtOz9b2RVWpqEIcBdQkzjBYxX38Rj9pUSbeCrKMgnPpvZKMIjnh8hkkilK/Raupbazv+6Te+Luis M [file] zpKYh839Vaa7s2J58YFL+Carlos Alberto+iNtlYgOU/iUk+MHtE [file] Maria Esther+668yqmKI93Kzr6GADMT61Bf67U99QVc7yRBJNYCglShht45dSDs6yRQoI8mcbF9rpfv+Rr/AX7Rm [file] Deer Farm Worker/hFEbl6/ketH+5ajkmSdYU6Jj1mSUJPqjyg1eNjDTX0CfD7jQPBqHmZYs+oTtvV02PJDo3tqufwW1 bnwcUrO29UjNsS5l5UuN4J6mJ0U24lHaUKF4TiA35sbFnQGWdO6wlxtYuRto6XsN0lI0Yc4C3a9ngZNY xkYrGiiIh9haIGy20G8nuUIAEGrvPXe8dQNa1twr1C u8R6U3OEwRNwyUepDt1Kwz7oPwHAdEu1i4ohlMMiDPgmN+YYCIRv+Ixbl8LnSq57/ytKLaDYw4hRNa6H iMbLehc/9pvz8MmARUZ5WlWjbt9zcY0Gu6B0xO3qyoy/bvMaMe209JJaWunP/WHHGsx+v8PBttyNzPbX cMfgmRAiW3b7EsX8a7/BznXt1l668wpZ+xf9a2j9km yNL76lKO6YxfZWnfUi9fIcNGjPU9Qsg/Yn5k94FZDs2XRk9L22RWs07X5N2UCRBkwgV6tCo59ARgxBdd Ie3qHn5T9gZ2UYW1F/PZyybHVw6PJihg8XHIRV5p3M11D6H32inEbihsqZhrB9brPeebsAA6ibbIW2E1 MradAIMAfjufmLf8ZBFCinco9MURDu4DQFZAV/t9C3 [file] It+azkIAHc5y2Xnn+isvNO3pu3U713aVF6zvbt [file] eZHFy8UZnN+LzEE/rjKlg4dSw35uQ63y1zQ8F8dBB7adFbtsaHLTUq0NvaRRhg8ll9j/Juan Carlos+m/oHAt/4 [file] GGxdKYheGY6FPg7r7sePMnp+jHsRkJniuhnIYu/Lisseth BfVDJrpwum5y3GRZfJns/KNrL/lDEuTRWOh7Bt2XBg36Rn8AFvY00yCabfino/wtLzdxBXOfob4HS+iJ NsxSTuIJoCE9g060QcEewi1go8BE3GN696U4vdykzDKFiDnputcuwgm/pdGSsinCLNGUZHKbapmgPxhj JghmcsM5Wb65GGU6IK+/pNPxvORxxjuW9+rX7B9ciB dEfsHAsxKLdrYrqA2VYy9gu/Hr8BTLkwUyEE9z5k475UDJucA3kI3pIc4lKqmUjiYAShJwrYrmiTLxEp csre+4n39v+M3lw/St/wd3TdLO/mBI3UGEaDX1pcyfrbaDasRZcQK5TssH1/XYfhoGEWCmTrwZy0a26O vGsXW//wloRXjb6GcS39DEwaQQ54sAaUSwfIFZPJrC /O8gg3+atT2jVcb1B/h36jj+nSqz1/pEgv8U+aZ4+mn+nvYr413yOi4+5v+txoDR/3MMKiIeTwULdKKZ /akfAPz3caTJUleVsMrv8QISII+lWtr6gfL0jKi86G+L6PSyAL82y6prhlLCdfNk1nzG+j+rhZ6PVB2h 0b/8WWGYcOi/LzLQ2kPg829VZOMeogc+FpZpUtR7tG C94dKXC9+7suPFHotd/w5sOSV72GIs/q3beg2fRSK/AJo0TIV84qpNfXv1SJMspKf/0rR/sShwSZwPP2 1hh2lWo7He096hkZjpzmIkA37Okho5ekHjzEA/34A8qkO9T91wzF1sBNkQaetZXs7Jywxw8avqzTOpYw oEQkcq5Mz0/xvM0AgkVZJVosQXHlEUVtlZ9NUKBg01 q4r+8Be6tXGL0D/hJ2X/C/mucePmxQm0KQDeZAuuzxGRUYn/V/7/a5xMHlaWFic/VreTNee7/fqSQyvl n/1k9g3K6981TOqUvK3zgWNBoKyeUerUjF5+NjGd2IBY0kyP26KRFtieB/5qOweZ9S7vGxrlAd7oTWrg C3QAqGNcfZHFODu//STAFF ANALYST/tI7/nwNLA/88uLPy6eGHg9 [file] 5VzI57O3sg+NQeMlxIRmRw81JMYVzth0HZb8xU+torsten uIpjwRJrUVta/Bt3uyAaJgq//23jhA6MFbcDIWju00yM7L70D5238AbSPBxcwM59rqORbUHr0hMEujeY OYHG7uKBLbq1i+kVDV1y3VOoiRuX1239mMOUQPGPmxzIKT9JHGQDeI5ybq8EaS5yinoAL0bdWdCaiK5S qGvewajo8uIaGMQOEAUXxm2jK3k6WN2r4S9fi1vRwi GnuxxGaonFT7Yr1bffHl/XrK8NCqaV1viSkQgpuCufZ4WHYD6hTkxD44F8iw/GETRbJ+mxz39W6c/as400 programmer analyst [file] aT1RtK0O4rVB59g8fduv/OjLItnWvnPqQMBur2paUST+sAG5VF9LSyM3WyEFyqBzVyiSbUhWLwF++Juan Carlos [file] Tm36VOiE8qgJ2QUAeX9xyvu/Ylp9NUqwFpu0HXkCcO8LgFEcw0Sjp/mqtrAuq6TD3eCkj0XWO9fF/[facility] [file] ancillary [file] NxG7tvBc1/K/maria luisa/wLOCrO8aGPQHh8qPdkyyBN3iDnnNnm38WQlUWCdk3c5nqI2NnZFHItuUVn8b1Eub [file] ljfOuyY0x/Ztoxsnoy2/aSJ77j9sncHmD4g+iCPlg6Jn+JyO5FVDl/ornamental plasterer helper+VVLr3Q//nwSprSlARyOtSpV [file] CiXM8ypj4UThS4PRP7rZJaHm0HDRHvFgP6TM3YPNPBU9W= ID Date Data Source Urinalysis, no micro 05/20/2020 01:47:03 PM EDT eCW1 ([facility]) Name Value Range Interpretation Code Description Data Jesusita rce(s) Supporting Document(s) n Leukocyte eCW1 ([facility]) n Nitrate eCW1 ([facility]) 1.010 Spec gravity eCW1 ([facility]) 7 pH eCW1 ([facility]) n Glucose eCW1 ([facility]) n Ketones eCW1 ([facility]) n Protein eCW1 ([facility]) n Bilirubin eCW1 ([facility]) yes Internal QC Acceptable (Y/N) e [facility] n Urobili eCW1 ([facility]) n Blood eCW1 ([facility]) ID Date Data Source [id number] 03/08/2020 01:45:00 PM EDT [facility] Name Value Range Interpretation Code Description Data Jesusita rce(s) Supporting Document(s) Follow Up [facility] QEPNWi7fKlYSSmCyOTUmLxaFDJzoFYabHWVnZ3R8LFzuDj9QWDuffwTsLRKcDy8+MVUaXY1xds8bIMMq gMy [file] zRr55/R1mdE2sM4gviYJt0Zh3jkxRFA8bVN8cdvYbxRB6NExps9dpqkCE+Benjamín+aXBMnuCcs64HmwjRbF Fq7vxjnhHdgMUh6CkdTcu+WqgNO1PW5fOTBHgIDu5hwT+sEv+Da4Qf4PSv0LAu8cMjkoJoWfuF+UEJBI 9P+UNmQQnHBQnq6Ji2imW6X0se7zUrPHvya+tLxUUe SO6GZDQ6qJCLOChspkIj3HvHm0a1t/tEYEs7CbKGN8HWOE6e4mq9TEMKDF7nVjdGTSvdNIX4spvaxRnb RmJQC3WemYkfh/cjfFVSphWzwo4zqpZEfmqYu0/mtrM+9OLYBwRn7r0y9AITc+jj1/m4PUVcFBJHVnvt hg85ujOjuwV+D+ytrquYA6s8HqCfIbWQC9fOICnhC9 x+wAdW8K0BSKYXn20yw9AQdIZG4RD6Wi1aujpr5jJQOeb1qnCBW3i0EcFKlqZfA87j0OQjJS+D1t+ZWN v7DRz3loQT3TA173dfC6Rov8cfqrNrx8RQUiLmvREci+lso/zSIw4tx4FVzsu6jsiAOYzDaDLKrCDMLq Z56d9SCgucfR1KPIg9PuGAvie8qNGiXRlspgAzV6pI JOIRGL65rNPyN4ro+FOW640WKmlc2J5Hn6Hes6/WZ/xd+A+E+BT03S2N/nv7elqkm3akoXoXRVW8r2UC 6XSfkB+XxS7s7OBuB07od7zOUxX6eT1LVfccHfvFqf+zD1ngwIFGak2lbGy4m/j88D/tib9Mb5vmYFw7 j8h1lg/5eSxW0Yj/bjA25rXiFh15ljyS80PO9xnqRs WCoW0ZS2ZQ6f3wiXaP+/bA9DaMm+NCitXZgzJtgr0d8LkHuxiuOTCql8BhxJs12TaUq8VwN7i5TY2iSn hlX6dTEVFTd8XUCzMN0qnk97rEVODEZzqmPlvsDE+sUQP+1Ki1fyxzi2Nl8qEcnRWjD7bDAmkDOSx9tA SPTaLS1f+5Cz4eKGw04bvbovx6AvxmVyfw01pydA8e bz3SjWztE2QQ8KjG36YE8vjfbYGOsjr7x/f8ynJ7+2hVGr+6hpNrA4VaEK3bS+gV4oMLagbBUUj8+Jett pCY83TH8CrWw4tqWd8LsQdvS7ya1HWo0FVltt2N620NXEXeYt8TfxiCwjqCI0RMXexLpE2Im+/Y6fd8C 0Hj+mHXJ8MWjI2D3bi/MvyBO3Yrt3fxVZncvwMtEK1 UtcJgXsv0sHnLELpcVvuVOxOuiPiWbYnSaUqmiVkr4Xl1oMfhbD+x0nWxsfKV3KjJw406O7/ew+zKzJt AqxVmr3tSF+X0FIQZkLELEXlttsYeYwN31Hdd0/bpyHLdeKU9aC+FtKDZ7R+v/ii42/fJhfeN4/X1L6r 1sZ4Z63xuzVd8z471e5s758LDiQjpY7SGjw75RXH0F [file] [facility]/Gu21pF90tHURpR2T3UhMkbtXNIiXi5g8NA8 [file] /gqBw94T5YRBWnh5CuerARyRjDBkDBUxl1pvTg12/gQRzRFt048wtQXDusJZR6OjOGo6lTULVPId/chief orthoptist [file] Gc9V8mPDU/STAFF ANALYST+vwWUMM/ii9dPZZvJ/N9u84I2iOkZSWiVAiK0Dc/YNK63qZnsYdkY4TPGg9nnY0MOGL8 [file] AUTOMOTIVE SERVICES MANAGER/W8rcho7h2AHtoacDSnkvXfX8IelzH6Yhl2ONyc [file] SpKkrMGwmUznmXkBFb5bk73La0k+summer camp counselor/FWEVO9A8zv1EeIMqFfu/CdkW5fC1fgqfo/6OS1eK/madsy7Z [file] uqyNUN87jYBpE3lnDCCKHmjF7hwEPKqmSpvV/l [file] Xn/ornamental plasterer helper+FAIGu+c1XERUtL52cuB5cDffDsB/+NVEHgA7K/2PAbuptc99/T/N/tvOAk+NvxH0v44SWOvF73 [file] w7AfJGXTtY80w3ZQ71DjSDzFavy8ejJa9Kq6fofv1xXlcW3V5qu/plveS7OdahMwfvWcHAD13WVMC/Clam Grader oVMY+YtbgTg5lLv+zDB+Qrq32ObmvAB80qSfibT33t ew5Lrx07/qi/5h+bwR1tmJUIeCEegeTvm0XdWi7KuDSPLKjSC/sXytW8uNf2gAuyOzmsp0URAXzrhBFU by0E1/Gl1bFFEF3u+gBwQSe6+SwvK38NkhRoFqF9SRLoMuhjRk7JZODfh2DKJMDI7Csgc9E6Ro+Pjvws N+VkFVQvTrg0pDQKzvcqjh8A2hyR++3WGZS7/8ZBJB 08Mz8OVy7oO0LeWDknj7VwyzZEmvkuh+l49lilgG9NQMqoPU0llPSaPWT9cZmPU4t0bE5wIVjIWXswYW tW81WeFgTdII36dhzCmvfQHe+pj+klSZqEp+opmaS8RoV0gAzT/Y7VGInOkFiGTp/zOpPDdgAbVVAhop xNLgyb7oswHtmoFlQ3kyKiImejNrX9lfeqbI2BDi73 iaiFWs1XZVCkP61o7/tlMDMBa0/9XguVbU7sd2wlwdPROIAuAGP61CI0GtaPIJuVzrh9lJYofSnnlboR BgCW4gJtcIvZxxD/V1NmxwJZ+fcd7ioyDHqKXsPUI4y6CjM3WldJ86YJsOB8sDRt46kn47t/OICYisFI i4mTbi4uIYxo1xygwiPDmhmKmE8b5SzXTiV2RWlA6p Myriam/FNL0iImF12qTvvl99+se88J5qcvhe+S+7P2c8cCyUv2nhvptWZzLIVQ4QZgi48xdNbyIT/NdWuR/ [file] CiPOiS9rAx1Vu7ZWGm0X8yu5IR0U63998JmU0g9YE6 cwyJRpmqZshjeCrClkjwdKBLTQopqcFgEcJOmvy6TnWbC+t9OgPRQCiZMKGJswQpzNCVkIsW/kXLA+ZW doF+vplUD/7+Jose Alberto/23/E+tAciOB/5ME+7tPAN2PhmiaZbz8kAxfcCSoxn5U/dcx3FThbbCvCzge+Tzn7 [file] Jean Marie/OE/8nxhhNXiLWbkO+Yq4F+/Oag6uvkTaU7nUZ0 [file] 3Lf8QtdiX8haFbXPsrEAm7HKk4DLuxGCGWWa== ID Date Data Source [id number] 07/07/2019 12:59:00 PM EST [facility] Name Value Range Interpretation Code Description Data Jesusita rce(s) Supporting Document(s) COMPREHENSIVE METABOLIC PANEL [facility] COMPREHENSIVE METABOLIC PANEL Sodium [Moles/volume] in Serum or Plasma 141 mEq/L 134 - 153 [facility] Potassium [Moles/volume] in Serum or Plasma 4.0 mEq/L 3.6 - 5.0 [facility] Chloride [Moles/volume] in Serum or Plasma 103 mEq/L 98 - 107 [facility] Carbon dioxide, total [Moles/volume] in Serum or Plasma 24 MEQ/L 22 - 30 [facility] Glucose [Mass/volume] in Serum or Plasma 194 MG/DL 65 - 110 H [facility] BUN 10 MG/DL 7 - 21 [facility] Creatinine [Mass/volume] in Serum or Plasma 0.6 MG/DL 0.7 - 1.5 L [facility] BUN/CREAT 17 8 - 27 [facility] Protein [Mass/volume] in Serum or Plasma 6.5 G/DL 6.3 - 8.2 [facility] Albumin [Mass/volume] in Serum or Plasma 3.2 G/DL 3.9 - 5.0 L [facility] Globulin [Mass/volume] in Serum by calculation 3.3 GM/DL 2.4 - 3.2 H [facility] A/G RATIO 1.0 0.8 - 2.0 [facility] Calcium [Mass/volume] in Serum or Plasma 9.6 MG/DL 8.4 - 10.2 [facility] Bilirubin.total [Mass/volume] in Serum or Plasma 0.9 MG/DL 0.2 - 1.3 [facility] Alkaline phosphatase [Enzymatic activity/volume] in Serum or Plasma 81 U/L 38 - 126 [facility] Aspartate aminotransferase [Enzymatic activity/volume] in Serum or Plasma 52 U/L 5 - 40 H [facility] Alanine aminotransferase [Enzymatic activity/volume] in Seru m or Plasma 32 U/L 7 - 56 [facility] Anion gap 3 in Serum or Plasma 14.0 mmol/L 8.0 - 16.0 [facility] AGE [address] [facility] [facility] NON-AA GFR >60 mL/min [facility] ital AFR AMER GFR >60 mL/min [facility] Male GFR In terprentation 20-49 yrs >60 mL/min Normal 50-59 yrs >56 mL/min Normal 60-69 yrs >49 mL/min Normal 70-79yrs >42 mL/min Normal 80 and above >35 mL/min Normal Female GFR Interpretation 20-39 yrs >60 mL/min Normal 40-49 yrs >58 mL/min Normal 50-59 yrs >51 mL/min Normal 60-69 yrs >45 mL/min Normal 70-79 yrs >39 mL/min Normal 80 and above >32 mL/min Normal ID Date Data Source [id number] 07/07/2019 12:47:00 PM [facility] Name Value Range Interpretation Code Description Data Jesusita rce(s) Supporting Document(s) Prothrombin time (PT) 15.8 SECONDS 11.0 - 15.5 H [facility] INR in Platelet poor plasma by Coagulation assay 1.24 0.93 - 1. 23 H [facility] \\BLDo\\INR INTERPRETATION\\BLDx\\ Therapeutic range for Coumadin and related oral anticoagulants. - International Normalized Ratio (INR): 2.0 - 3.0 for Venous Thrombosis, Pulmonary Embolus, Tissue heart valves, Acute PR, Atrial Fibrillation, Valvular heart disease and recurrent Systemic Embolism. -International Normalized Ratio (INR): 2.5 - 3.5 for Mechanical Prosthetic valve. ID Date Data Source [id number] 07/07/2019 12:41:00 PM [facility] Name Value Range Interpretation Code Description Data Jesusita rce(s) Supporting Document(s) CBC NO DIFF [facility] ital COMPLETE BLOOD COUNT Leukocytes [#/volume] in Blood by Automated count 4.2 10^3/uL 4.2 - 1 1.0 [facility] Erythrocytes [#/volume] in Blood by Automated count 4.40 10^6/uL 4. 20 - 5.40 [facility] Hemoglobin [Mass/volume] in Blood 12.1 g/dL 12.0 - 16.0 [facility] Hematocrit [Volume Fraction] of Blood by Automated count 37.5 % 3 7.0 - 47.0 [facility] Erythrocyte mean corpuscular volume [Entitic volume] by Auto mated count 85.2 fL 81.0 - 101 [facility] Erythrocyte mean corpuscular hemoglobin [Entitic mass] by Automated count 27.5 pg 27.0 - 34.0 [facility] Erythrocyte mean corpuscular hemoglobin concentration [Mass/volume] by Automated count 32.3 g/dL 31.0 - 36.0 [facility] Erythrocyte distribution width [Ratio] by Automated count 15.3 % 11.5 - 14.5 H [facility] Platelets [#/volume] in Blood by Automated count 75 10^3/uL 150 - 450 L [facility] Platelet mean volume [Entitic volume] in Blood by Automated count 10.5 fL 7.4 - 10.4 H [facility] Procedure Social History Code Duration Value Status Description Data Source(s ) Smoking 06/10/2020 12:00:00 AM EST Never Smoked A Pipe complet ed Never Smoked A Pipe [facility] ([facility]) Smoking 05/20/2020 12:00:00 AM EDT Never Smoker completed Never S moker eCW1 ([facility]) Vital Signs ID Date Data Source UNK Name Value Range Interpretation Code Description Data Source(s) Body surface area Derived from formula 1.88 m2 1.88 m2 [facility] ([facility]) Body mass index (BMI) [Ratio] 39.8 kg/m2 39.8 k g/m2 [facility] ([facility]) Body height 60 [in_i] 60 [in_i] [facility] ([facility]) 5'0" Body weight 92.534 kg 92.534 kg [facility] ([facility]) Body weight 204.00 [lb_av] 204.00 [lb_av] MEDEN T ([facility]) Body mass index (BMI) [Ratio] 47.46 kg/m2 47.46 kg/m2 [facility] ([facility]) Body height 59 [in_i] 59 [in_i] W1 ([facility]) Body weight 106.59 kg 106.59 kg [facility] ([facility]) Body weight 235 [lb_av] 235 [lb_av] eCW1 (Critical [facility] hospital) Patient Treatment Plan of Care Planned Activity Planned Date Details Description Data Source (s) medroxyprogesterone acetate 10 MG Oral Tablet [Provera ] 12/27/2019 12:00:00 AM EDT eCW1 (Formerly [facility]) medroxyprogesterone acetate 10 MG Oral Tablet [Provera ] 12/27/2019 12:00:00 AM EDT eCW1 (Formerly [facility])
[2020-09-04] MEDS ORDERED: XIFA550T PO (14:09)
[2020-09-04] MEDS ORDERED: AMOX875T2 PO (14:09)
[2020-09-04] MEDS ORDERED: METF500T13 PO (14:10)
--- OUTSIDE RECORDS SUMMARY | 2020-09-04 14:59 | CCD ---
Author Author [facility] Organization [facility] Address Unknown Phone Unavailable Care Team Providers Care Hot Plate Plywood Press Feeder Name Role Phone ZHOU (CARLI), Phyllis MARCOS MD Unavailable Unavailab [...] Phyllis MARCOS MD Unavailable Unavailab le ZHOU (CARIL), Phyllis MARCOS MD Unavailable Unavailab le ZHOU [...] Phyllis MARCOS MD Unavailable Unavailab le ZHOU (ACRLI), Phyllis MARCOS MD Unavailable Unavailab le ZHOU [...] (CARLI), Phyllis MARCOS MD Unavailable Unavailab le ZOHU (CARLI), Phyllis MARCOS MD Unavailable Unavailab le [...] MARCOS MD Unavailable Unavailab le ZHOU (CARLI), Phlylis MARCOS MD Unavailable Unavailab le ZHOU (CARLI), [...] MARCOS MD Unavailable Unavailab le GRIZZANTI, PALMIRA BUHR MILL OPERATOR Unavailable Unavailable GRIZZANTI, PALMIRA BUHR MILL OPERATOR Unavailable Unavailable GRIZZANTI, PALMIRA BUHR MILL OPERATOR Unavailable Unavailable GRIZZANTI, PALMIRA BUHR MILL OPERATOR Unavailable Unavailable GRIZZANTI, PALMIRA BUHR MILL OPERATOR Unavailable Unavailable GRIZZANTI, PALMIRA BUHR MILL OPERATOR Unavailable Unavailable GRIZZANTI, PALMIRA BUHR MILL OPERATOR Unavailable Unavailable GRIZZANTI, PALMIRA BUHR MILL OPERATOR Unavailable Unavailable GRIZZANTI, PALMIRA BUHR MILL OPERATOR Unavailable Unavailable GRIZZANTI, PALMIRA BUHR MILL OPERATOR Unavailable Unavailable GRIZZANTI, PALMIRA BUHR MILL OPERATOR Unavailable Unavailable GRIZZANTI, PALMIRA BUHR MILL OPERATOR Unavailable Unavailable GRIZZANTI, PALMIRA BUHR MILL OPERATOR Unavailable Unavailable GRIZZANTI, PALMIRA BUHR MILL OPERATOR Unavailable Unavailable GRIZZANTI, PALMIRA BUHR MILL OPERATOR Unavailable Unavailable GRIZZANTI, PALMIRA BUHR MILL OPERATOR Unavailable Unavailable GRIZZANTI, PALMIRA BUHR MILL OPERATOR Unavailable Unavailable GRIZZANTI, PALMIRA BUHR MILL OPERATOR Unavailable Unavailable GRIZZANTI, PALMIRA BUHR MILL OPERATOR Unavailable Unavailable GRIZZANTI, PALMIRA BUHR MILL OPERATOR Unavailable Unavailable GRIZZANTI, PALMIRA BUHR MILL OPERATOR Unavailable Unavailable GRIZZANTI, PALMIRA BUHR MILL OPERATOR Unavailable Unavailable GRIZZANTI, PALMIRA BUHR MILL OPERATOR Unavailable Unavailable GRIZZANTI, PALMIRA BUHR MILL OPERATOR Unavailable Unavailable GRIZZANTI, PALMIRA BUHR MILL OPERATOR Unavailable Unavailable GRIZZANTI, PALMIRA BUHR MILL OPERATOR Unavailable Unavailable GRIZZANTI, PALMIRA BUHR MILL OPERATOR Unavailable Unavailable GRIZZANTI, PALMIRA BUHR MILL OPERATOR Unavailable Unavailable GRIZZANTI, PALMIRA BUHR MILL OPERATOR Unavailable Unavailable GRIZZANTI, PALMIRA BUHR MILL OPERATOR Unavailable Unavailable GRIZZANTI, PALMIRA BUHR MILL OPERATOR Unavailable Unavailable GRIZZANTI, PALMIRA BUHR MILL OPERATOR Unavailable Unavailable GRIZZANTI, PALMIRA BUHR MILL OPERATOR Unavailable Unavailable GRIZZANTI, PALMIRA BUHR MILL OPERATOR Unavailable Unavailable GRIZZANTI, PALMIRA BUHR MILL OPERATOR Unavailable Unavailable GRIZZANTI, PALMIRA BUHR MILL OPERATOR Unavailable Unavailable EMERTON, A SHARON MD Unavailable [...] EMERTON, Haley HERRERA MD Unavailable Unavailable EMERTON, Hlaey HERRERA MD Unavailable Unavailable EMERTON, Haley HERRERA [...] MD Unavailable Unavailab le ZHOU (CARLI), Phyllis MARCSO MD Unavailable Unavailab le ZHOU (CARLI), Phyllis [...] is protected by Article 27-F of the [facility] Public Health law. If you continue you may have access to information: Regarding HIV / AIDS; Provided by facilities licensed or operated by the [facility] Office of Mental Health; or Provided by the [facility] Office for People With Developmental Disabilities. If such information is present, then the following [facility] mandated warning applies: This information has been [...] law may result in a fine or prison sentence or both. A general authorization for the release of medical or other information is NOT sufficient authorization for further disc losure. Family History Family Member Name Family Member Gender Family Member Status Date o f Status Description Data Source(s) Unknown Unknown Problem MEDENT ([facility]) Unknown Female Problem MEDENT ([facility]) Unknown Female Problem MEDENT ([facility]) Encounters Encounter Providers Location Date Indications Data Source(s ) [facility] SHARON BONDS MD 07/20/2020 10:59:00 AM EST - 07/20/2020 10:59:00 AM EST [facility] Attender: PRITI EPPERSON ([place]) MDReferrer: Rudy BONDS MD 06/28/2020 08:20:11 PM EST [facility] Attender: PRITI EPPERSON ([place]) MDReferrer: Rudy BONDS MD 06/28/2020 08:20:11 PM EST [facility] Out[facility] Attender: SANDRA YO DPMConsultant: SHARON BONDS MD 06/10/2020 08:30:00 AM EST - 06/10/2020 08:30:00 AM EST [facility] Outpatient Attender: SANDRA YO [facility] 06/10/2020 0 7:30:00 AM EST MEDENT ([facility]) ( [place]) [facility] [employer] CONTROLS ENGINEER Exam [address] [place] [address] 05/20/2020 12:00:00 AM EDT eCW1 ([facility]) [facility] [address] [place] [address] 04/15/2020 12:00:00 AM EDT eCW1 ([facility]) Attender: PRITI HAGER) MDReferrer: Rudy BONDS MD 03/08/2020 08:20:08 PM EDT [facility] Attender: PRITI EPPERSON ([place]) MDReferrer: Rudy BONDS MD 03/08/2020 08:20:08 PM EDT [facility] Attender: PRITI EPPERSON ([place]) MDReferrer: Rudy BONDS MD 03/08/2020 08:20:08 PM EDT [facility] Unknown [address] [facility] [address] 01/25/2020 12:00:00 AM EDT eCW1 ([facility]) [facility] [address] [place] [address] 12/23/2019 12:00:00 AM EDT eCW1 ([facility]) Attender: PRITI HAGER) MDReferrer: Rudy BONDS MD 11/18/2019 08:20:04 PM EDT [facility] Referrer: PRITI EPPERSON MD ([place]) 0 11:08:00 AM EDT [facility] [address] [place] [address] 09/18/2019 12:00:00 AM EST eCW1 ([facility]) [facility] [address] [place] [address] 09/08/2019 12:00:00 AM EST eCW1 ([facility]) [facility] [address] [place] [address] 08/17/2019 12:00:00 AM EST eCW1 ([facility]) [facility] [address] [place] [address] 08/11/2019 12:00:00 AM EST eCW1 ([facility]) Attender: PRITI EPPERSON ([place]) MDReferrer: Rudy BONDS MD 07/14/2019 08:19:12 PM EST [facility] Attender: PRITI EPPERSON ([place]) MDReferrer: Rudy BONDS MD 07/14/2019 08:19:12 PM EST [facility] [address] [place] [address] 07/08/2019 12:00:00 AM EST eCW1 ([facility]) Outpatient Attender: PRITI EPPERSON ([place]) MDConsultant: SHARON BONDS MD 07/07/2019 11:28:00 AM EST - 07/07/2019 12:28:00 PM [facility] Outpatient Attender: PALMIRA TORRE NPConsultant: SHARON SHAH MD 07/07/2019 11:24:00 AM EST - 07/07/2019 12:24:00 PM [facility] Medications Medication Brand Name Start Date Product Form Dose Route Admi nistrative Instructions Pharmacy Instructions Status Indications Reaction Description Data Source(s) medroxyprogesterone acetate 10 MG Oral Tablet [Provera ] Provera 10 MG Provera 10 MG 12/27/2019 12:00:00 AM EDT 1.0 {tablet_with_food} active Provera 10 MG eCW1 ([facility]) medroxyprogesterone acetate 10 MG Oral Tablet [Provera ] Provera 10 MG Provera 10 MG 12/27/2019 12:00:00 AM EDT active 1 tablet with food eCW1 ([facility]) medroxyprogesterone acetate 10 MG Oral Tablet [Provera ] Provera 10 MG Provera 10 MG 12/27/2019 12:00:00 AM EDT 1.0 {tablet_with_food} active Provera 10 MG eCW1 ([facility]) Insurance Providers Payer name Policy type / Coverage type Policy ID Covered republican ID Covered republican's relationship to justice Policy Justice Plan Information MEDICARE [id number] SP [id number] AARP HEALTH CARE OPTIONS [id number] SP [id number] [facility] COMMUNTY PLAN [id number] 18 [id number] MEDICARE PART A [facility] [id number] 18 [id number] MEDICARE C [id number] S [id number] AARP O [id number] S [id number] Medicare Part B [facility] [id number] 0 [id number] [facility] [id number] 0 [id number] Aarp Health Care Option [id number] 0 [id number] YASH CARE EXCHANGE [id number] 0 [id number] [place] [id number] SP [id number] [facility] COMMUNITY PLAN [facility] [id number] SP [id number] MEDICARE PART A [facility] UNAVAILABLE 18 UNAVAILABLE AARP HEALTH CARE OPTIONS [id number] SP [id number] MEDICARE [id number] SP [id number] [facility] MEDICARE [facility] O [id number] S [id number] MEDICARE PART A -O/P [id number] 18 [id number] AARP HEALTH CARE OPTIONS -O/P [id number] 18 [id number] UN MEDICARE COMPLETE - O/P [id number] 18 [id number] MEDICARE [id number] SP [id number] A MEDICARE PART A -O/P [id number] 18 [id number] UN AMERICHOICE XIX O [id number] 18 [id number] [facility] Part B [id number] Self [id number] Aarp Medigap Part B [id number] Self [id number] Medicare [place] Medicare Primary [id number] Self [id number] ANSI-Medicare Part B [id number] ANSI-Commercial [id number] ANSI-Commercial [id number] ANSI-Medicare Part B [id number] ANSI-Commercial [id number] ANSI-Medicare Part B [id number] ANSI-Commercial [id number] ANSI-Medicare Part B [id number] ANSI-Medicare Part B [id number] ANSI-Commercial [id number] ANSI-Commercial [id number] ANSI-Medicare Part B [id number] ANSI-Medicare Part B [id number] ANSI-Commercial [id number] AAR HEALTH CARE OPTIONS [id number] SP [id number] MEDICARE [id number] SP [id number] A [facility] COMMUNITY PLAN MCDO [id number] SP [id number] MEDICARE C [id number] S [id number] A Medicare Part B [facility] [id number] 0 [id number] [facility] COMMUNITY PLAN [id number] UNITED HEALTHCARE -O/P [id number] 18 [id number] [facility] COMMUNITY PLAN MEDICAID [id number] 0 [id number] MEDICARE -O/P [id number] 18 [id number] [facility] [id number] SP [id number] UNHC COMMUNITY PLAN MCDO [id number] SP [id number] UNITED HE[employer]CARE(MCAID) O [id number] S [id number] [facility](MCAID) O [id number] S [id number] BS Reese Hmo Blue Option Medigap Part B Self [facility] Community Plan Commercial Self YASH [id number] SP [id number] AMERICHOICE BY [facility] COMMUNITY PLAN [id number] 0 [id number] AMERICHOICE BY [facility] COMMUNITY PLAN [id number] 0 [id number] [facility] P UNAVAILABLE C UNAVAILABLE [facility](MCAID) P [id number] S [id number] CANCER SERVICE PROGRAM-O/P UNAVAILABLE UNAVAILABLE BLUE CROSS BARR PLAN [id number] SP [id number] BLUE CROSS BLUE SHIELD-O/P [id number] [facility] BLUE [id number] SP [id number] Problems, Conditions, and Diagnoses Code Display Name Description Problem Type Effective Dates Data Source(s) M2042 Other hammer toe(s) (acquired), left melani t Other hammer toe(s) (acquired), left foot Diagnosis 06/10/2020 08:30:00 AM [facility] B351 Tinea unguium Tinea unguium Diagnosis 06/10/2020 08:30:00 AM [facility] E119 Type 2 diabetes mellitus without complic ations Type 2 diabetes mellitus without complications Diagnosis 06/10/2020 08:30:00 AM [facility] R188 Other ascites Other ascites Diagnosis 07/07/2019 11:28:00 AM [facility] K740 Hepatic fibrosis Hepatic fibrosis Diagnosis 07/07/2019 11 :28:00 AM [facility] K7460 Unspecified cirrhosis of liver Unspecified cirrhosis o f liver Diagnosis 07/07/2019 11:24:00 AM [facility] Surgeries/Procedures Procedure Description Date Indications Data Source(s) Debridement Nails Any Method 6 Or More 06/10/2020 12:0 0:00 AM EST MEDENT ([facility]) Results ID Date Data Source [id number] 06/28/2020 09:45:00 AM EST [facility] Name Value Range Interpretation Code Description Data Jesusita rce(s) Supporting Document(s) Follow Up [facility] ULBJBq6uRbZRNdNmLLAwQzrFELgkPPolUILoA1Y8FEczDa4WGVooauFuNHBgXk1+GRAqAO6ums5cSYVh gMy [file] gH/talent advisor+ZgZsoDRcNs9OM9L3s+sPLVU6fx7WuZYJzpd5PQPXoSuEjRRrTK+74ZSo8RbxcXc8cuN3EVZys [file] Material Requisitioner/Navarro+Vk4n5/2sEEUVzHJZbsCxSY+cpvXGKvoGoVG2 [file] 0wzglmb2awrnAnpqajYzj/jykNuthh/Xhee8bpQNMP rgD2+BrfJmp6OV8q6dPu44V895vhbm1+S2Zq1Xdk1OdNqTpu+V5iOuVvHYihCC3b7ptEAfazBQ1jz4qz 26kqhWhKXiEx4XtFVONGLIVhzqUjPizCZypd7tvXYQgOKKXB/xO7yYG+A/FKZWU3KXNrjia4+zpzC7Ea MbbQ18Yav329ga9pF4jwhh9DlSEaiiYqxveoITZ88I q+E2EZT9R8PAIUmFLSanaXeEeprDplSu+RYbb1ty+56hHMpbK77jc5/q3+w5kGS6a7auSRQgHi+QJdCU reSn4718R6S9lfdVhLQvcBK4bcwHNpVnHIZWX6R9UV2K6QdhOhXoFn2cjkN0tfECaAUrS6rnNvqMJXIW rQ2HqLdW5eeD3GO2K1P75z9JEjFpGKf3BcfuGfwG1R 4NwwAYO0PVifRC5fx7y2LaQ9YGC11wF9jb5U/S7FxNVWnU9S7ZanfZNlrgMXSyK+cOCIm1h94qFkEqWg 50BWCkLv4Am7aNH2hpXQpS6fiAgNDiyCwUfwm+eFzZZM/aqnOXTE7X+znHWjOihiARtAqtUdOCddRcNu UtlwmSVsQYvLhpkPINXdDXSID+Vhb11P6Wghg8B/82 QQrBOLlowSzdYr3Vkr2k5e7fcwBdnrihC7HeGsEMCyNg6yff0p9pYe+UAKJs14FMmZCNssoPjvJYywg8 DmpEiHoh96yV1bWe+E1d2s/tQgOXq0xXspCSH99J1JTF7Hg2M2dLrCY6PBWHKBzGvs3/qsey/uZok5Nh IJihjqhokrrLu3TNKGNYeZnyWBfRpaWtSpvOh0pCQJ suPRKoSkdo0fvULpZPBUnyqIV5eu7uyDeeRNRKHFta5c/+0IRBpMIc1JzAGKFRTnOqvn96ErlZMXjyVA [facility]6m+IX/l4JfLKwH4PNk2eKTggOqAsypPIrH/ztGbJNdmA+VYVMiUNkY4CsFDnRD8X0ZHxjr9QM0lz [file] sgNYe+JLbEKV/tD8TRsbqLXXv+ucLnt9Ni/1vqdhHzPUzv30QwWXBo9YpAb0Vhs8snx/XyB151lE+patient experience coordinator [file] 1W56NcrDg8w0MNWriXVsEnJygiVDkO68Hj4jQJwmDpLZeiZriPNOGftw5fhdciM/Raupbazv+6Te+Luis M [file] krPDg310Qzw9f9D54LYX+Carlos Alberto+iNtlYgOU/iUk+MHtE [file] Maria Esther+773gllLS25Epq7AGVQT52Xx86X67ETu3sSHSDUUxwScbd07gFBx0jETgD0gebI7lyly+Rr/AX7Rm [file] Child Welfare Director/hFEbl6/ketH+1ysspWzRR0Fw8nQPFGlxvq9oLvIUC8UbW0gBNEdEyUVx+tQpeV11DKJw1ujvstZ1 oozcHxX28UnOgW1x0VwR1V6vZ2G35nTvFGF6YiQ78goYhVPNfT9opzhYuRap4OrD0lK8Js0H8r3gqYQA diLoYbbKt5tdAGh43I2kkIOBVQlyHVi0qQIe2gvm6G r7E4M8LSoDJbaJysNo7Yfh8uBjPUiIx0u1hjdOThMCgaO+YYCIRv+Hutg7FiYo27/ciPPgFDt6eAQa3P iMbLehc/7gie9JnPCEU4NwGxgt7ziR1Fs7G1uA1kvgy/deMbQu616SVcMppI/WHHGsx+g3KHziwIqJdZ sNqjgZXcI0u4QcM7d2/CpxPn7a980ycS+qd0z8e3hx hRE80rSI4WvtAEsqTv2rDlFIzCQ2Rab/Ir1n50DMXc0DZb4R59YWh99U0D5YHLKdvuY9wLo96MRaqPbb Be4gBf3B0lS0RBE4M/BYeksMHw9DYxxj9XCHRU2z9A95N2Q31rzRdfpehVtiU1kcThptjEF6xabGE0E2 CijeUYXPlimyrEl5CTLBoead1HNBXg8XYAQUS/t9C3 [file] It+bjsKPSs7e3Wvx+favWJ3cq3S981sMM4dlkr [file] sGvqTwXIQx1Ea9ZS1z9XvMzhu2shqKN42ujTW1c4Qd/frozen food department manager/gL5FkTVr/CCI1YDE0EmnzuWBJe8ao1W+E [file] vZROu4DNiP+LzEE/tjBft7dIu09uB15m9fO8R4fPG7drFphurUVOXf9GviJOhm8sp9l/Juan Carlos+m/oHAt/4 [file] ZJgeTOcaSG0NYd7i4bdOYkn+jHsRkJniuhnIYu/Lisseth GeTAYkayjb9j8IRPlDok/KNrL/bJMbNNQIg5St7ZPt96Dj6SAnD05cYgbrqzx/byHvqyVOEmph1UG+iJ CliRLjFWzOM9v198VbEors5si1WK8UN875G8qxrpfTAXxMsmcrxazdd/pdGSsinCLNGUZHKbapmgPxhj BfftflJ2Iu73YXO4YP+/pNPxvORxxjuW9+dG0U5ggU nIduTDxxASbiAqvB6ZEl0ke/Eh6BNWkhIkNN4z5r283LGPorD1fG2uTa2aCtsZlfSYFaDzrCfjzEXnDs csre+4n39v+M3lw/St/zh6JdHQ/qOK7DECjCR6rfdeookPtoJDmDJ8OojL2/GMrxgVLEQxCeqAc6b35H vGsXW//cmeTIzd6VeJ95ECivIL38rRwENznUILFRlY /O8gg3+mpM2hBev9O/h36jj+nSqz1/pEgv8U+aZ4+mn+xgOo645bXx2+5v+txoDR/3MMKiIeTwULdKKZ /pyiUYm5zrTDMjuRdMsd8TOVVT+bKdk7xiV4mGv80D+J2UCuOP98c0gnqvCNkzPf4osW+j+dpL4RFZ5m 0b/8WWGYcOi/WfGK5zFf381ADBVnwkt+EjSiKdO3cZ H07oUCQ0+7suPFHotd/c1iEZE22APs/e6qbc9lUBI/DRu6JBF26phDpWg8PGOaeRm/0rR/sShwSZwPP2 0gn8wGa6Wi505roLrisuRgE50Wjoz7ffOwuKB/94Z9qlT6S67weP0kGYqYhonFLf0Gkqai4ozhcXInZq uOLdwl7Mv8/tbS3ZjaOLPZuySOUgXXMprI9IVPVv42 q4r+4Jk1fYYU6E/hJ2X/C/pagkHqhQz4LOBpQGgjtaNSOCs/V/7/p7sWSuwISoi/VreTNee7/fqSQyvl n/2h1r2I1867KEnLqM8qaBZStLivHdgBbX6+MeLr9ATM0wqB27SXLdsgB/2sMiwR2H6mJpihCy0uIQkm X4TOyUZqxJGQXJk//BUHR MILL OPERATOR/tI7/nwNLA/69fTDq1eHVw4 [file] 4LgE03H4mu+XJyTshUSdDa43FPKDnxk4GYk1aX+torsten uIpjwRJrUVta/Xx3mpPkEbb//93emO9ZMedSPMqa41fD0M08V3077UxVEEzcpL38eiLVnHQs1aTXnhtG IHWW0hFNAud8b+kPBH3d2DLsrXjG7760yRONDKOWxjyGLC3CAXARcF7wzl6JlE1asxuJT2hyMwYqqC3D tJerpszi3wPsCFGENVQChl2hE4c0CA7o6H4rj4fQcu GfqlcCxscXM1Ke1fhlVj/WsH1FZpuG2meQwKltzZbdP4PBWM8hNvyV08K5rr/GETRbJ+cyg69G8m/manager voice [file] xM9JaI8I2rTZ13u0nhmt/DyZFkcEsoLoNLZoy2uuBKP+nUP2IU2XOsZ1ImFFftMeKrjIaYlAFwM++Juan Carlos [file] production [file] NhC1oeNi2/K/maria luisa/uOYKiL6zNOALc8tPbnkaAW5qYbhSol81ODqYIHcv2e4fzW6JnQTFYuaHDm9c9Qsu [file] ionQlvI4y/Ztoxsnoy2/tPJ92k8hxmJmU1p+rJEtk2Yv+WqJ5YCQn/millinery salesperson+VVLr3Q//nwSprSlARyOtSpV [file] LtCW5osl6HPfM8SXQ8jCKrCz5NQHGrJjG6FK7YGPBSN4F= ID Date Data Source Urinalysis, no micro 05/20/2020 01:47:03 PM EDT [facility] Name Value Range Interpretation Code Description Data Jesusita rce(s) Supporting Document(s) n Leukocyte eCW1 ([facility]) n Nitrate eCW1 ([facility]) 1.010 Spec gravity eCW1 ([facility]) 7 pH eCW1 ([facility]) n Glucose eCW1 ([facility]) n Ketones eCW1 ([facility]) n Protein eCW1 ([facility]) n Bilirubin eCW1 ([facility]) yes Internal QC Acceptable (Y/N) e CW1 ([facility]) n Urobili eCW1 ([facility]) n Blood eCW1 ([facility]) ID Date Data Source [id number] 03/08/2020 01:45:00 PM EDT [facility] Name Value Range Interpretation Code Description Data Jesusita rce(s) Supporting Document(s) Follow Up [facility]ology [facility] JWGPUm7fIaKVLgFhABViUwvDXRufWVttRXFbC2C6ZVdjKm1CGVdvquCbCPLhWn0+DAFkJR1kbm9hNJDa gMy [file] zRr55/Z5ntU1rU8rmbGDh6Gm5qphZNK3gJW4rxfWkvUG9BWzyy1jmozOO+Benjamín+pHMWdyXzu70ZfrqKfC Gl6btvfdJbiUIh4TmsVky+LmtIQ5AR0eGYGZiJMw4pmW+sEv+Il8Zz5JPu7MGo5vAipqQtUqfK+UEJBI 9P+JHeKHlUJQur5Kv9scG3K3gr7lMlZXlgm+tLxUUe ED4TCED8pIPXLUvgvhVn5FvQu8l4e/nESSd7JbIKZ5NHJJ1r2tx5ZSGATJ0aCwcZVFvaQMH4eztraKom LnPPK2LfeOuja/yvyMYRkfCwfd4msuNGaedDd7/mtrM+0REMSyIg6q8l0OVFt+jj1/t4JSQpCDVVWesp ov95erDdwqB+D+tojwcMS9p4XoPkUsJJP7lVGUooY0 x+cIoU2X4QHAFOz68iu1ZTlKNG2UG4Sy9xszap2sIJTun8vvQZH3i4PqMEjhMmB25d9FGnWD+D1t+ZWN a9PEf9ebRS0EU402hmE2Xur5cbadJqx9HQOrExfAZho+lso/qOKd8ma8YUumw4sknKVMcQqLBMuVWXSk N85p7YSeshzV5TOWq9RhMYewi6cNNsFQiftkMnC3mY RQWIQI57rMTeX0ey+GDL204XCvhl2H0Yr5Pgl9/WZ/xd+A+E+AO15K8I/ac5wzeyy8ahyMxLVRZ9l3IB 6XSfkB+EcV1n2RJgH61de0rSNdF8wV2MXrgbRvnLti+zA9omlKRGas0xmIl8t/j88D/igm7Fh2aaEBz8 j8h1lg/1nRtQ7Mr/poG20pSlCu68wjnT51XB7spmQi HRuH1HS0NF3l8ajLjE+/gR8UoNw+TRxbEYedDvpw3m5TcCtvdkGWLah0DteNi35VrIg3CzL9i2LL7eDh wwG1yXQUQPc2VSVuQV1qft21yHZXKTUhwaTtfwCL+sUQP+0Mt1olslt2Ax1sCyoYIgF4qYNxrNMOd0gA OQYuQL1g+6Uy6xYQp85fzamjn9JdphWiqc08vipS5d ne4MsPobA3UU8IdT08XV5yecnUELliu3r/f8ynJ7+2hVGr+2scIfE3AcYI7eV+gQ9uNPphqEBUf0+Jett dZE26AX5SmUm4sxBq7WwUufH4zq1AZn9BHmrm3Q697LREMoSe7ZvnqMqdmTE9WYBrrEpN6Ot+/Y6fd8C 0Hj+oRFS2SXzK9S9xm/AriGE4Vqo1gzTIfmyqTpYH0 LyxMqKvj2jVpWHJfdXygIJzHwsDgLgQyYpQikcJpv2Jb6oVureH+e5iTpuxVW0BjZq358O8/ew+zKzJt HeoLfv1jYJ+S9HSQSdKQVAAxopmObEtL90Oqb9/lsxPZkwWR9xD+IuFXN5L+v/ii42/fJhfeN4/X1L6r 3qM1S78rxuDj0z109a2g156TRnJlfO1ZWyr67NUT1X [file] [facility]/Bj86tJ13rZZYpD5K0QhBvptKGWnPv3e6KP4 [file] /kpXq79P6WDJBab4BwxbQCrYeFLlXQChj7ctHy49/hSSzUSz923urAIQrzXVH0YgACx1yNYUZKSz/door worker [file] Aw8J0gLOE/BUHR MILL OPERATOR+vwWUMM/ma8sSEShQ/G3f49O8iKbOEMxABtM3Ju/LRW41tQiqWaiX1UPUv2owE3DISU0 [file] NwKrzKQblXmmfZfGBb2si86Kh3t+buncher operator/PSXYK4D7ln8CwNKjBtk/SndV3aR5cjofp/6OS1eK/fklpb4B [file] tzrYIV31zFXeQ6wkCOUBDgwN8mpDWZzlLexE/l [file] Xn/millinery salesperson+FAIGu+v6ZEAGsV40feI6bHeqPbN/+DKCVfS2J/0ZHsxkcu49/T/N/tvOAk+RsqD7t37DASpP35 [file] q0UbJUZQvS00e5VJ58ZhOPfTyfh0rqBg8Gt7kroa8fYliC0E0il/zsqxA1UcbmCgwhOeQNR78IZVB/Firestopper Installer oVMY+JfpiIr6oQa+zDB+Kru83EnxtBC48wWrlqA66j vp9Aes79/qi/5h+niM8bkSPYcNUdncHxs2FiIw4WuPXTIGxDU/gLxjW1tEl2oUyeCaaez3HDHPcgbWIB by0E1/Fi8zMRXA6i+gBwQSe6+KtoT52GvcBbHnN6TRWgRrptFb1YXMZnb1CTAORD3Uxuj9B7Dx+Pjvws N+FjWBQyQro6pSFIrgadop9X8mrG++3WGZS7/8ZBJB 04Rf8IGm9fD0IyACneq2SsqaYZgizmi+t08bsydS6JNHuaAA8yeHIuJCS8pVqHK1e4qC5uHQsUUFymTC bP69ScRnGsFS44aroFurbLEw+pj+klSZqEp+dviqU7AwY5aLpM/T1LXZnTbGeLMi/zOpPDdgAbVVAhop qPJrat1szeLgxgWjC7moIeRwheUbX2jjjhmG8AIn81 gpsFIi7WFFPcZ76m8/tlMDMBa0/6ZxfLkO3rj7gpggOQKOTgTOD96HA1SqzYWHaRuis3mCLogKtrqlsL TdMZ4rMhwTsLisS/U0KjhpLW+uuq8irfNGtJUnEQB2f8HiT2BqhW38VAoHL1zQSx59lf68n/OICYisFI q0qHzt5bUNru6snawuZApkeDsI0z7KbTQpS3ZIaH4w Myriam/JTK5yYuH38hQjuw74+id81D5qdlun+S+4Y8p9zNyBm8elviyVBbWEYB9HWvh51keOxfOL/NdWuR/ [file] XwYFmQ8oEi4Gv7JYRl0B4sv6UI2V34240PqX0e9CL8 ucdITtxcKnudjCyBrtzvmLIMQPgmmvKjBjSZixi5VyVmF+p7CpNINRvZBJNGpcInxXALzPjS/kXLA+ZW doF+vplUD/7+Jose Alberto/23/E+tAciOB/5ME+0iXNR8JzxbuQbb1zSgaxIDvzl3P/idi8JOecaPqSjlh+Tzn7 [file] Jean Marie/OE/8nxhhNXiLWbkO+Yq4F+/Ebs0exkWcF8tJY2 [file] 9Ss7HdzyO9bsWaSFwbNPu6NQx7BEhxGPRJQp== ID Date Data Source [id number] 07/07/2019 12:59:00 PM EST [facility] Name Value Range Interpretation Code Description Data Jesusita rce(s) Supporting Document(s) COMPREHENSIVE METABOLIC PANEL [facility] COMPREHENSIVE METABOLIC PANEL Sodium [Moles/volume] in Serum or Plasma 141 mEq/L 134 - 153 [facility] Potassium [Moles/volume] in Serum or Plasma 4.0 mEq/L 3.6 - 5.0 [facility] Chloride [Moles/volume] in Serum or Plasma 103 mEq/L 98 - 107 [facility] Carbon dioxide, total [Moles/volume] in Serum or Plasma 24 MEQ/L 22 - 30 [facility] Glucose [Mass/volume] in Serum or Plasma 194 MG/DL 65 - 110 H [facility] BUN 10 MG/DL 7 - 21 [facility] Creatinine [Mass/volume] in Serum or Plasma 0.6 MG/DL 0.7 - 1.5 L [facility] BUN/CREAT 17 8 - 27 [facility] Protein [Mass/volume] in Serum or Plasma 6.5 G/DL 6.3 - 8.2 [facility] Albumin [Mass/volume] in Serum or Plasma 3.2 G/DL 3.9 - 5.0 L [facility] Globulin [Mass/volume] in Serum by calculation 3.3 GM/DL 2.4 - 3.2 H [facility] A/G RATIO 1.0 0.8 - 2.0 [facility] Calcium [Mass/volume] in Serum or Plasma 9.6 MG/DL 8.4 - 10.2 [facility] Bilirubin.total [Mass/volume] in Serum or Plasma 0.9 MG/DL 0.2 - 1.3 [facility] [facility] Alkaline phosphatase [Enzymatic activity/volume] in Serum or Plasma 81 U/L 38 - 126 [facility] Aspartate aminotransferase [Enzymatic activity/volume] in Serum or Plasma 52 U/L 5 - 40 H [facility] Alanine aminotransferase [Enzymatic activity/volume] in Seru m or Plasma 32 U/L 7 - 56 [facility] Anion gap 3 in Serum or Plasma 14.0 mmol/L 8.0 - 16.0 [facility] AGE 59 yrs [facility] al NON-AA GFR >60 mL/min [facility] ital AFR AMER GFR >60 mL/min [facility] Male GFR In terprentation 20-49 [...] >32 mL/min Normal ID Date Data Source [id number] 07/07/2019 12:47:00 PM [facility] Name Value Range Interpretation Code Description Data Jesusita rce(s) Supporting Document(s) Prothrombin time (PT) 15.8 SECONDS 11.0 - 15.5 H [facility] INR in Platelet poor plasma by Coagulation assay 1.24 0.93 - 1. 23 H [facility] \\BLDo\\INR INTERPRETATION\\BLDx\\ Therapeutic range for Coumadin and related oral anticoagulants. - International Normalized Ratio (INR): 2.0 - 3.0 for Venous Thrombosis, Pulmonary Embolus, Tissue heart valves, Acute IA, Atrial Fibrillation, Valvular heart disease and recurrent Systemic Embolism. -International Normalized Ratio (INR): 2.5 - 3.5 for Mechanical Prosthetic valve. ID Date Data Source [id number] 07/07/2019 12:41:00 PM [facility] Name Value Range Interpretation Code Description Data Jesusita rce(s) Supporting Document(s) CBC NO DIFF [facility] ital COMPLETE BLOOD COUNT Leukocytes [#/volume] in Blood by Automated count 4.2 10^3/uL 4.2 - 1 1.0 [facility] Erythrocytes [#/volume] in Blood by Automated count 4.40 10^6/uL 4. 20 - 5.40 [facility] Hemoglobin [Mass/volume] in Blood 12.1 g/dL 12.0 - 16.0 [facility] Hematocrit [Volume Fraction] of Blood by Automated count 37.5 % 3 7.0 - 47.0 [facility] Erythrocyte mean corpuscular volume [Entitic volume] by Auto mated count 85.2 fL 81.0 - 101 [facility] Erythrocyte mean corpuscular hemoglobin [Entitic mass] by Automated count 27.5 pg 27.0 - 34.0 [facility] Erythrocyte mean corpuscular hemoglobin concentration [Mass/volume] by Automated count 32.3 g/dL 31.0 - 36.0 [facility] Erythrocyte distribution width [Ratio] by Automated count 15.3 % 11.5 - 14.5 H [facility] Platelets [#/volume] in Blood by Automated count 75 10^3/uL 150 - 450 L [facility] Platelet mean volume [Entitic volume] in Blood by Automated count 10.5 fL 7.4 - 10.4 H [facility] Procedure Social History Code Duration Value Status Description Data Source(s ) Smoking 06/10/2020 12:00:00 AM EST Never Smoked A Pipe complet ed Never Smoked A Pipe MEDENT ([facility]) Smoking 05/20/2020 12:00:00 AM EDT Never Smoker completed Never S moker eCW1 ([facility]) Vital Signs ID Date Data Source UNK Name Value Range Interpretation Code Description Data Source(s) Body surface area Derived from formula 1.88 m2 1.88 m2 [facility] ([facility]) Body mass index (BMI) [Ratio] 39.8 kg/m2 39.8 k g/m2 [facility] ([facility]) Body height 60 [in_i] 60 [in_i] [facility] ([facility]) 5'0" Body weight 92.534 kg 92.534 kg [facility] ([facility]) Body weight 204.00 [lb_av] 204.00 [lb_av] MEDEN T ([facility]) Body mass index (BMI) [Ratio] 47.46 kg/m2 47.46 kg/m2 [facility] ([facility]) Body height 59 [in_i] 59 [in_i] W1 ([facility]) Body weight 106.59 kg 106.59 kg [facility] ([facility]) Body weight 235 [lb_av] 235 [lb_av] eCW1 ([facility]) Patient Treatment Plan of Care Planned Activity Planned Date Details Description Data Source (s) medroxyprogesterone acetate 10 MG Oral Tablet [Provera ] 12/27/2019 12:00:00 AM EDT eCW1 ([facility]) medroxyprogesterone acetate 10 MG Oral Tablet [Provera ] 12/27/2019 12:00:00 AM EDT eCW1 ([facility])
[2020-09-04 15:18] LABS: BASO % 0.6 % (0.0-1.0); EOS # 0.1 10^3/uL (0.0-0.5); EOS % 1.8 % (0.0-3.0); HEMATOCRIT 37.6 % (36.0-47.0); HEMOGLOBIN 11.7 g/dl (12.0-15.5); LYMPH % 14.9 % (24.0-44.0); MEAN CORPUSCULAR HEMOGLOBIN 26.7 pg (27.0-33.0); MEAN CORPUSCULAR HGB CONC 31.1 g/dl (32.0-36.5); MEAN CORPUSCULAR VOLUME 85.8 fl (80.0-96.0); MONO # 0.5 10^3/uL (0.0-0.8); NEUTROPHILS % 74.2 % (36.0-66.0); RED BLOOD COUNT 4.38 10^6/uL (4.00-5.40); WHITE BLOOD COUNT 6.7 10^3/uL (4.0-10.0)
[2020-09-04 15:27] LABS: INR 1.26; PARTIAL THROMBOPLASTIN TIME 28.6 SECONDS (24.2-38.5); PROTHROMBIN TIME 16.1 SECONDS (12.5-14.3)
--- NOTE | 2020-09-04 15:33 | REP ---
INDICATION: SOB. COMPARISON: Comparison chest x-ray 04 September 2013. TECHNIQUE: Two views.. FINDINGS: The lungs are well inflated and free of infiltrate. The pleural angles are sharp. The heart size is normal. Pulmonary vasculature is not increased. No significant bony abnormality is seen. There are degenerative changes in the thoracic spine. Monitoring electrodes are seen. IMPRESSION: No active disease.. <Electronically signed by Jack Curtis > 09/04/20 2011
[2020-09-04 15:34] LABS: ERYTHROCYTE SEDIMENTATION RATE 49 mm/hr (0-30)
[2020-09-04 15:41] LABS: PLATELET COUNT, AUTOMATED 96 10^3/uL (150-450)
[2020-09-04] MEDS ORDERED: ISOVUE-370 76% 100ML VIAL As Ordered ONE (15:42)
--- NOTE | 2020-09-04 15:44 | REP ---
INDICATION: swelling/ SOB. COMPARISON: Comparison right lower extremity duplex venous scan is from March 10, 2020.. TECHNIQUE: Right lower extremity duplex venous scanning. FINDINGS: There is extensive deep vein thrombosis in the right lower extremity. Occlusive venous thrombosis is seen in the femoral vein from common femoral vein segment to mid femoral vein segment. Nonocclusive thrombus is seen in the distal femoral vein and popliteal vein on the right side. Hypoechoic material is seen within the veins which show lack of complete compressibility.. IMPRESSION: Positive study for extensive occlusive and nonocclusive deep vein thrombosis in the right lower extremity from common femoral vein through popliteal vein.. <Electronically signed by Jack Curtis > 09/04/20 [id number]
[2020-09-04 15:46] LABS: ALBUMIN 2.8 GM/DL (3.2-5.2); ALT/SGPT 68 U/L (12-78); BILIRUBIN,DIRECT 0.4 MG/DL (0.0-0.2); BILIRUBIN,TOTAL 1.2 MG/DL (0.2-1.0); BLOOD UREA NITROGEN 17 MG/DL (7-18); C REACTIVE PROTEIN QUANTITATIV 3.36 MG/DL (0.00-0.30); CALCIUM LEVEL 9.3 MG/DL (8.5-10.1); CARBON DIOXIDE LEVEL 26 MEQ/L (21-32); CHLORIDE LEVEL 107 MEQ/L (98-107); CK-MB VALUE MASS < 1.0 NG/ML (<3.6); CPK CREATINE PHOSPHOKINASE 63 U/L (26-192); CREATININE FOR GFR 0.83 MG/DL (0.55-1.30); GLOMERULAR FILTRATION RATE > 60.0 (>51); GLUCOSE, FASTING 161 MG/DL (70-100); MB/CK RELATIVE INDEX 1.59 (< OR =4); NT-PRO BNP 275 PG/ML (<125); POTASSIUM SERUM 4.1 MEQ/L (3.5-5.1); SODIUM LEVEL 140 MEQ/L (136-145); TOTAL PROTEIN 7.5 GM/DL (6.4-8.2); TROPONIN I < 0.02 NG/ML (< 0.10)
[2020-09-04 16:11] LABS: D-DIMER QUANT > 4000 ng/ml (<500)
[2020-09-04] MEDS ORDERED: TRUL0.5I SC (16:16)
[2020-09-04] MEDS ORDERED: METF10004 PO (16:16)
--- NOTE | 2020-09-04 16:19 | REP ---
INDICATION: SOB/DVT. COMPARISON: No prior chest CT.. TECHNIQUE: Contrast dose: 100 ML of Isovue [address] technique: Helical scanning is acquired and overlapping 1.5 mm and contiguous 3 mm axial images are reformatted. In addition, maximum intensity projection and multiplanar re-formation images are generated in sagittal and coronal imaging projections. FINDINGS: There is good opacification in the pulmonary arterial tree. There is no evidence of vessel cut off or filling defect to suggest pulmonary embolus. Homogeneous opacity is seen in the thoracic aorta. There is no evidence of aneurysm or dissection. Lung window settings demonstrate no pleural or pericardial effusion is seen. There is no evidence of infiltrate, atelectasis, or lung mass. There is a 6 mm noncalcified pulmonary nodule in the right middle lobe. This projects on page 03/03/1984 in series 402 of today's study. There are 2 tiny 2 mm nodules 1 in the right lower lobe on the same page 37 and the other in the right upper lobe projecting on page 11/23/1983. No other significant pulmonary nodule is appreciated. No hilar or mediastinal mass or adenopathy is observed. In the upper abdomen, there is evidence of diffuse mild upper abdominal ascites. There is hypertrophy of the left lobe of the liver and splenomegaly consistent with cirrhosis. Post cholecystectomy clips are noted. No adrenal mass is seen. No bony destructive lesion. IMPRESSION: No CT evidence of pulmonary embolus. Evidence of cirrhosis with upper abdominal ascites. There is a 6 mm noncalcified pulmonary nodule in the right middle lobe. Follow-up chest CT suggested in 6 months. <Electronically signed by Jack Curtis > 09/04/20 [id number]
--- NOTE | 2020-09-04 16:24 | REP ---
INDICATION: ascites, flank pain. COMPARISON: Comparison CT study of the abdomen and pelvis June 21, 2020.. TECHNIQUE: Helical scanning was acquired and 4 mm axial images are re-formatted. Coronal and sagittal MPR images were generated and reviewed. The contrast enhancement dose is 100 mL of intravenous Isovue 370. 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 The lung bases are clear. There is a macro nodular liver contour and hypertrophy of the left lobe consistent with cirrhosis. Splenomegaly is again observed. Spleen measures 15.0 cm in greatest diameter. There are venous collaterals in the upper abdomen including varices at the gastroesophageal junction. The gallbladder surgically absent. No focal liver lesion is seen. No adrenal abnormality is observed. No abnormality is seen in the pancreas. Kidneys enhance symmetrically. There is a small cyst in the upper pole of the right kidney measuring 2.3 cm in greatest diameter. There is diffuse abdominal ascites as before. The amount of ascites is somewhat increased compared to 21 June 2020. A mild ileus pattern is seen in the bowel gas. There is a periumbilical ventral hernia trans Miller abdominal fat and some ascitic fluid. There is diffuse subcutaneous edema and dermal thickening again noted in the panniculus. This is somewhat more prominent than on the prior study and may reflect cellulitis. No soft tissue abscess is seen. No uterine or ovarian abnormality is seen. Urinary bladder is intact. No bony destructive lesion is seen. IMPRESSION: Evidence of cirrhosis with portal hypertension esophageal varices, diffuse abdominal ascites, splenomegaly. There is cellulitis pattern in the abdominal panniculus somewhat more prominent than on the prior study. Mild ileus pattern in the bowel gas. <Electronically signed by Jack Curtis > 09/04/20 [id number]
[2020-09-04] MEDS ORDERED: GLUCOSE 4GM CHEW TABLET PO PRN (17:45)
[2020-09-04] MEDS ORDERED: DEXTROSE 50% 50 ML SYRINGE IV PRN (17:45)
[2020-09-04] MEDS ORDERED: HEPARIN SOD (PORCINE) 5000UNITS/ML 1ML VIAL/SYRINGE IV PRN (17:45)
[2020-09-04] MEDS ORDERED: GLUCAGON INJ 1MG VIAL SC PRN (17:45)
[2020-09-04] MEDS ORDERED: SPIRONOLACTONE 50 MG TAB PO PRN (17:45)
--- OUTSIDE RECORDS SUMMARY | 2020-09-04 17:46 | CCD ---
Author Author [facility] Organization [facility] Address Unknown Phone Unavailable Care Team Providers Care Custom Shop Worker Name Role Phone ZHOU (CARLI), Phyllis MARCOS [...] MD Unavailable Unavailab le ZHOU (CARLI), Phyllis MRACOS MD Unavailable Unavailab le ZHOU (CARLI), Phyllis [...] MARCOS MD Unavailable Unavailab le GRIZZANTI, PALMIRA LOADING UNIT OPERATOR Unavailable Unavailable GRIZZANTI, PALMIRA LOADING UNIT OPERATOR Unavailable Unavailable GRIZZANTI, PALMIRA LOADING UNIT OPERATOR Unavailable Unavailable GRIZZANTI, PALMIRA LOADING UNIT OPERATOR Unavailable Unavailable GRIZZANTI, PALMIRA LOADING UNIT OPERATOR Unavailable Unavailable GRIZZANTI, PALMIRA LOADING UNIT OPERATOR Unavailable Unavailable GRIZZANTI, PALMIRA LOADING UNIT OPERATOR Unavailable Unavailable GRIZZANTI, PALMIRA LOADING UNIT OPERATOR Unavailable Unavailable GRIZZANTI, PALMIRA LOADING UNIT OPERATOR Unavailable Unavailable GRIZZANTI, PALMIRA LOADING UNIT OPERATOR Unavailable Unavailable GRIZZANTI, PALMIRA LOADING UNIT OPERATOR Unavailable Unavailable GRIZZANTI, PALMIRA LOADING UNIT OPERATOR Unavailable Unavailable GRIZZANTI, PALMIRA LOADING UNIT OPERATOR Unavailable Unavailable GRIZZANTI, PALMIRA LOADING UNIT OPERATOR Unavailable Unavailable GRIZZANTI, PALMIRA LOADING UNIT OPERATOR Unavailable Unavailable GRIZZANTI, PALMIRA LOADING UNIT OPERATOR Unavailable Unavailable GRIZZANTI, PALMIRA LOADING UNIT OPERATOR Unavailable Unavailable GRIZZANTI, PALMIRA LOADING UNIT OPERATOR Unavailable Unavailable GRIZZANTI, PALMIRA LOADING UNIT OPERATOR Unavailable Unavailable GRIZZANTI, PALMIRA LOADING UNIT OPERATOR Unavailable Unavailable GRIZZANTI, PALMIRA LOADING UNIT OPERATOR Unavailable Unavailable GRIZZANTI, PALMIRA LOADING UNIT OPERATOR Unavailable Unavailable GRIZZANTI, PALMIRA LOADING UNIT OPERATOR Unavailable Unavailable GRIZZANTI, PALMIRA LOADING UNIT OPERATOR Unavailable Unavailable GRIZZANTI, PALMIRA LOADING UNIT OPERATOR Unavailable Unavailable GRIZZANTI, PALMIRA LOADING UNIT OPERATOR Unavailable Unavailable GRIZZANTI, PALMIRA LOADING UNIT OPERATOR Unavailable Unavailable GRIZZANTI, PALMIRA LOADING UNIT OPERATOR Unavailable Unavailable GRIZZANTI, PALMIRA LOADING UNIT OPERATOR Unavailable Unavailable GRIZZANTI, PALMIRA LOADING UNIT OPERATOR Unavailable Unavailable GRIZZANTI, PALMIRA LOADING UNIT OPERATOR Unavailable Unavailable GRIZZANTI, PALMIRA LOADING UNIT OPERATOR Unavailable Unavailable GRIZZANTI, PALMIRA LOADING UNIT OPERATOR Unavailable Unavailable GRIZZANTI, PALMIRA LOADING UNIT OPERATOR Unavailable Unavailable GRIZZANTI, PALMIRA LOADING UNIT OPERATOR Unavailable Unavailable GRIZZANTI, PALMIRA LOADING UNIT OPERATOR Unavailable Unavailable EMERTON, A SHARON MD [...] A SHARON MD Unavailable Unavailable EMERTON, A SHARNO MD Unavailable Unavailable EMERTON, A SHARON MD [...] MD Unavailable Unavailab le ZHOU (CARLI), Phyllis AMRCOS MD Unavailable Unavailab le ZHOU (CARLI), Phyllis MARCOS MD Unavailable Unavailab le ZHOU (CARLI), Phyllis MARCOS MD Unavailable Unavailab le ZHOU (CARLI), Phyllis MARCOS MD Unavailable Unavailab le ZHOU (CARLI), Pyhllis MARCOS MD Unavailable Unavailab le ZHOU (CARLI), [...] Phyllis MARCOS MD Unavailable Unavailab le ZHOU (CRALI), Phyllis MARCOS MD Unavailable Unavailab le ZHOU [...] is protected by Article 27-F of the [facility] Public Health law. If you continue you may have access to information: Regarding HIV / AIDS; Provided by facilities licensed or operated by the [facility] Office of Mental Health; or Provided by the [facility] Office for People With Developmental Disabilities. If such information is present, then the following [facility] mandated warning applies: This information has [...] law may result in a fine or custodial sentence or both. A general authorization for the release of medical or other information is NOT sufficient authorization for further disc losure. Family History Family Member Name Family Member Gender Family Member Status Date o f Status Description Data Source(s) Unknown Unknown Problem MEDENT ([facility]) Unknown Female Problem MEDENT ([facility]) Unknown Female Problem MEDENT ([facility]) Encounters Encounter Providers Location Date Indications Data Source(s ) [facility]patient [facility]: SHARON BONDS MD 07/20/2020 10:59:00 AM EST - 07/20/2020 10:59:00 AM EST [facility] Attender: PRITI EPPERSON ([place]) MDReferrer: Rudy BONDS MD 06/28/2020 08:20:11 PM EST [facility] Attender: PRITI EPPERSON ([place]) MDReferrer: Rudy BONDS MD 06/28/2020 08:20:11 PM EST [facility] Outpatient Attender: SANDRA YO DPMConsultant: SHARON BONDS MD 06/10/2020 08:30:00 AM EST - 06/10/2020 08:30:00 AM EST [facility] Outpatient Attender: SANDRA YO DPM Family Practice 06/10/2020 0 7:30:00 AM EST [facility] ([facility]) [facility] [place] MULTIPLE KNIFE EDGE TRIMMER OPERATOR Exam [address] [place] [address] 05/20/2020 12:00:00 AM EDT eCW1 ([facility]) [facility] [address] [place] [address] 04/15/2020 12:00:00 AM EDT eCW1 ([facility]) Attender: PRITI HAGER) MDReferrer: Rudy BONDS MD 03/08/2020 08:20:08 PM EDT [facility] Attender: PRITI EPPERSON ([place]) MDReferrer: Rudy BONDS MD 03/08/2020 08:20:08 PM EDT [facility] Attender: PRITI EPPERSON ([place]) MDReferrer: Rudy BONDS MD 03/08/2020 08:20:08 PM EDT [facility] Unknown [address] [facility], [facility] [address] 01/25/2020 12:00:00 AM EDT eCW1 ([facility]) [facility] [address] [place] [address] 12/23/2019 12:00:00 AM EDT eCW1 ([facility]) Attender: PRITI HAGER) MDReferrer: Rudy BONDS MD 11/18/2019 08:20:04 PM EDT [facility] Referrer: PRITI EPPERSON MD ([place]) 0 11:08:00 AM EDT [facility] [address] [place] [address] 09/18/2019 12:00:00 AM EST eCW1 ([facility]) [facility] [address] [place] [address] 09/08/2019 12:00:00 AM EST eCW1 ([facility]) [facility] [address] [place] [address] 08/17/2019 12:00:00 AM EST eCW1 ([facility]) [facility] [address] [place] [address] 08/11/2019 12:00:00 AM EST eCW1 ([facility]) Attender: PRITI EPPERSON ([place]) MDReferrer: Rudy BONDS MD 07/14/2019 08:19:12 PM EST [facility] Attender: PRITI EPPERSON ([place]) MDReferrer: Rudy BONDS MD 07/14/2019 08:19:12 PM EST [facility] [address] [place] [address] 07/08/2019 12:00:00 AM EST eCW1 ([facility]) Outpatient Attender: PRITI EPPERSON ([place]) MDConsultant: SHARON BONDS MD 07/07/2019 11:28:00 AM EST - 07/07/2019 12:28:00 PM [facility] Outpatient Attender: PALMIRA TORRE NPConsultant: SHARON SHAH MD 07/07/2019 11:24:00 AM EST - 07/07/2019 12:24:00 PM [facility] Medications Medication Brand Name Start Date Product Form Dose Route Admi nistrative Instructions Pharmacy Instructions Status Indications Reaction Description Data Source(s) medroxyprogesterone acetate 10 MG Oral Tablet [Provera ] Provera 10 MG Provera 10 MG 12/27/2019 12:00:00 AM EDT 1.0 {tablet_with_food} active Provera 10 MG eCW1 ([facility]) medroxyprogesterone acetate 10 MG Oral Tablet [Provera ] Provera 10 MG Provera 10 MG 12/27/2019 12:00:00 AM EDT active 1 tablet with food eCW1 ([facility]) medroxyprogesterone acetate 10 MG Oral Tablet [Provera ] Provera 10 MG Provera 10 MG 12/27/2019 12:00:00 AM EDT 1.0 {tablet_with_food} active Provera 10 MG eCW1 ([facility]) Insurance Providers Payer name Policy type / Coverage type Policy ID Covered libertarian ID Covered libertarian's relationship to justice Policy Justice Plan Information MEDICARE [id number] SP [id number] AARP HEALTH CARE OPTIONS [id number] SP [id number] [facility] COMMUNTY PLAN [id number] 18 [id number] MEDICARE PART A [facility] [id number] 18 [id number] MEDICARE C [id number] S [id number] AARP O [id number] S [id number] Medicare Part B [facility] [id number] 0 [id number] [facility] [id number] 0 [id number] Aarp Health Care Option [id number] 0 [id number] YASH CARE EXCHANGE [id number] 0 [id number] [place] [id number] SP [id number] [facility] COMMUNITY PL[facility] [id number] SP [id number] MEDICARE PART A [facility] UNAVAILABLE 18 UNAVAILABLE AARP HEALTH CARE OPTIONS [id number] SP [id number] MEDICARE [id number] SP [id number] [facility] MEDICARE [facility] O [id number] S [id number] MEDICARE PART A -O/P [id number] 18 [id number] AARP HEALTH CARE OPTIONS -O/P [id number] 18 [id number] UN MEDICARE COMPLETE - O/P [id number] 18 [id number] MEDICARE [id number] SP [id number] A MEDICARE PART A -O/P [id number] 18 [id number] UN AMERICHOICE XIX O [id number] 18 [id number] [facility] Part B [id number] Self [id number] Aarp Medigap Part B [id number] Self [id number] [place] Medicare Primary [id number] Self [id number] ANSI-Medicare Part B [id number] ANSI-Commercial [id number] ANSI-Commercial [id number] ANSI-Medicare Part B [id number] ANSI-Commercial [id number] ANSI-Medicare Part B [id number] ANSI-Commercial [id number] ANSI-Medicare Part B [id number] ANSI-Medicare Part B [id number] ANSI-Commercial [id number] ANSI-Commercial [id number] ANSI-Medicare Part B [id number] ANSI-Medicare Part B [id number] ANSI-Commercial [id number] AAR HEALTH CARE OPTIONS [id number] SP [id number] MEDICARE [id number] SP [id number] A [facility] COMMUNITY PLAN MCDO [id number] SP [id number] MEDICARE C [id number] S [id number] A Medicare Part B [facility] [id number] 0 [id number] [facility] COMMUNITY PLAN [id number] UNITED HEALTHCARE -O/P [id number] 18 [id number] [facility] COMMUNITY PLAN MEDICAID [id number] 0 [id number] MEDICARE -O/P [id number] 18 [id number] [facility] [id number] SP [id number] UNHC COMMUNITY PLAN MCDO [id number] SP [id number] UNITED [facility]CARE(MCAID) O [id number] S [id number] [facility](MCAID) O [id number] S [id number] BS Reese Hmo Blue Option Medigap Part B Self [facility] Community Plan Commercial Self YASH [id number] SP [id number] AMERICHOICE BY [facility] COMMUNITY PLAN [id number] 0 [id number] AMERICHOICE BY [facility] COMMUNITY PLAN [id number] 0 [id number] [facility] P UNAVAILABLE C UNAVAILABLE [facility](MCAID) P [id number] S [id number] CANCER SERVICE PROGRAM-O/P UNAVAILABLE UNAVAILABLE BLUE CROSS BARR PLAN [id number] SP [id number] BLUE CROSS BLUE SHIELD-O/P [id number] 18 [id number] [facility] BLUE [id number] SP [id number] Problems, Conditions, and Diagnoses Code Display Name Description Problem Type Effective Dates Data Source(s) M2042 Other hammer toe(s) (acquired), left melani t Other hammer toe(s) (acquired), left foot Diagnosis 06/10/2020 08:30:00 AM [facility] B351 Tinea unguium Tinea unguium Diagnosis 06/10/2020 08:30:00 AM [facility] E119 Type 2 diabetes mellitus without complic ations Type 2 diabetes mellitus without complications Diagnosis 06/10/2020 08:30:00 AM [facility] R188 Other ascites Other ascites Diagnosis 07/07/2019 11:28:00 AM [facility] K740 Hepatic fibrosis Hepatic fibrosis Diagnosis 07/07/2019 11 :28:00 AM [facility] K7460 Unspecified cirrhosis of liver Unspecified cirrhosis o f liver Diagnosis 07/07/2019 11:24:00 AM [facility] Surgeries/Procedures Procedure Description Date Indications Data Source(s) Debridement Nails Any Method 6 Or More 06/10/2020 12:0 0:00 AM EST MEDENT ([facility]) Results ID Date Data Source [id number] 06/28/2020 09:45:00 AM EST [facility] Name Value Range Interpretation Code Description Data Jesusita rce(s) Supporting Document(s) Follow Up [facility] VXAFYa6mJnBCCsHpVSOnKkeVMHjfGXsgMUXtG9J8MZhjRj0FFXggwzPaPDFoFt6+VELwLS9nvr1hMORy gMy [file] gH/mobile phone salesperson+WwDktDQeCr3BO9C5m+zAART3do4LzBPEmdg1NODRrQlEmLTcKC+36VXz9GoqmRh1qeK9BEYlb [file] Valve And Regulator Repairer/Navarro+Vk4n5/2sEEUVzHJZbsCxSY+cpvXGKvoGoVG2 [file] 3zvwnex7jafaHxerivDzi/jykNuthh/Hqwg8gkGMBW rgD2+KreJpu2YB5a5iFp85U979kzqg9+T4Ir3Pkx3BtUzOtj+E5cFoGvTBexWQ8y8fxGShtuAC3df7tw 33unwMjFJpRr7HuBDWEWZEWceqNrZgeOTgde6wtRIDfASSMM/xO7yYG+A/JITMZ2PFIddhh6+aivU3Qr NauB83Znq721ri4oO5vwcc0QcZHnpkGayyvqHJS31U q+S6OTL4I8NWMTyETTlviWrVmlwHzaJe+GDzg9zc+50xERxwF73jz9/q3+i6wGS6v5cdKARpPm+QJdCU xyGh3505S8Q8oslVqVNyjDV8dpvDSjXbQICCW6Q0QP3J7HkeZhClTb4xrvV4ixTGlHQmN6laJwwNGWLR wS8QhSkU1tmY5PJ4G8Q71p0GHoXkUDc6RfmtHdjS5E 6ZrlREC4CSffIH5ql9q8KhO3NCN10yG8ig8A/U1GqJOOfB0P7HtjjYCeviNSJeZ+uAJXv7z62fGnNwJe 16GIEeVs6Vk4fSO4yfWJxC8ebHrVBrgHyZvam+eFzZZM/calQDIJ4Z+znHWjOihiARtAqtUdOCddRcNu UtlwmSVsQYvLhpkPINXdDXSID+Bjo70U3Zycd3D/82 DMdHHSpsyGrgOe4Hhs3x1m5iwkSjaslhJ8XdBuRLZiIp1jot8u7lUl+MSDYk24PWaSDUzrqUuyWGdev8 FkzWcHzj45vX1zMv+E1d2s/kAtLXr1xTrmFJP72I9IIF0Hv4S6eVrQP6VEGFMGzZgf4/qsey/tJtg9Io VHkrwtwpgkpNs9PNOKVCmWueIMzChvPaMsxYq4rPNV eaPXVcBbho6tuVOdQOZHrtiBN6ng5dmCagYXIWLRgk4s/+0GDCsMHp7AtBPQDODtRtlf71DtnZUVfhKJ [facility]6m+IX/v3ZtYGkA3BPw3zYFdtTwMbnoBJaQ/ztGbJNdmA+PXIEpDIlN4HrGLdJA2S8CMbuu5CJ4rk [file] sgNYe+JLbEKV/uL8WIcylBYHk+tjMvs6Jz/1ntodXyBXln63TeUEQo7RpDn0Gzh0vvf/ClR389bI+director of research [file] 2L45HtfDs8u8XYSzgYEvQaTwvlUIvL57Cr7jQYkgXdIDjyRqoFIKFjuc7qrpbsD/Raupbazv+6Te+Luis M [file] gmXBm158Cmw6m3S24AGJ+Carlos Alberto+iNtlYgOU/iUk+MHtE [file] Maria Esther+647stxPG14Vfw0NHJIX05Uv22I07YDy3cDOVRUUmpXffv40gWAq4lFYkF9pysT6uxfq+Rr/AX7Rm [file] Carbon Brushes Assembler/hFEbl6/ketH+2gdcoPmJB6Ed7pKPGEpiye3nRwBJU5LzE9hQBBiOxXUz+mJgxJ60JMSu3ocmrnD6 rjscPwJ20OfJoB4s3GwG9W5xQ1E37iFwZRW6VgI70kvOfSKKjT9djstWrUsu9XjO1vJ3Aw9W8b6ltNTX coYzPxqIw8phFEg65T5fjKALPMajSTn2cIFk4pvp9H m2U2A1GSqGQcxEqvKi1Xam8dYrUTiWp1q1oykPRgUOucL+YYCIRv+Erjw0ApTl18/afKIaADi7xCJo8N iMbLehc/3eec9CxXSQK0TzOqpz5nvE3Wl6M8cU8vcqx/nkDeKx565JUvCqzW/WHHGsx+h2RXtinYeQzM bYjchOOeT2l8WmM3p2/DbvHl0o075feU+wc8l0s5wy bBN41wFR1CgbANtvUh6fCvODdDC9Syq/Wo3i19IKSr1MLe9G16DSh94T0B5MQXVqjwA2hQm93YGmpJmo Zw4gNc1T0pH5EDP8D/WHoeqCGc5GTwcb1HITXJ6h6R68M6W04hcZxfnifHuoF2nmNibbtXH4kkzLL5U4 SdtrPQGNkswjvMv0EMNNadsr9HLZGd2MBIMAN/t9C3 [file] It+embJUIn8u4Obn+jvkTP7px4V304rUK4dgtf [file] dACNu1WRuU+LzEE/beFkg5aZc20gG99g8qX1B6aCR5amSrihyLCRUs5KpmWXge0sb3n/Juan Carlos+m/oHAt/4 [file] MTndHTqlJQ0HFt3r9kqOSje+jHsRkJniuhnIYu/Lisseth MtLWCkucjb3a7TCVbUfr/KNrL/wUHqAGCHr9Gi6UIw82Et0PZrZ84fFybuzxf/ycSqobDFVifr5LZ+iJ FlbDLqXXkSF6r833EoItpb0ui5LI6ZH314P7vpaueMIFjJounpfsavp/pdGSsinCLNGUZHKbapmgPxhj FcmbvrX6Nx44HXS2JZ+/pNPxvORxxjuW9+hT5E4aoU nGdhUTgzBQaqDeeU8URa4fn/Hg3NYUxpFmRT9i9q275YFGlkU8cN4eQt1eKvcScsLBDsTzzGsvpMJxMk csre+4n39v+M3lw/St/aq4NxJB/eVZ5EFSiVB2ueocwzsOvyRFiLT9LdwH8/JWkeyCJSYuRxpXu8x43X vGsXW//fvtUDfk3TzZ51HSfsJY51kIlACiqQBQHIjD /O8gg3+nfY0eSjp7S/h36jj+nSqz1/pEgv8U+aZ4+mn+fiSc990xDp3+5v+txoDR/3MMKiIeTwULdKKZ /yjgSCo9hhQLEhaWbFib2RWSJB+lTih3opD1cZf87Q+X8POcWN15l4xjmmOQfeBm6vuV+j+imM7PYS6w 0b/8WWGYcOi/WnQX1cXk133DLNTqnsi+MhDjWeD2pY A25gEXF8+7suPFHotd/f6xYOR75AQw/r3pgs2jLXU/LWb4NGQ88lqBzEw6EIRhmTl/0rR/sShwSZwPP2 8ve2kVx8Cs603ixEktyoJpA31Esqt7zrCtnQN/65X7wvA0J17haU8vXJoPevwAIw0Wsqag4thdtKQmHq cTBbuf2Dl0/xwH5ZwfNCILtqTXLqIWZjwQ3OWAQa45 q4r+6Rk1hDVO0G/hJ2X/C/dwslIxmDp5ZLUbOLzmjgKZMBz/V/7/b5hVHxqTSuj/VreTNee7/fqSQyvl n/7j4l6E2029UYwByX7wpSRNeLvcYmiGiV7+LtWo7JSR8zlE69TFQcswI/4ySntG4K6jGnlxUt0tOZwo W4EIsDMdiNXZTQx//LOADING UNIT OPERATOR/tI7/nwNLA/61fRPx0uCGr5 [file] 5GgH54L0as+YUfBxcEMqXa80ZHRSkfj2IZr5yI+torsten uIpjwRJrUVta/Ei0xyCuLem//47drO7CCazGAJks23nC5L90I9605HxZMNodyP69brKZhRSv1uDFylyN MKFK2zYIPrl3n+sBJJ2p6PUzhNdX8998fVPNYAFOwpsATJ0RSRKPdS9nvf1EmH6jtdnJW6kuOiJozC5Q fVugunmi1tKxGCQKJDNSec6jU6u1IH3n6E2ur1qEue BndxiXsswSV3Fp5rrpPn/SxI6EUblJ6frIiJrirWrcJ4JGXQ8hKwlY80J2ho/GETRbJ+zxr58H6b/assembler ping pong table [file] fJ8GsM2L0iFQ16x4xqdd/QwFZdwUqrDrCRIay2nwPCT+jSN6CV3UUwC3WuVMftFqQgsJiDqQTuH++Juan Carlos [file] mobile products [file] DsI9diRe9/K/maria luisa/zABFrY5hHGBCo1jNjidvDU4bUwlNce84BAlKOIaw9i5lrO4ZjTCPHlgGYo1h8Yoz [file] lodBrkX8s/Ztoxsnoy2/zNY04y3djiFnJ0q+iVDxa6Qv+ThQ2CVFv/science editor+VVLr3Q//nwSprSlARyOtSpV [file] [place]/0VzvfFUUneJ94p9QIupk2FA/xeoJwvA7DKXOZYvtQyLlKurYwowsiUudgmX5vtzWCn3ywvSEVOcv C0KWLCn4hUr9FDKM9LyXUi9SobD17ByBUtoBx07ER3 vA13y1HY2xU1qUlGapUWZm8oERKpyiHyj3Y0wtEIQKD+iPJUDQykgFfUlKaF3XI7Fj4gDwDQz4hif/a4 iU1jOZteA0eVFm71GYnp0ejAAwli/b561LoTXy7HjeK4rf/W76apFWoJAHFIfj8yVxxs5ZG4YKNMdi3r msvqZSsoVJzp0rvOCYafgU4BXhhAaicT8Q6hyOb3b8 yOahnnKehaFywQ6eYOCxf/tuIeBc2TC/d6uK5HzHVqYhj/EJzJKqlIHSUtEAG0BR4xOL0/Amandeep+ikKXq3F [file] LoPO0cbs2DJiI4IVW0jHQgKr9HARCcOtM7AR1KMQNPH6C= ID Date Data Source Urinalysis, no micro 05/20/2020 01:47:03 PM EDT eCW1 ([facility]) Name Value Range Interpretation Code Description Data Jesusita rce(s) Supporting Document(s) n Leukocyte eCW1 ([facility]) n Nitrate eCW1 ([facility]) 1.010 Spec gravity eCW1 ([facility]) 7 pH eCW1 ([facility]) n Glucose eCW1 ([facility]) n Ketones eCW1 ([facility]) n Protein eCW1 ([facility]) n Bilirubin eCW1 ([facility]) yes Internal QC Acceptable (Y/N) e CW1 ([facility]) n Urobili eCW1 ([facility]) n Blood eCW1 ([facility]) ID Date Data Source [id number] 03/08/2020 01:45:00 PM EDT [facility] Name Value Range Interpretation Code Description Data Jesusita rce(s) Supporting Document(s) Follow Up [facility] ZZLAJc2bUwZPRuZnNEBgJwjZKHzkWFxxFXOzH5A5YSyxGb8YPKpkpgTrOBMhVj4+PCDjXK3pdu1mXIZg gMy [file] zRr55/B7ukJ4mV5fdiDHs4Rt5sgxGHC5fEK4zrdQwpGT1ZIujq9mjvgWV+Benjamín+eAJYgiSie36TdrqGcQ Bu2uqwoaQicZVo1ElxPrf+GmmYC0HM1vWPUOcOWk3aeY+sEv+Yo1Gr2BCc5BWv8bCfdgRxUqmO+UEJBI 9P+WRhKPpUQIxz7Ed4wqX5X4cv3mRmBJxfh+tLxUUe LM0EQBF4bTHGQMbgdkNa1BdJh4y2k/rAPZg5HnMQZ4PNQI1x6ix7JIJOST7kLokBZGrpKFT4sdggmYki RrVDI1IbbAfrh/cpeKZOjiLhik5jlfUOqboNv0/mtrM+1LQQZmCd3b1j8BFVh+jj1/u4IVBiGJZEJioq ei95giVdtfK+D+rctpvVL7l1TiAnEyISI0lITJewV2 x+kVhB3V6GPRVPs35rj8RIaUIF7RA3Du4bnarx8oVREyi1nqBQZ0c3PwXSofUzB88o1TJpEY+D1t+ZWN h5OXw0gxYQ2BF251zrM3Fng4trstIqj1ZNIxWwdGZyz+lso/lXLx3gy7NJllc9avlKWPnSvCQVjKNRAb H98d9IMmqelL5VGRt1LaEOaln8aBUqZYsajaLyZ8zE BBLTLK21nXMkY3xk+DZF662AIgqr7V2Nf9Onm5/WZ/xd+A+E+LL42E4U/vk5fpwsh1khoHmCJMZ2y2PB 6XSfkB+DrF5b5TAsL12au9oJGtE4oC2RQyoyLfkVcs+bN2ktbAIMdg1ktNe7g/j88D/qkz8Af5dkOGn2 j8h1lg/4iAbT7Ac/jsN34iXnBn66tqoD62AU4dlmYv JDiA0NF0OK1a9fxEsE+/wW8VyPb+APijDSpgPwsn7k0BqXybheEPHmv0NkdFo63GtNs9FtP9y4TG5cWr iiW9tIXCWBu9FCBrSU0xmd76gRHQLWWjbyNyhmIO+sUQP+9Jm0hkrix6Hu6gPizJNrQ1fTOcwRXOa9jW XPHvXW9c+4Al2rMXu30ikftjj3ZjgdCnio85golW0m uy0UbPctE6QW9VyR78HN5ckxgCJYkfd1n/f8ynJ7+2hVGr+4fhGlC3QhZO9vZ+vH9zBWjchAAVj0+Jett yIW53YW7LyLz1fiLf1ZoHpoJ7pq6TJw9FPhfj6F558WHCNmIm3ErawRhgcAI9UCVbdXiI7Hy+/Y6fd8C 0Hj+rOKK7UYvP5Q2ta/LhsNL2Jlp6voJMgsrsXkUU2 MljEtLeg3vZqSDOnmBrwPAnGwqQeJmFzSzGapmSop0Jg6pUycaL+c6yJwynJQ6MaUs484Q6/ew+zKzJt QrpFhr0xAD+F4ELOGiDTMPQledeHfYxB89Tmr2/nhcRGesYD9qO+WwGWR9J+v/ii42/fJhfeN4/X1L6r 1dI0J61gqfMx2z840t5a379MYxCmvI9PCvx87DWR3V [file] [facility] [file] /mtEj92A3WRICev9WgynEYkIbWXcRTXsl0afOg17/xIXaDPv052hsKWHbwNCK6WbDDs6jQINBLNb/caddy master [file] Uz7A0hGXE/LOADING UNIT OPERATOR+vwWUMM/rn5iGKFhM/C5k67H3bNvKEKvETaX3Or/HEB25jMxbPhzU6WAOf5haZ2QJMT5 [file] /dCNdQSyVCoDIldyk2QEZULmv3EOGsCyAiL2tpJbMA4/DCNhpdbKimb+2vny8rihp/[place]/oUANZU7Uw2 [file] FULL TIME/Q3ojox0p6TMrfeuVBedlShP4EelmN5Cdr2UPkk [file] IpLvhIBwpOogzJfHBh7zp17Ed6w+motorcycle racer/QKRCG6V4fd8YvPDzTvb/JvlG5rS6efuem/6OS1eK/orajo5Y [file] pzkMSX73dJNbD0hqAIDFBumS5wuXLXvlLztF/l [file] Xn/science editor+FAIGu+f9LOMBuM45pcU9mGxoWgU/+BWNXtF5U/9MQbjdgc05/T/N/tvOAk+HrlO7u44UPXtC99 [file] d3QhFFEUeC01w7MD32DeROvYgqf4msZb6Zo1qyor2bFttA6Z4ow/ammtS9QvyvUgxtOyTTM74XERV/Visual Merchandising Associate oVMY+ZemhLu1vMu+zDB+Cuj13OvxuYE81hMcfkB95v ws1Nkz59/qi/5h+rsT0swFAUhUTwilEpn9FtFs7XbVTXGHwMG/tNvfD4aZb5pHfeYoprs8VCTSejyYHT by0E1/Oz4pRMRO5f+gBwQSe6+HyhH85KviTgPaO2EBQuCvrkJv9BLGOio6GTZXZK3Fvms7N9Cv+Pjvws N+CcQIOyHqh8oFADrxxaul0A6rsW++3WGZS7/8ZBJB 51Mp9QTy4vT8BpQXoms5JwtsLXrgocl+a50ipwbH7ZLFvoRB4qaEEkCDR0qTqEJ5d3xB4pCTnCGMkgFG kI65OuCtXrBT62vosOuszTEk+pj+klSZqEp+ikhgY1HrW0iCmA/W3LKBcWiRsTCw/zOpPDdgAbVVAhop sINmrx1kjuPpiqOtV8sdKmAsyxWiZ5nsuxlC9RVp81 aljKCa6TDBFrO36u6/tlMDMBa0/6CvaZvL3hm0uuloGDXOKdZVE22QM3NjfKWLgDwey1tXCxkKonzckA HyKV9mHvxPhSjiG/E5GvngDR+vng7aavOThNOhMRD9n0ClZ2HacP69JKxYN4kZGf84ww12s/OICYisFI v6bMco3gACeb8wrwnkSZvuuVdI8r0MlHYqC9SHaL5e Myriam/HCV5zAfC20bXuxk02+tg90T4mrsxa+S+4J0r5xPzHs8yksikWTvQFYR9HZsq68hnSzpXF/NdWuR/ [file] BlBCdA1lLl5Qz3SCAi5Q3wb4RU7U86423RkK4b3VT6 zpmAKutaVxumpSzOjyqqbVPWKBtbryLgQhAVkuj4FpLrH+o9MnJTNKhZLFWWltBcgSVIhPwV/kXLA+ZW doF+vplUD/7+Jose Alberto/23/E+tAciOB/5ME+1yXCP2HljnzXui2cMsxaLGumv1I/gkn8KNenaToObrn+Tzn7 [file] Jean Marie/OE/8nxhhNXiLWbkO+Yq4F+/Byv8okqZeR6wFF7 [file] 0Tn7PuzvM6ycQqNAvpOYt5ISe3ZNlmVLXCUa== ID Date Data Source [id number] 07/07/2019 12:59:00 PM EST [facility] Name Value Range Interpretation Code Description Data Jesusita rce(s) Supporting Document(s) COMPREHENSIVE METABOLIC PANEL [facility] COMPREHENSIVE METABOLIC PANEL Sodium [Moles/volume] in Serum or Plasma 141 mEq/L 134 - 153 [facility] Potassium [Moles/volume] in Serum or Plasma 4.0 mEq/L 3.6 - 5.0 [facility] Chloride [Moles/volume] in Serum or Plasma 103 mEq/L 98 - 107 [facility] Carbon dioxide, total [Moles/volume] in Serum or Plasma 24 MEQ/L 22 - 30 [facility] Glucose [Mass/volume] in Serum or Plasma 194 MG/DL 65 - 110 [facility] BUN 10 MG/DL 7 - 21 [facility] Creatinine [Mass/volume] in Serum or Plasma 0.6 MG/DL 0.7 - 1.5 L [facility] BUN/CREAT 17 8 - 27 [facility] Protein [Mass/volume] in Serum or Plasma 6.5 G/DL 6.3 - 8.2 [facility] Albumin [Mass/volume] in Serum or Plasma 3.2 G/DL 3.9 - 5.0 L [facility] Globulin [Mass/volume] in Serum by calculation 3.3 GM/DL 2.4 - 3.2 H [facility] A/G RATIO 1.0 0.8 - 2.0 [facility] Calcium [Mass/volume] in Serum or Plasma 9.6 MG/DL 8.4 - 10.2 [facility] Bilirubin.total [Mass/volume] in Serum or Plasma 0.9 MG/DL 0.2 - 1.3 [facility] Alkaline phosphatase [Enzymatic activity/volume] in Serum or Plasma 81 U/L 38 - 126 [facility] Aspartate aminotransferase [Enzymatic activity/volume] in Serum or Plasma 52 U/L 5 - 40 [facility] Alanine aminotransferase [Enzymatic activity/volume] in Seru m or Plasma 32 U/L 7 - 56 [facility] Anion gap 3 in Serum or Plasma 14.0 mmol/L 8.0 - 16.0 [facility] AGE 59 yrs [facility] al NON-AA GFR >60 mL/min [facility] AFR AMER GFR >60 mL/min [facility] Ho spital Male GFR In terprentation [...] >32 mL/min Normal ID Date Data Source [id number] 07/07/2019 12:47:00 PM [facility] Name Value Range Interpretation Code Description Data Jesusita rce(s) Supporting Document(s) Prothrombin time (PT) 15.8 SECONDS 11.0 - 15.[address] [facility] INR in Platelet poor plasma by Coagulation assay 1.24 0.93 - 1. 23 H [facility] \\BLDo\\INR INTERPRETATION\\BLDx\\ Therapeutic range for Coumadin and related oral anticoagulants. - International Normalized Ratio (INR): 2.0 - 3.0 for Venous Thrombosis, Pulmonary Embolus, Tissue heart valves, Acute [place], Atrial Fibrillation, Valvular heart disease and recurrent Systemic Embolism. -International Normalized Ratio (INR): 2.5 - 3.5 for Mechanical Prosthetic valve. ID Date Data Source [id number] 07/07/2019 12:41:00 PM [facility] Name Value Range Interpretation Code Description Data Jesusita rce(s) Supporting Document(s) CBC NO DIFF [facility] ital COMPLETE BLOOD COUNT Leukocytes [#/volume] in Blood by Automated count 4.2 10^3/uL 4.2 - 1 1.0 [facility] Erythrocytes [#/volume] in Blood by Automated count 4.40 10^6/uL 4. 20 - 5.40 [facility] Hemoglobin [Mass/volume] in Blood 12.1 g/dL 12.0 - 16.0 [facility] Hematocrit [Volume Fraction] of Blood by Automated count 37.5 % 3 7.0 - 47.0 [facility] Erythrocyte mean corpuscular volume [Entitic volume] by Auto mated count 85.2 fL 81.0 - 101 [facility] Erythrocyte mean corpuscular hemoglobin [Entitic mass] by Automated count 27.5 pg 27.0 - 34.0 [facility] Erythrocyte mean corpuscular hemoglobin concentration [Mass/volume] by Automated count 32.3 g/dL 31.0 - 36.0 [facility] Erythrocyte distribution width [Ratio] by Automated count 15.3 % 11.5 - 14.5 H [facility] Platelets [#/volume] in Blood by Automated count 75 10^3/uL 150 - 450 L [facility] Platelet mean volume [Entitic volume] in Blood by Automated count 10.5 fL 7.4 - 10.4 H [facility] Procedure Social History Code Duration Value Status Description Data Source(s ) Smoking 06/10/2020 12:00:00 AM EST Never Smoked A Pipe complet ed Never Smoked A Pipe MEDENT ([facility]) Smoking 05/20/2020 12:00:00 AM EDT Never Smoker completed Never S moker eCW1 ([facility]) Vital Signs ID Date Data Source UNK Name Value Range Interpretation Code Description Data Source(s) Body surface area Derived from formula 1.88 m2 1.88 m2 [facility] ([facility]) Body mass index (BMI) [Ratio] 39.8 kg/m2 39.8 k g/m2 [facility] ([facility]) Body height 60 [in_i] 60 [in_i] [facility] ([facility]) 5'0" Body weight 92.534 kg 92.534 kg [facility] ([facility]) Body weight 204.00 [lb_av] 204.00 [lb_av] MEDEN T ([facility]) Body mass index (BMI) [Ratio] 47.46 kg/m2 47.46 kg/m2 [facility] ([facility]) Body height 59 [in_i] 59 [in_i] W1 ([facility]) Body weight 106.59 kg 106.59 kg [facility] ([facility]) Body weight 235 [lb_av] 235 [lb_av] eCW1 ([facility]) Patient Treatment Plan of Care Planned Activity Planned Date Details Description Data Source (s) medroxyprogesterone acetate 10 MG Oral Tablet [Provera ] 12/27/2019 12:00:00 AM EDT eCW1 ([facility]) medroxyprogesterone acetate 10 MG Oral Tablet [Provera ] 12/27/2019 12:00:00 AM EDT eCW1 ([facility])
[2020-09-04] MEDS ORDERED: HEPARIN DRIP 25,000 UNITS in IV 1 EA IV SCH (18:00)
[2020-09-04] MEDS ORDERED: HEPARIN SOD (PORCINE) 5000UNITS/ML 1ML VIAL/SYRINGE IV ONE (18:00)
[2020-09-04] MEDS ORDERED: VANCOMYCIN HCL 1,000 MG, VIAL MATE ADAPTER 1 EACH in D5W 250 ML IV ONE (18:30)
[2020-09-04 18:51] VITALS: BP 167/81
--- NOTE | 2020-09-04 19:01 | HPEPDOC ---
General Date of Admission Sep 04, 2020 Date of Service: Sep 04, 2020 Chief Complaint The patient is a 60-year-old female admitted with a reason for visit of abdominal cellulitis and right leg pain Source: Patient, RN/MD History of Present Illness Ms. 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 Her right leg pain and swelling started about 3 weeks ago. Denies being sedentary and denies long car rides. She is last admitted in June 2020 for ascites. She says despite the diuretics, her right leg continued to swell. In the ED, ultrasound of the right leg demonstrated extensive occlusive and nonocclusive DVT in the common femoral vein through popliteal vein. CT angiogram of chest was negative for pulmonary embolus. Patient reports having esophageal varices, but denies any history of GI bleed or intracranial hemorrhage. Otherwise about 3 days ago, she started having dyspnea and abdominal pain, swelling, and erythema. She was started on Augmentin for suspected cellulitis. It did not improve with Augmentin. Abdominal pain was located in the lower abdomen. It continued to be tender to the touch. No signs of open wounds or dr jonathan, but patient reported that there had been clear drainage. CT of abdomen and pelvis demonstrated cellulitis pattern in the abdominal panniculus somewhat more prominent than the prior study. Otherwise demonstrated mild ileus of the bowel and increased ascites. She was having diarrhea while on the Augmentin and took Imodium which may have caused this finding. Otherwise, she started having exertional dyspnea which started 3 days ago. The same time of abdominal swelling. Denies chest pain or nausea. Reported dry mouth which lead her to have increased fluid intake. Patient will be admitted for cellulitis of the abdomen, right leg DVT, and ascites Home Medications Scheduled Amoxicillin/Potassium Clav (Amox-Clav 875-125 mg Tablet) 1 Each Tablet, 1 T PO BID, (Reported) Cyanocobalamin (Vitamin B-12) (Vitamin B-12) 500 Mcg Tablet, 500 MCG PO DAILY, (Reported) Dulaglutide (Trulicity) 1.5 Mg/0.5 Ml Pen.injctr, 1.5 MG SC 1XWK, (Reported) THURSDAYS Ferrous Sulfate (Ferrous Sulfate) 325 Mg Tablet, 325 MG PO DAILY, (Reported) Furosemide (Furosemide) 40 Mg Tablet, 40 MG PO BID, (Reported) Insulin Glargine,Hum.rec.anlog (Basaglar Kwikpen U-100) 100 Unit/1 Ml Insuln.pen, 25 UNITS SQ QHS, (Reported) Magnesium Oxide (Magnesium) 400 Mg Capsule, 400 MG PO DAILY, (Reported) Medroxyprogesterone Acetate (Medroxyprogesterone Acetate) 10 Mg Tablet, 10 MG PO QHS, (Reported) Metformin HCl (Metformin HCl) 1,000 Mg Tablet, 1,000 MG PO BID, (Reported) Multivitamin with Minerals (Hair, Skin and Nails) 1 Each Tablet, 1 TAB PO DAILY, (Reported) Rifaximin (Xifaxan) 550 Mg Tablet, 550 MG PO BID, (Reported) Sitagliptin Phos/Metformin HCl (Janumet 50-1,000 mg Tablet) 1 Each Tablet, 1 TAB PO BID, (Reported) Scheduled PRN Spironolactone (Spironolactone) 50 Mg Tablet, 50 MG PO BID PRN for EDEMA, (Reported) Allergies Coded Allergies: latex (Verified Allergy, Mild, itching, 03/26/19) Past Medical History Medical History 1. GILL cirrhosis 2. IDDM 3. Simple and focal complex endometrial hyperplasia 4. History of bilateral lower extremity cellulitis 5. History of esophageal varices 6. History of GI bleed from Ulcer Surgical History 1. Cholecystectomy 1991 2. Status post left knee arthroplasty 3. Colonoscopy 2013 4. EMB 2018 5. Hysteroscopy and D&C with polypectomy 2018 Family History Father: at 72 yo. History of NE, hypertension, CVA, colon cancer, and prostate cancer Mother: at 68 yo. Histoyr of NE, hypertension, diabetes, breast cancer Social History * Smoker: non-smoker Alcohol: Denies Drugs: denies A-FIB/CHADSVASC A-FIB History Current/History of A-Fib/PAF?: No Review of Systems Constitutional: Denies: Chills, Fever Eyes: Denies: Vision change ENT: Reports: Other Symptoms (Reports dry mouth); Denies: Sore Throat Skin: Reports: Other (Erythema and tenderness located in the lower abdomen) Pulmonary: Reports: Dyspnea (exertional and started when abd started to swell) Cardiovascular: Reports: Lt Headedness (started today); Denies: Chest Pain Gastrointestinal: Reports: Abdominal Pain (Lower abdomen), Diarrhea; Denies: Nausea Genitourinary: Denies: Dysuria Hematologic: Reports: Bruising (Reports easy bruisability) Endocrine: Reports: Polydipsia Psych: Denies: Anxiety, Depression Physical Examination General Exam: Positive: Alert, Cooperative, No Acute Distress Eye Exam: Positive: EOMI; Negative: Sclera icteric ENT Exam: Positive: Atraumatic Neck Exam: Positive: Supple Chest Exam: Positive: Clear to auscultation; Negative: Rales, Rhonchi, Wheezing Heart Exam: Positive: Tachycardic, Regular Rhythm Abdomen Exam: Positive: Normal bowel sounds, Soft, Tenderness (lower abdomen), Other (Obese) Extremity Exam: Positive: Edema (right leg), Tenderness (right leg) Skin Exam: Positive: Rash (Lower half of abdomen) Neuro Exam: Positive: Cranial Nerves 3-12 NL Psych Exam: Positive: Mental status NL, Mood NL Vital Signs Vital Signs Date Time Temp Pulse Resp B/P (MAP) Pulse Ox O2 Delivery O2 Flow Rate FiO2 09/04/20 14:32 09/04/20 13:54 98.4 104 20 98 Room Air Laboratory Data Labs 24H Laboratory Tests 2 09/04/20 14:59: Prothrombin Time 16.1H, Prothromb Time International Ratio 1.26, Activated Partial Thromboplast Time 28.6, D-Dimer, Quantitative > 4000H, Anion Gap 7L, Glomerular Filtration Rate > 60.0, Lactic Acid Level 3.9*H, Calcium Level 9.3, Total Bilirubin 1.2H, Direct Bilirubin 0.4H, Aspartate Amino Transf (AST/SGOT) 61H, Alanine Aminotransferase (ALT/SGPT) 68, Alkaline Phosphatase 130H, Total Creatine Kinase 63, Creatine Kinase MB < 1.0, Creatine Kinase MB Relative Index 1.59, Troponin I < 0.02, C-Reactive Protein, Quantitative 3.36H, SQ-Adg-E-Type Natriuretic Peptide 275H, Total Protein 7.5, Albumin 2.8L, Albumin/Globulin Ratio 0.6L 09/04/20 15:00: Immature Granulocyte % (Auto) 1.5, Neutrophils (%) (Auto) 74.2H, Lymphocytes (%) (Auto) 14.9L, Monocytes (%) (Auto) 7.0H, Eosinophils (%) (Auto) 1.8, Basophils (%) (Auto) 0.6, Neutrophils # (Auto) 5.0, Lymphocytes # (Auto) 1.0L, Monocytes # (Auto) 0.5, Eosinophils # (Auto) 0.1, Basophils # (Auto) 0.0, Nucleated Red Blood Cells % (auto) 0.0, Immature Platelet Fraction 2.1, Erythrocyte Sedimentation Rate 49H, POC Glucose (Misc Panel) 165H, POC Sodium (Misc Panel) 140, POC Potassium (Misc Panel) 3.8, POC Chloride (Misc Panel) 106, POC Total CO2 (Misc Panel) 22.0L, POC Blood Urea Nitrogen (Misc Panel 15, POC Ionized Calcium (Misc Panel) 4.9, POC Creatinine (Misc Panel) 0.6, POC Hematocrit (Misc Panel) 35.0L 09/04/20 15:07: POC Beta HCG, Quantitative < 5.0 09/04/20 15:35: CBC/BMP Laboratory Tests 09/04/20 14:59 09/04/20 15:00 Assessment/Plan Ms. 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 She was started on Augmentin for the cellulitis, but it did not respond. We will start her on vancomycin and do a MRSA screen. If MRSA screen is negative, can consider switching to cefazolin. In addition she also had right leg pain and found to have an acute DVT. May need to touch base with her wildlife biology internship or touch with with our gaming cage cashier about anticoagulation in the setting of esophageal varices. She denies history of GI bleeds or intracranial hemorrhage. Looking at the chart, it mentions she has had a GI bleed from an ulcer. Will hold off on anticoagulation Otherwise, imaging suggests increased ascites. She denies adding extra salt, but has been drinking more fluid than normal due to dry mouth. Will start her on fluid restriction and continue Lasix and Aldactone. Will order US paracentesis to see if it is drainable. Plan / VTE VTE Prophylaxis Ordered?: No VTE Exclusion Mechanical Proph: Manas Lower Ex DVT VTE Exclusion Pharmacological: Bleeding Risk Plan Plan 1. Cellulitis of lower abdomen -Erythematous, tender, and swollen -Failed outpatient augmentin -Will start on Vancomycin. SCreen for MRSA. If negative, can consider cefazolin instead 2. Right leg DVT -History of varices and GI bleeding from ulcers in the past -Her wildlife biology internship does frequent esophageal dilatation for patient. Will need to touch base with her about anticoagulation -May need filter if cannot be on anticoagulation 3. Increased ascites -Increased thirst and has increased water intake -Fluid restriction 2L -Continue Lasix and Aldactone -Will try for US paracentesis 4. Diabetes mellitus -Basal insulin 25units qHS -Sliding scale insulin AC and HS 5. Thrombocytopenia -Secondary to splenomegaly -Monitor 6. DVT ppx -Pending discussion with her wildlife biology internship. Patient has history of esophageal varices and GI bleed from ulcer. Patient may need a filter ZORA ALBRIGHT DO Sep 04, 2020 16:32
[2020-09-04] MEDS: FUROSEMIDE 40 MG TAB PO SCH (19:44)
[2020-09-04] MEDS: HumaLOG INSULIN (NovoLOG) PER UNIT SC SCH (20:07)
[2020-09-04] MEDS: rifAXIMin 550 MG TAB (XIFAXAN) PO SCH (20:47)
[2020-09-04] MEDS: LEVEMIR (INSULIN DETEMIR) 1 UNITS/0.01ML SC SCH ×2 (20:47→20:51)
[2020-09-04] MEDS: medroxyPROGESTERone 5MG TABLET PO SCH (20:47)
--- NOTE | 2020-09-04 21:03 | ECGEPIP ---
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
[2020-09-04] MEDS ORDERED: DICYCLOMINE 10 MG CAP PO ONE (21:30)
[2020-09-04] MEDS ORDERED: SIMETHICONE 80 MG CHEW TAB PO PRN (21:30)
[2020-09-04] MEDS ORDERED: VANCOMYCIN HCL 1,000 MG, VIAL MATE ADAPTER 1 EACH in D5W 250 ML IV SCH (22:00)
[2020-09-05] VITALS (7 sets, daily range): BP systolic 122–161; BP diastolic 60–75
[2020-09-05] MEDS ORDERED: diphenhydrAMINE 25MG CAP PO ONE (00:15)
[2020-09-05 05:44] LABS: HEMATOCRIT 33.7 % (36.0-47.0); HEMOGLOBIN 10.6 g/dl (12.0-15.5); MEAN CORPUSCULAR HEMOGLOBIN 26.8 pg (27.0-33.0); MEAN CORPUSCULAR HGB CONC 31.5 g/dl (32.0-36.5); MEAN CORPUSCULAR VOLUME 85.3 fl (80.0-96.0); RED BLOOD COUNT 3.95 10^6/uL (4.00-5.40); WHITE BLOOD COUNT 5.7 10^3/uL (4.0-10.0)
[2020-09-05 05:45] LABS: PLATELET COUNT, AUTOMATED 76 10^3/uL (150-450)
[2020-09-05 06:14] LABS: ALBUMIN 2.6 GM/DL (3.2-5.2); ALT/SGPT 58 U/L (12-78); BILIRUBIN,TOTAL 0.9 MG/DL (0.2-1.0); BLOOD UREA NITROGEN 12 MG/DL (7-18); CALCIUM LEVEL 8.6 MG/DL (8.5-10.1); CARBON DIOXIDE LEVEL 27 MEQ/L (21-32); CHLORIDE LEVEL 104 MEQ/L (98-107); CREATININE FOR GFR 0.71 MG/DL (0.55-1.30); GLOMERULAR FILTRATION RATE > 60.0 (>51); GLUCOSE, FASTING 117 MG/DL (70-100); POTASSIUM SERUM 3.7 MEQ/L (3.5-5.1); SODIUM LEVEL 140 MEQ/L (136-145); TOTAL PROTEIN 6.6 GM/DL (6.4-8.2)
[2020-09-05] MEDS ORDERED: SLF 3 ML SYR IV PRN (08:00)
[2020-09-05] MEDS: ceFAZolin SOD 1 GM in D5W MINI-BAG PLUS 50 ML IV SCH ×2 (08:12→17:25)
[2020-09-05] MEDS: MAGNESIUM OXIDE 400 MG TAB (MAG-OX) PO SCH (08:13)
[2020-09-05] MEDS: rifAXIMin 550 MG TAB (XIFAXAN) PO SCH ×2 (08:13→20:49)
[2020-09-05] MEDS: SPIRONOLACTONE 50 MG TAB PO SCH (08:13)
[2020-09-05] MEDS: FERROUS SULFATE 325MG TAB PO SCH (08:13)
[2020-09-05] MEDS: HumaLOG INSULIN (NovoLOG) PER UNIT SC SCH ×4 (08:13→20:49)
[2020-09-05] MEDS: CYANOCOBALAMIN 500 MCG TAB PO SCH (08:13)
[2020-09-05] MEDS: MULTIVITAMINS/MINERALS THERAP 1 TAB PO SCH (08:14)
[2020-09-05] MEDS: FUROSEMIDE 40 MG TAB PO SCH ×2 (08:14→17:25)
[2020-09-05] MEDS ORDERED: ENOXAPARIN 100MG/1ML SYRINGE (J1650 PER 10MG) SC SCH (09:00)
[2020-09-05] MEDS: SLF 3 ML SYR IV SCH ×2 (13:03→22:00)
[2020-09-05] MEDS ORDERED: HEPARIN SOD (PORCINE) 5000UNITS/ML 1ML VIAL/SYRINGE IV PRN (15:00)
[2020-09-05] MEDS ORDERED: HEPARIN SOD (PORCINE) 5000UNITS/ML 1ML VIAL/SYRINGE IV ONE ×2 (15:00→22:45)
[2020-09-05] MEDS ORDERED: SODIUM BICARBONATE 8.4% INJ 50MEQ 50 ML VIAL As Ordered ONE (15:46)
[2020-09-05 15:48] LABS: C REACTIVE PROTEIN QUANTITATIV 2.24 MG/DL (0.00-0.30)
[2020-09-05 16:53] LABS: SOURCE, BODY FLUID ASCITES
[2020-09-05 16:54] LABS: APPEARANCE, BODY FLUID CLOUDY (CLEAR); ASCITES FL COLOR AMBER (COLORLESS); SPEC. GRAVITY BODY FLUIDS 1.012 (NOT ESTABLISHED)
[2020-09-05 16:58] LABS: ERYTHROCYTE SEDIMENTATION RATE 32 mm/hr (0-30)
--- NOTE | 2020-09-05 17:06 | REP ---
INDICATION: Ascities The patient has a history of ascites COMPARISON: None. TECHNIQUE: The procedure was performed by PHOEBE Damon, under the direct supervision of Dr. Curtis The risks and benefits of the procedure were explained to the patient and an informed consent was obtained both verbally and written. Directly prior to the start of the procedure a formal time-out was completed in the procedure room. The largest pocket of fluid was localized in the right flank using ultrasound guidance. The skin was prepped and draped in a sterile fashion. Eleven ML of buffered lidocaine was used as a local anesthetic. An 8-Slovak multi side-hole catheter was inserted using trocar technique. FINDINGS: 2550 mL of pink ascites was removed in total, 1250 mL was sent to the lab for further analysis, and the rest was discarded. The patient tolerated the procedure well and there were no immediate complications. After the appropriate amount of monitored convalescence, the patient was discharged from the department. IMPRESSION: Ultrasound-guided paracentesis with removal of 2550 mL of pink ascites. <Electronically signed by Barbara Chen > 09/05/20 1643 <Electronically signed by Jack Curtis > 09/05/20 1702
[2020-09-05 17:36] LABS: SOURCE, BODY FLUID ALBUMIN ASCITES; SOURCE, BODY FLUID GLUCOSE ASCITES; SOURCE, BODY FLUID TOT PROTEIN ASCITES; TOTAL PROTEIN, BODY FLUID 1.3 G/DL (NOT ESTABLISHED)
[2020-09-05] MEDS: medroxyPROGESTERone 5MG TABLET PO SCH (20:48)
[2020-09-05] MEDS: LEVEMIR (INSULIN DETEMIR) 1 UNITS/0.01ML SC SCH (20:50)
--- NOTE | 2020-09-05 20:50 | IPNPDOC ---
Subjective Date Seen The patient was seen on 09/05/20. Subjective Chief Complaint/HPI Ms. 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 She was found to have right leg DVT Overnight, she developed a red rash across her chest from the vancomycin. Her MRSA screen was negative. She switched to cefazolin. This morning, she denies any chest pain or dyspnea. The rash on her abdomen has improved. Less tender and not as erythematous. Still has tenderness in right leg. I reached out to Dr. Parvin Sepulveda (GI and graduate intern in [place]). Last EGD in 2019 which was negative for esophageal varices or gastric ulcers, a positive for GAVE. Suggested that we do an EGD and treat the GAVE. I spoke with about EGD. GAVE will reoccur even after ablation and patient would need to be off anticoagulation for 2 to [address] Leon recommended a filter to be placed. I spoke with Dr. Leon about filter placement. Plan for filter placement on Saturday. Dr. Leon recommended starting patient on anticoagulation in the meantime. I discussed this with the patient. I told her that she is at a risk for bleeding as well. I consented her for blood in case if needed in the future. Objective Physical Examination General Exam: Positive: Alert, Cooperative, No Acute Distress Eye Exam: Positive: EOMI; Negative: Sclera icteric ENT Exam: Positive: Atraumatic Neck Exam: Positive: Supple Chest Exam: Positive: Clear to auscultation; Negative: Rales, Rhonchi, Wheezing Heart Exam: Positive: Tachycardic, Regular Rhythm Abdomen Exam: Positive: Normal bowel sounds, Soft, Tenderness (lower abdomen), Other (Obese) Extremity Exam: Positive: Edema (right leg), Tenderness (right leg) Skin Exam: Positive: Rash (Lower half of abdomen) Neuro Exam: Positive: Cranial Nerves 3-12 NL Psych Exam: Positive: Mental status NL, Mood NL Assessment /Plan Assessment Ms. 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 She was started on Augmentin for the cellulitis, but it did not respond. We will start her on vancomycin and do a MRSA screen. She developed a red rash across chest from the vancomycin. Vancomycin was discontinued. Since MRSA screen was negative, patient was started on cefazolin instead. I touched base with her graduate intern, Dr.Sara Sepulveda. She recommended treating GAVE before anticoagulation. I spoke with our GI, Dr. Leon. Ablation of GAVE would require 2 to 3 weeks off anticoagulation afterwards. GAVE will also reappear after ablation. Recommended filter. Spoke with Dr. Leon. Plan for filter placement on Saturday. Until then put on anticoagulation. Patient will be on heparin drip. Patient has consented for blood. Plan to attempt a paracentesis on 09/05/2020 Plan/VTE VTE Prophylaxis Ordered?: Yes Plan 1. Cellulitis of lower abdomen -Erythematous, tender, and swollen -Failed outpatient augmentin -MRSA screen negative On cefazolin Appears to be improving 2. GAVE -Patient's graduate intern, Dr. Parvin Sepulveda last did EGD in 2019. Negative for esophageal varices and gastric ulcers. Positive for GAVE Recommended treating GAVE prior to anticoagulation GI, Dr. Leon, recommends against treating GAVE as patient would need to be off anticoagulation for 2-3 weeks after ablating GAVE. GAVE will also reappear. Recommend filter placement instead 2. Right leg DVT -History of varices and GI bleeding from ulcers in the past -Plan for filter placement on Saturday -On anticoagulation until Saturday. Consented for blood incase of bleed 3. Increased ascites -Increased thirst and has increased water intake -Fluid restriction 2L -Continue Lasix and Aldactone -Will try for US paracentesis today 4. Diabetes mellitus -Basal insulin 25units qHS -Sliding scale insulin AC and HS 5. Thrombocytopenia -Secondary to splenomegaly -Monitor 6. DVT ppx -On heparin drip VS, I&O, 24H, Fishbone Vital Signs/I&O Vital Signs Date Time Temp Pulse Resp B/P (MAP) Pulse Ox O2 Delivery O2 Flow Rate FiO2 09/05/20 17:27 98.1 91 18 127/60 (82) 99 Room Air I&O- Last 24 Hours up to 6 AM 09/05/20 06:00 Intake Total 420 ml Output Total 715 ml Balance -295 ml Laboratory Data 24H LABS Laboratory Tests 2 09/04/20 21:45: Methicillin-Resist S.aureus DNA PCR NOT DETECTED 09/04/20 21:46: Urine Color YELLOW, Urine Appearance CLEAR, Urine pH 5.0, Urine Specific [place] 1.018, Urine Protein NEGATIVE, Urine Glucose (UA) NEGATIVE, Urine Ketones NEGATIVE, Urine Blood NEGATIVE, Urine Nitrite NEGATIVE, Urine Bilirubin NEGATIVE, Urine Urobilinogen 0.2, Urine Leukocyte Esterase NEGATIVE, Urine WBC (Auto) 2, Urine RBC (Auto) 1, Urine Hyaline Casts (Auto) 3, Urine Bacteria (Auto) NEGATIVE, Urine Squamous Epithelial Cells 1, Urine Sperm (Auto) 09/05/20 05:13: Nucleated Red Blood Cells % (auto) 0.0, Erythrocyte Sedimentation Rate 32H, Anion Gap 9, Glomerular Filtration Rate > 60.0, Calcium Level 8.6, Total Bilirubin 0.9, Aspartate Amino Transf (AST/SGOT) 51H, Alanine Aminotransferase (ALT/SGPT) 58, Alkaline Phosphatase 110, C-Reactive Protein, Quantitative 2.24H, Total Protein 6.6, Albumin 2.6L, Albumin/Globulin Ratio 0.7L 09/05/20 11:58: Bedside Glucose (Misc Panel) 221H 09/05/20 16:05: Body Fluid Source ASCITES, Body Fluid Color NIC, Body Fluid Appearance CLOUDY, Body Fluid Specific [place] 1.012, Body Fluid WBC (Auto) 699H, Body Fluid RBC (Auto) 18, Body Fluid Mononuclear Cells % Auto 85.7H, Fluid Polymorphonuclear Cell % Auto 14.3H, Body Fluid Glucose Source ASCITES, Body Fluid Glucose 281, Body Fluid Protein Source ASCITES, Body Fluid Total Protein 1.3, Body Fluid Albumin Source ASCITES, Body Fluid Albumin 0.7 09/05/20 16:26: Activated Partial Thromboplast Time 29.6 09/05/20 17:27: Bedside Glucose (Misc Panel) 264H CBC/BMP Laboratory Tests 09/05/20 05:13 Microbiology Microbiology 09/05/20 Acid Fast Stain, Received Pending 09/05/20 Mycobacterial Culture, Received Pending 09/05/20 Fungal Smear, Received Pending 09/05/20 Fungal Culture, Received Pending 09/05/20 Gram Stain, Received Pending 09/05/20 Body Fluid Culture, Received Pending ZORA ALBRIGHT DO Sep 05, 2020 20:50
[2020-09-05] MEDS: HEPARIN DRIP 25,000 UNITS in IV 1 EA IV SCH (22:52)
[2020-09-06] VITALS: BP 123/58
[2020-09-06] MEDS: ceFAZolin SOD 1 GM in D5W MINI-BAG PLUS 50 ML IV SCH ×4 (00:16→23:38)
[2020-09-06 04:00] VITALS: BP 126/60
[2020-09-06 04:32] LABS: HEMATOCRIT 31.9 % (36.0-47.0); HEMOGLOBIN 10.1 g/dl (12.0-15.5); MEAN CORPUSCULAR HEMOGLOBIN 26.9 pg (27.0-33.0); MEAN CORPUSCULAR HGB CONC 31.7 g/dl (32.0-36.5); MEAN CORPUSCULAR VOLUME 84.8 fl (80.0-96.0); RED BLOOD COUNT 3.76 10^6/uL (4.00-5.40); WHITE BLOOD COUNT 4.9 10^3/uL (4.0-10.0)
[2020-09-06 04:38] LABS: PLATELET COUNT, AUTOMATED 80 10^3/uL (150-450)
[2020-09-06 05:43] LABS: ALBUMIN 2.4 GM/DL (3.2-5.2); ALT/SGPT 45 U/L (12-78); BILIRUBIN,TOTAL 0.6 MG/DL (0.2-1.0); BLOOD UREA NITROGEN 13 MG/DL (7-18); CALCIUM LEVEL 8.3 MG/DL (8.5-10.1); CARBON DIOXIDE LEVEL 28 MEQ/L (21-32); CHLORIDE LEVEL 106 MEQ/L (98-107); GLOMERULAR FILTRATION RATE > 60.0 (>51); GLUCOSE, FASTING 301 MG/DL (70-100); POTASSIUM SERUM 3.8 MEQ/L (3.5-5.1); SODIUM LEVEL 140 MEQ/L (136-145); TOTAL PROTEIN 6.1 GM/DL (6.4-8.2)
[2020-09-06] MEDS: SLF 3 ML SYR IV SCH ×3 (05:53→22:46)
[2020-09-06 08:00] VITALS: BP 146/65
[2020-09-06] MEDS: CYANOCOBALAMIN 500 MCG TAB PO SCH (08:09)
[2020-09-06] MEDS: SPIRONOLACTONE 50 MG TAB PO SCH (08:09)
[2020-09-06] MEDS: FERROUS SULFATE 325MG TAB PO SCH (08:09)
[2020-09-06] MEDS: HumaLOG INSULIN (NovoLOG) PER UNIT SC SCH ×4 (08:09→20:48)
[2020-09-06] MEDS: rifAXIMin 550 MG TAB (XIFAXAN) PO SCH ×2 (08:09→20:48)
[2020-09-06] MEDS: MAGNESIUM OXIDE 400 MG TAB (MAG-OX) PO SCH (08:10)
[2020-09-06] MEDS: FUROSEMIDE 40 MG TAB PO SCH ×2 (08:20→18:46)
[2020-09-06] MEDS: MULTIVITAMINS/MINERALS THERAP 1 TAB PO SCH (08:20)
[2020-09-06 10:29] LABS: HEMATOCRIT 33.7 % (36.0-47.0); HEMOGLOBIN 10.7 g/dl (12.0-15.5); MEAN CORPUSCULAR HGB CONC 31.8 g/dl (32.0-36.5); MEAN CORPUSCULAR VOLUME 85.1 fl (80.0-96.0); RED BLOOD COUNT 3.96 10^6/uL (4.00-5.40); WHITE BLOOD COUNT 5.1 10^3/uL (4.0-10.0)
[2020-09-06 10:33] LABS: PLATELET COUNT, AUTOMATED 83 10^3/uL (150-450)
--- NOTE | 2020-09-06 10:35 | IPNPDOC ---
Date Seen The patient was seen on 09/06/20. Progress Note SUBJECTIVE: Patient denies any abdominal pain, nausea, vomiting Afebrile overnight and improved redness in the abdomen. OBJECTIVE PHYSICAL EXAMINATION: VITAL SIGNS: Please see below. GENERAL: No jaundice or icterus no respiratory distress HEENT: No JVD, thyromegaly CARDIOVASCULAR: Regular rate rhythm, S1, S2. RESPIRATORY: Air entry is equal bilaterally. Clear to auscultation ABDOMINAL soft, slightly tender in left lower abdomen, obese, positive bowel sounds 4 quadrants EXTREMITIES: Positive edema bilaterally LABORATORY DATA, IMAGING STUDIES, MICROBIOLOGY: Please see below. ASSESSMENT: A 60-year-old female with history of nonalcoholic steatohepatitis, GAVE, Liver cirrhosis, usually followed by her needle loom tender, Dr.Sarah Sepulveda in [place], insulin-dependent diabetes admitted on 09/05/2020 for abdominal cellulitis and right lower extremity cellulitis PROBLEMS: Bilateral lower abdomen cellulitis -Improving on IV cefazolin with no fever or white count and decreasing erythema and tenderness -CT abdomen and pelvis 09/04/2020. Diffuse cellulitis in the abdominal panniculus more prominent than on the previous study, and I'll Right lower extremity DVT -On IV heparin drip awaiting IVC filter placement -No signs of acute GI bleed at this time, despite history of variceal bleeding and ulcers -Interventional radiology consulted for IVC filter placement on 09/07/2020 GILL/decompensated Liver Cirrhosis with Recurrent Ascites -Status post paracentesis. 09/05/2020 with 2.550 L removed Gastric antral vascular ectasia -Dr. Lina Sepulveda EGD in 2019 was negative for esophageal varices or gastric ulcers, but recommended ablation. -Per GI, Dr. Leon, vascular ectasias usually recur even after ablation. Patient will need to be 2-3 weeks off anticoagulation after ablation, thereby recommending IVC filter to be placed first. -No signs of active GI bleed at this time IDDM2 Thrombocytopenia due to chronic liver cirrhosis 6 mm noncalcified pulmonary nodule, right middle lobe -Outpatient follow-up in 6 months with a chest CT Disposition IVC filter to be placed on Saturday. VS, I&O, 24H, Fishbone Vital Signs/I&O Vital Signs Date Time Temp Pulse Resp B/P (MAP) Pulse Ox O2 Delivery O2 Flow Rate FiO2 09/06/20 08:00 97.8 95 18 146/65 (92) 93 Room Air I&O- Last 24 Hours up to 6 AM 09/06/20 06:00 Intake Total 120 ml Output Total 2400 ml Balance -2280 ml Laboratory Data 24H LABS Laboratory Tests 2 09/05/20 11:58: Bedside Glucose (Misc Panel) 221H 09/05/20 16:05: Body Fluid Source ASCITES, Body Fluid Color NIC, Body Fluid Appearance CLOUDY, Body Fluid Specific [place] 1.012, Body Fluid WBC (Auto) 699H, Body Fluid RBC (Auto) 18, Body Fluid Mononuclear Cells % Auto 85.7H, Fluid Polymorphonuclear Cell % Auto 14.3H, Body Fluid Glucose Source ASCITES, Body Fluid Glucose 281, Body Fluid Protein Source ASCITES, Body Fluid Total Protein 1.3, Body Fluid Albumin Source ASCITES, Body Fluid Albumin 0.7 09/05/20 16:26: Activated Partial Thromboplast Time 29.6 09/05/20 17:27: Bedside Glucose (Misc Panel) 264H 09/05/20 20:37: Bedside Glucose (Misc Panel) 302H 09/06/20 03:57: Nucleated Red Blood Cells % (auto) 0.0, Immature Platelet Fraction 1.7, Activated Partial Thromboplast Time 154.2*H, Anion Gap 6L, Glomerular Filtration Rate > 60.0, Calcium Level 8.3L, Total Bilirubin 0.6, Aspartate Amino Transf (A ST/SGOT) 39H, Alanine Aminotransferase (ALT/SGPT) 45, Alkaline Phosphatase 114, Total Protein 6.1L, Albumin 2.4L, Albumin/Globulin Ratio 0.6L CBC/BMP Laboratory Tests 09/06/20 03:57 Microbiology Microbiology 09/05/20 Acid Fast Stain, Received Pending 09/05/20 Mycobacterial Culture, Received Pending 09/05/20 Fungal Smear, Received Pending 09/05/20 Fungal Culture, Received Pending 09/05/20 Gram Stain - Final, Resulted 09/05/20 Body Fluid Culture, Resulted Pending YUSEF BYRNES MD Sep 06, 2020 10:35
[2020-09-06 12:00] VITALS: BP 139/67
[2020-09-06] MEDS: HEPARIN DRIP 25,000 UNITS in IV 1 EA IV SCH (14:19)
[2020-09-06 20:00] VITALS: BP 150/65
[2020-09-06 20:24] LABS: HEMATOCRIT 34.4 % (36.0-47.0); HEMOGLOBIN 10.7 g/dl (12.0-15.5); MEAN CORPUSCULAR HEMOGLOBIN 26.6 pg (27.0-33.0); MEAN CORPUSCULAR HGB CONC 31.1 g/dl (32.0-36.5); MEAN CORPUSCULAR VOLUME 85.6 fl (80.0-96.0); RED BLOOD COUNT 4.02 10^6/uL (4.00-5.40); WHITE BLOOD COUNT 5.6 10^3/uL (4.0-10.0)
[2020-09-06 20:35] LABS: PLATELET COUNT, AUTOMATED 82 10^3/uL (150-450)
[2020-09-06] MEDS: LEVEMIR (INSULIN DETEMIR) 1 UNITS/0.01ML SC SCH (20:48)
[2020-09-06] MEDS: medroxyPROGESTERone 5MG TABLET PO SCH (20:48)
[2020-09-07] VITALS (9 sets, daily range): BP systolic 127–140; BP diastolic 60–67
[2020-09-07 04:58] LABS: MEAN CORPUSCULAR HEMOGLOBIN 26.5 pg (27.0-33.0); MEAN CORPUSCULAR HGB CONC 31.3 g/dl (32.0-36.5); MEAN CORPUSCULAR VOLUME 84.9 fl (80.0-96.0); RED BLOOD COUNT 3.77 10^6/uL (4.00-5.40); WHITE BLOOD COUNT 5.6 10^3/uL (4.0-10.0)
[2020-09-07 04:59] LABS: PLATELET COUNT, AUTOMATED 83 10^3/uL (150-450)
[2020-09-07 05:31] LABS: ALBUMIN 2.5 GM/DL (3.2-5.2); ALT/SGPT 43 U/L (12-78); BILIRUBIN,TOTAL 0.6 MG/DL (0.2-1.0); BLOOD UREA NITROGEN 11 MG/DL (7-18); CALCIUM LEVEL 8.3 MG/DL (8.5-10.1); CARBON DIOXIDE LEVEL 27 MEQ/L (21-32); CHLORIDE LEVEL 104 MEQ/L (98-107); GLOMERULAR FILTRATION RATE > 60.0 (>51); GLUCOSE, FASTING 298 MG/DL (70-100); POTASSIUM SERUM 3.8 MEQ/L (3.5-5.1); SODIUM LEVEL 138 MEQ/L (136-145); TOTAL PROTEIN 6.3 GM/DL (6.4-8.2)
[2020-09-07] MEDS: SLF 3 ML SYR IV SCH ×3 (06:13→21:13)
[2020-09-07] MEDS: HEPARIN DRIP 25,000 UNITS in IV 1 EA IV SCH (06:18)
[2020-09-07] MEDS: HumaLOG INSULIN (NovoLOG) PER UNIT SC SCH ×4 (07:30→21:13)
[2020-09-07] MEDS ORDERED: LEVEMIR (INSULIN DETEMIR) 1 UNITS/0.01ML SC ONE (08:00)
[2020-09-07] MEDS: ceFAZolin SOD 1 GM in D5W MINI-BAG PLUS 50 ML IV SCH ×2 (08:42→15:33)
[2020-09-07] MEDS: SPIRONOLACTONE 50 MG TAB PO SCH (08:43)
[2020-09-07] MEDS: CYANOCOBALAMIN 500 MCG TAB PO SCH (08:44)
[2020-09-07] MEDS: MULTIVITAMINS/MINERALS THERAP 1 TAB PO SCH (08:44)
[2020-09-07] MEDS: FERROUS SULFATE 325MG TAB PO SCH (08:44)
[2020-09-07] MEDS: MAGNESIUM OXIDE 400 MG TAB (MAG-OX) PO SCH (08:44)
[2020-09-07] MEDS: FUROSEMIDE 40 MG TAB PO SCH ×2 (08:44→17:43)
[2020-09-07] MEDS: rifAXIMin 550 MG TAB (XIFAXAN) PO SCH ×2 (08:45→21:12)
--- NOTE | 2020-09-07 09:29 | IRMSE ---
[facility] IR Moderate Sedation Eval. Date and Time Date: Sep 07, 2020 Time: 09:28 ASA Classification ASA Classification: III-Severe systemic dis. Mallampati Score: II NPO: Yes Obstructive Sleep Apnea: No Interval Plan: moderate sedation AKI PIZANO MD Sep 07, 2020 09:29
[2020-09-07] MEDS ORDERED: LIDOCAINE 1% MDV 20ML VIAL As Ordered ONE (09:32)
[2020-09-07] MEDS ORDERED: ISOVUE-300 61% 50ML VIAL As Ordered ONE (09:32)
[2020-09-07] MEDS ORDERED: PROMETHAZINE INJ 25 MG/ML VIAL (J2550) As Ordered ONE (09:33)
[2020-09-07] MEDS ORDERED: diphenhydrAMINE 50MG/ML VIAL (J1200) As Ordered ONE (09:33)
[2020-09-07] MEDS ORDERED: fentaNYL 100 MCG/2 ML INJECTION (J3010) As Ordered ONE (09:34)
[2020-09-07] MEDS ORDERED: MIDAZOLAM INJ 2MG/2ML VIAL (J2250 PER 1MG) As Ordered ONE (09:34)
[2020-09-07 11:48] LABS: HEMATOCRIT 32.5 % (36.0-47.0); HEMOGLOBIN 10.2 g/dl (12.0-15.5); MEAN CORPUSCULAR HEMOGLOBIN 26.7 pg (27.0-33.0); MEAN CORPUSCULAR HGB CONC 31.4 g/dl (32.0-36.5); MEAN CORPUSCULAR VOLUME 85.1 fl (80.0-96.0); RED BLOOD COUNT 3.82 10^6/uL (4.00-5.40); WHITE BLOOD COUNT 5.1 10^3/uL (4.0-10.0)
[2020-09-07 11:52] LABS: PLATELET COUNT, AUTOMATED 79 10^3/uL (150-450)
--- NOTE | 2020-09-07 12:06 | IPNPDOC ---
Date Seen The patient was seen on 09/07/20. Progress Note SUBJECTIVE: Patient denies bright red blood per rectum, melena, black tarry stools, coffee-ground emesis or hematemesis. . She denies any nausea, vomiting, abdominal pain. She denies any worsening abdominal distention status post paracentesis. She denies any shortness of breath, pleuritic chest pain, dyspnea on exertion, palpitations, lightheadedness or dizziness. Telemetry was unremarkable and discontinued yesterday. OBJECTIVE PHYSICAL EXAMINATION: VITAL SIGNS: Please see below. GENERAL: No jaundice or icterus no respiratory distress Speaks in full sentences. Awake, alert, oriented to person, place and time HEENT: No JVD, thyromegaly, no stridor. Neck is supple, full range of motion CARDIOVASCULAR: Regular rate rhythm, S1, S2.. Nondisplaced point of maximal impulse RESPIRATORY: Air entry is equal bilaterally. Clear to auscultation ABDOMINAL soft, slightly distended. No rebound or guarding , Nontender obese, positive bowel sounds 4 quadrants EXTREMITIES: Positive edema bilaterally LABORATORY DATA, IMAGING STUDIES, MICROBIOLOGY: Please see below. ASSESSMENT: A 60-year-old female with history of nonalcoholic steatohepatitis, GAVE, Liver cirrhosis, usually followed by her utilization management nurse, Dr.Sarah Sepulveda in [place], insulin-dependent diabetes admitted on 09/05/2020 for abdominal cellulitis and right lower extremity cellulitis PROBLEMS: Bilateral lower abdomen cellulitis -Improving on IV cefazolin - no fever or white count -decreasing erythema and tenderness -CT abdomen and pelvis 09/04/2020: Diffuse cellulitis in the abdominal panniculus more prominent than on the previous study. -after IVC filter is in place, Patient can be changed to oral antibiotics and di scharged home Right lower extremity DVT -Status post IV heparin drip -awaiting IVC filter placement today -No signs of acute GI bleed at this time, despite history of variceal bleeding and ulcers -Patient has a history of gastric antral vascular ectasia, but has not bled since several years. -She has remained stable on IV heparin without signs of active upper GI bleed. -We'll monitor on eliquis after IVC filter is placed GILL/decompensated Liver Cirrhosis with Recurrent Ascites -Status post paracentesis. 09/05/2020 with 2.550 L removed Gastric antral vascular ectasia -Dr. Lina Sepulveda EGD in 2019 was negative for esophageal varices or gastric ulcers, but recommended ablation. -Per GI, Dr. Leon, vascular ectasias usually recur even after ablation. Patient will need to be 2-3 weeks off anticoagulation after ablation, thereby recommending IVC filter to be placed first. -No signs of active GI bleed at this time IDDM2 Thrombocytopenia due to chronic liver cirrhosis 6 mm noncalcified pulmonary nodule, right middle lobe -Outpatient follow-up in 6 months with a chest CT Disposition: Monitor for 24 hours after anticoagulation has been started. Discharge home in 24-48 hours if no signs of active GI bleed After anticoagulation has been started VS, I&O, 24H, [facility] Vital Signs/I&O Vital Signs Date Time Temp Pulse Resp B/P (MAP) Pulse Ox O2 Delivery O2 Flow Rate FiO2 09/07/20 11:41 98.6 91 18 127/62 (83) 94 09/07/20 10:26 Nasal Cannula 2 I&O- Last 24 Hours up to 6 AM 09/07/20 06:00 Intake Total 1410 ml Output Total 3250 ml Balance -1840 ml Laboratory Data 24H LABS Laboratory Tests 2 09/06/20 12:38: Activated Partial Thromboplast Time 62.3H 09/06/20 16:29: Bedside Glucose (Misc Panel) 395H 09/06/20 20:08: Activated Partial Thromboplast Time 114.3H, Nucleated Red Blood Cells % (auto) 0.0 09/06/20 20:25: Bedside Glucose (Misc Panel) 433H 09/07/20 04:36: Nucleated Red Blood Cells % (auto) 0.0, Immature Platelet Fraction 1.7, Activated Partial Thromboplast Time 74.5H, Anion Gap 7L, Glomerular Filtration Rate > 60.0, Calcium Level 8.3L, Total Bilirubin 0.6, Aspartate Amino Transf (AST/SGOT) 41H, Alanine Aminotransferase (ALT/SGPT) 43, Alkaline Phosphatase 110, Total Protein 6.3L, Albumin 2.5L, Albumin/Globulin Ratio 0.7L 09/07/20 11:26: Nucleated Red Blood Cells % (auto) 0.0, Activated Partial Thromboplast Time 28.4 CBC/BMP Laboratory Tests 09/06/20 20:08 09/07/20 04:36 09/07/20 11:26 Microbiology Microbiology 09/07/20 Stool Occult Blood (TIA) - Final, Complete 09/05/20 Acid Fast Stain, Received Pending 09/05/20 Mycobacterial Culture, Received Pending 09/05/20 Fungal Smear, Received Pending 09/05/20 Fungal Culture, Received Pending 09/05/20 Gram Stain - Final, Complete 09/05/20 Body Fluid Culture - Final, Complete YUSEF BYRNES MD Sep 07, 2020 12:06
[2020-09-07] MEDS ORDERED: LEVEMIR (INSULIN DETEMIR) 1 UNITS/0.01ML SC SCH (21:00)
[2020-09-07] MEDS: medroxyPROGESTERone 5MG TABLET PO SCH (21:12)
[2020-09-07] MEDS: SUCRALFATE SUSP 1GM/10ML UD PO SCH (21:12)
[2020-09-07] MEDS: APIXABAN 5 MG TAB (ELIQUIS) PO SCH (21:12)
[2020-09-07] MEDS: PANTOPRAZOLE 40MG TAB (PROTONIX) PO SCH (21:12)
[2020-09-08] MEDS: ceFAZolin SOD 1 GM in D5W MINI-BAG PLUS 50 ML IV SCH ×2 (00:45→08:39)
[2020-09-08 04:00] VITALS: BP 104/50
[2020-09-08] MEDS: SLF 3 ML SYR IV SCH (05:07)
[2020-09-08 05:13] LABS: HEMATOCRIT 32.9 % (36.0-47.0); HEMOGLOBIN 10.1 g/dl (12.0-15.5); MEAN CORPUSCULAR HEMOGLOBIN 26.5 pg (27.0-33.0); MEAN CORPUSCULAR HGB CONC 30.7 g/dl (32.0-36.5); MEAN CORPUSCULAR VOLUME 86.4 fl (80.0-96.0); RED BLOOD COUNT 3.81 10^6/uL (4.00-5.40); WHITE BLOOD COUNT 5.5 10^3/uL (4.0-10.0)
[2020-09-08 05:14] LABS: PLATELET COUNT, AUTOMATED 79 10^3/uL (150-450)
[2020-09-08 05:33] LABS: BLOOD UREA NITROGEN 9 MG/DL (7-18); CALCIUM LEVEL 8.3 MG/DL (8.5-10.1); CARBON DIOXIDE LEVEL 28 MEQ/L (21-32); CHLORIDE LEVEL 104 MEQ/L (98-107); GLOMERULAR FILTRATION RATE > 60.0 (>51); GLUCOSE, FASTING 292 MG/DL (70-100); POTASSIUM SERUM 3.8 MEQ/L (3.5-5.1); SODIUM LEVEL 138 MEQ/L (136-145)
[2020-09-08] MEDS ORDERED: ELIQ5TAB PO (07:23)
[2020-09-08] MEDS ORDERED: PANT40TA29 PO (07:23)
[2020-09-08] MEDS ORDERED: SUCR1ORA PO (07:23)
[2020-09-08] MEDS ORDERED: CEPH500C PO (07:58)
[2020-09-08] MEDS ORDERED: BACI1CAP PO (07:59)
[2020-09-08] MEDS: SUCRALFATE SUSP 1GM/10ML UD PO SCH ×2 (08:38→12:41)
[2020-09-08] MEDS: HumaLOG INSULIN (NovoLOG) PER UNIT SC SCH ×2 (08:38→12:41)
[2020-09-08] MEDS: SPIRONOLACTONE 50 MG TAB PO SCH (08:39)
[2020-09-08] MEDS: APIXABAN 5 MG TAB (ELIQUIS) PO SCH (08:39)
[2020-09-08] MEDS: MULTIVITAMINS/MINERALS THERAP 1 TAB PO SCH (08:39)
[2020-09-08] MEDS: rifAXIMin 550 MG TAB (XIFAXAN) PO SCH (08:39)
[2020-09-08] MEDS: PANTOPRAZOLE 40MG TAB (PROTONIX) PO SCH (08:39)
[2020-09-08] MEDS: MAGNESIUM OXIDE 400 MG TAB (MAG-OX) PO SCH (08:39)
[2020-09-08] MEDS: FERROUS SULFATE 325MG TAB PO SCH (08:39)
[2020-09-08] MEDS: FUROSEMIDE 40 MG TAB PO SCH (08:40)
[2020-09-08] MEDS: CYANOCOBALAMIN 500 MCG TAB PO SCH (08:40)
[2020-09-08 10:03] LABS: DRVV SCREEN 40.4 SEC
--- NOTE | 2020-09-08 10:22 | POST-OPPD ---
Postoperative Procedure Note Date Of Procedure: Sep 07, 2020 Time Of Procedure: 16:00 IR IVC Filter Placement. Inferior vena cavogram. Ultrasound of the right groin. Clinical Information:Right lower extremity DVT. Gastric varices. Risk of GI hemorrhage. Patient scheduled to see GI for gastric varix ablation for which anticoagulation would have to be stopped.. Physician: Dr. Leon. Procedure: The patient was advised of the benefits, risks, and alternatives of the procedure and informed consent was obtained. A time out was performed with verification of the patient's name, MRN, site of procedure, and type of procedure to be performed. The patient was positioned in the supine position on the angiographic table. The site was prepped and draped in the usual sterile fashion. Moderate sedation was performed by the physician including the presence of an independent trained RN, who assisted in monitoring the patient's level of consc iousness and physiological status. Following the administration of fentanyl and Versed, the physician spent 45 minutes of continuous [id number] time with the patient. Preliminary ultrasound of the right groin was performed, demonstrating partially thrombosed right common femoral vein. The right common femoral vein was accessed under ultrasound guidance, using a micropuncture kit. An 0.035 wire was placed into the inferior vena cava, under fluoroscopic guidance. The filter sheath was then advanced over the wire, under fluoroscopic guidance and positioned in iliac vein. An inferior venacavogram was then performed, demonstrating a normal caliber inferior vena cava without filling defects and the renal vein inflows at the L2 level. No caval anomalies were identified. The filter sheath advanced over the wire. A Cook celect inferior vena cava filter was then advanced through the sheath and positioned within the infra- renal inferior vena cava. The filter was then deployed in the usual fashion. Positioning was confirmed fluoroscopically. The sheath was then removed and hemostasis obtained with manual compression. The patient tolerated the procedure well and was returned to the PRU in stable condition. EBL: < 5 mL. Complications:None. Conclusions: 1. Normal cavogram. 2. Successful deployment of a Cook Celect retrievable inferior vena cava filter in the infra-renal inferior vena cava. 3. Patient to follow-up in IR clinic in 6 months to discuss filter retrieval. Thank you for this referral AKI LEON MD Sep 08, 2020 10:22
--- NOTE | 2020-09-08 10:31 | DS.PDOC ---
Discharge Summary General Date of Admission Sep 04, 2020 at 17:40 Date of Discharge 09/08/20 Discharge Summary DISCHARGE DIAGNOSES: lower abdomen cellulitis Right lower extremity DVT S/P IVC Filter placement GILL/decompensated Liver Cirrhosis with Recurrent Ascites Gastric antral vascular ectasia IDDM2 Thrombocytopenia due to chronic liver cirrhosis 6 mm noncalcified pulmonary nodule, right middle lobe-NEEDS REPEAT CT IN 6MOS. cirrhosis with portal hypertension esophageal varices Mild ileus DISCHARGE MEDICATIONS: SEE BELOW ALLERGIES: SEE BELOW DISCHARGE INSTRUCTIONS: KEEP RIGHT GROIN SITE S/P IVC FILTER DRY X 5DAYS-NO SHOWERING PCP FU 1WK, GI DR LINA SEPULVEDA [address] CHEST FOR PULM NODULE IN 6MONTHS-PCP TO ORDER OUTPT PHOTO EDITOR: Interventional Radiologist-Dr. Leon PROCEDURE: IVC FILTER placement 09/07/20-Interventional radiology HOSPITAL COURSE: A 60-year-old female with history of nonalcoholic steatohepatitis, GAVE, Liver cirrhosis, usually followed by her safe expert, Dr.Sarah Sepulveda in [place], insulin-dependent diabetes admitted on 09/05/2020 for lower abdominal cellulitis, ascites requiring paracentesis and right lower DVT. Bilateral lower abdomen cellulitis -s/p IV cefazolin - no fever or white count -decreasing erythema and tenderness -CT abdomen and pelvis 09/04/2020: Diffuse cellulitis in the abdominal panniculus more prominent than on the previous study. -after IVC filter is in place, Patient can be changed to oral antibiotics and discharged home Right lower extremity DVT -Status post IV heparin drip -s/p IVC filter placement 09/07/20 -No signs of acute GI bleed at this time, despite history of variceal bleeding and ulcers -Patient has a history of gastric antral vascular ectasia, but has not bled since several years. -She has remained stable on IV heparin without signs of active upper GI bleed. -stable w/o GI bleed for 24hrs after eliquis started on 09/07/20 GILL/decompensated Liver Cirrhosis with Recurrent Ascites -Status post paracentesis. 09/05/2020 with 2.550 L removed Gastric antral vascular ectasia -Dr. Lina Sepulveda EGD in 2019 was negative for esophageal varices or gastric ulcers, but recommended ablation. -Per GI, Dr. Leon, vascular ectasias usually recur even after ablation. Patient will need to be 2-3 weeks off anticoagulation after ablation, thereby recommending IVC filter to be placed first. -No signs of active GI bleed at this time IDDM2 Thrombocytopenia due to chronic liver cirrhosis 6 mm noncalcified pulmonary nodule, right middle lobe -Outpatient follow-up in 6 months with a chest CT Disposition: Monitored for 24 hours after eliquis started on 09/07/20, and no signs of active GI bleed overnight. DISCHARGE PHYSICAL EXAMINATION: VITAL SIGNS: Please see below. GENERAL: No jaundice or icterus no respiratory distress Speaks in full sentences. Awake, alert, oriented to person, place and time HEENT: No JVD, thyromegaly, no stridor. Neck is supple, full range of motion CARDIOVASCULAR: Regular rate rhythm, S1, S2.. Nondisplaced point of maximal impulse RESPIRATORY: Air entry is equal bilaterally. Clear to auscultation ABDOMINAL soft, slightly distended. No rebound or guarding , Nontender obese, positive bowel sounds 4 quadrants right groin w/o hematoma or erythema/fluctuance or crepitus EXTREMITIES: Positive edema bilaterally DISCHARGE LABORATORY DATA, IMAGING STUDIES, MICROBIOLOGY: Please see below. VENOUS DOPPLERS LE 09/04/20 COMPARISON: Comparison right lower extremity duplex venous scan is from March 10, 2020.. TECHNIQUE: Right lower extremity duplex venous scanning. FINDINGS: There is extensive deep vein thrombosis in the right lower extremity. Occlusive venous thrombosis is seen in the femoral vein from common femoral vein segment to mid femoral vein segment. Nonocclusive thrombus is seen in the distal femoral vein and popliteal vein on the right side. Hypoechoic material is seen within the veins which show lack of complete compressibility.. IMPRESSION: Positive study for extensive occlusive and nonocclusive deep vein thrombosis in the right lower extremity from common femoral vein through popliteal vein.. <Electronically signed by Jack Curtis > 09/04/20 1540 CTABD/PELVIS: INDICATION: ascites, flank pain. COMPARISON: Comparison CT study of the abdomen and pelvis June 21, 2020.. TECHNIQUE: Helical scanning was acquired and 4 mm axial images are re-formatted. Coronal and sagittal MPR images were generated and reviewed. The contrast enhancement dose is 100 mL of intravenous Isovue 370. FINDINGS: Preliminary digital log truck driver radiograph shows air-filled loops of small and large bowel throughout the abdomen and clips in the right upper quadrant. The lung bases are clear. There is a macro nodular liver contour and hypertrophy of the left lobe consi stent with cirrhosis. Splenomegaly is again observed. Spleen measures 15.0 cm in greatest diameter. There are venous collaterals in the upper abdomen including varices at the gastroesophageal junction. The gallbladder surgically absent. No focal liver lesion is seen. No adrenal abnormality is observed. No abnormality is seen in the pancreas. Kidneys enhance symmetrically. There is a small cyst in the upper pole of the right kidney measuring 2.3 cm in greatest diameter. There is diffuse abdominal ascites as before. The amount of ascites is somewhat increased compared to June 24. A mild ileus pattern is seen in the bowel gas. There is a periumbilical ventral hernia trans Miller abdominal fat and some ascitic fluid. There is diffuse subcutaneous edema and dermal thickening again noted in the panniculus. This is somewhat more prominent than on the prior study and may r eflect cellulitis. No soft tissue abscess is seen. No uterine or ovarian abnormality is seen. Urinary bladder is intact. No bony destructive lesion is seen. IMPRESSION: Evidence of cirrhosis with portal hypertension esophageal varices, diffuse abdominal ascites, splenomegaly. There is cellulitis pattern in the abdominal panniculus somewhat more prominent than on the prior study. Mild ileus pattern in the bowel gas CT CHEST: INDICATION: SOB/DVT. COMPARISON: No prior chest CT.. TECHNIQUE: Contrast dose: 100 ML of Isovue [address] technique: Helical scanning is acquired and overlapping 1.5 mm and contiguous 3 mm axial images are reformatted. In addition, maximum intensity projection and multiplanar re-formation images are generated in sagittal and coronal imaging projections. FINDINGS: There is good opacification in the pulmonary arterial tree. There is no evidence of vessel cut off or filling defect to suggest pulmonary embolus. Homogeneous opacity is seen in the thoracic aorta. There is no evidence of aneurysm or dissection. Lung window settings demonstrate no pleural or pericardial effusion is seen. There is no evidence of infiltrate, atelectasis, or lung mass. There is a 6 mm noncalcified pulmonary nodule in the right middle lobe. This projects on page 03/03/1984 in series 402 of today's study. There are 2 tiny 2 mm nodules 1 in the right lower lobe on the same page 37 and the other in the right upper lobe projecting on page . No other significant pulmonary nodule is appreciated. No hilar or mediastinal mass or adenopathy is observed. In the upper abdomen, there is evidence of diffuse mild upper abdominal ascites. There is hypertrophy of the left lobe of the liver and splenomegaly consistent with cirrhosis. Post cholecystectomy clips are noted. No adrenal mass is seen. No bony destructive lesion. IMPRESSION: No CT evidence of pulmonary embolus. Evidence of cirrhosis with upper abdominal ascites. There is a 6 mm noncalcified pulmonary nodule in the right middle lobe. Follow-up chest CT suggested in 6 months. <Electronically signed by Jack Curtis > 09/04/20 4712 TIME SPENT ON DISCHARGE: 30 MIN Vital Signs/I&Os Vital Signs Date Time Temp Pulse Resp B/P (MAP) Pulse Ox O2 Delivery O2 Flow Rate FiO2 09/08/20 04:00 99.3 88 18 104/50 (68) 94 Room Air 09/07/20 10:26 2 I&O- Last 24 Hours up to 6 AM 09/08/20 06:00 Intake Total 1380 ml Output Total 300 ml Balance 1080 ml Laboratory Data Labs 24H Laboratory Tests 2 09/07/20 11:26: Nucleated Red Blood Cells % (auto) 0.0, Activated Partial Thromboplast Time 28.4 09/07/20 12:22: Bedside Glucose (Misc Panel) 237H 09/07/20 17:42: Bedside Glucose (Misc Panel) 324H 09/07/20 20:57: Bedside Glucose (Misc Panel) 363H 09/08/20 04:57: Nucleated Red Blood Cells % (auto) 0.0, Immature Platelet Fraction 1.8, Anion Gap 6L, Glomerular Filtration Rate > 60.0, Calcium Level 8.3L CBC/BMP Laboratory Tests 09/07/20 11:26 09/08/20 04:57 FSBS Laboratory Tests Test 09/07/20 12:22 09/07/20 17:42 09/07/20 20:57 Range/Units Bedside Glucose (Misc Panel) 237 324 363 70-105 MG/DL Microbiology Microbiology 09/07/20 Stool Occult Blood (TIA) - Final, Complete 09/05/20 Acid Fast Stain, Received Pending 09/05/20 Mycobacterial Culture, Received Pending 09/05/20 Fungal Smear, Received Pending 09/05/20 Fungal Culture, Received Pending 09/05/20 Gram Stain - Final, Complete 09/05/20 Body Fluid Culture - Final, Complete Discharge Medications Scheduled Apixaban (Eliquis) 5 Mg Tablet, 5 MG PO BID Bacillus Coagulans (Bacid with Lactospore) 1 Each Capsule, 1 CAP PO WM Cephalexin (Cephalexin) 500 Mg Capsule, 500 MG PO QID Cyanocobalamin (Vitamin B-12) (Vitamin B-12) 500 Mcg Tablet, 500 MCG PO DAILY, (Reported) Dulaglutide (Trulicity) 1.5 Mg/0.5 Ml Pen.injctr, 1.5 MG SC 1XWK, (Reported) THURSDAYS Ferrous Sulfate (Ferrous Sulfate) 325 Mg Tablet, 325 MG PO DAILY, (Reported) Furosemide (Furosemide) 40 Mg Tablet, 40 MG PO BID, (Reported) Insulin Glargine,Hum.rec.anlog (Basaglar Kwikpen U-100) 100 Unit/1 Ml Insuln.pen, 25 UNITS SQ QHS, (Reported) Magnesium Oxide (Magnesium) 400 Mg Capsule, 400 MG PO DAILY, (Reported) Medroxyprogesterone Acetate (Medroxyprogesterone Acetate) 10 Mg Tablet, 10 MG PO QHS, (Reported) Metformin HCl (Metformin HCl) 1,000 Mg Tablet, 1,000 MG PO BID, (Reported) Multivitamin with Minerals (Hair, Skin and Nails) 1 Each Tablet, 1 TAB PO DAILY, (Reported) Pantoprazole Sodium (Pantoprazole Sodium) 40 Mg Tablet.dr, 40 MG PO BID Rifaximin (Xifaxan) 550 Mg Tablet, 550 MG PO BID, (Reported) Sitagliptin Phos/Metformin HCl (Janumet 50-1,000 mg Tablet) 1 Each Tablet, 1 TAB PO BID, (Reported) Sucralfate (Sucralfate) 1 Gm/10 Ml Oral.susp, 1 GM PO ACHS Scheduled PRN Spironolactone (Spironolactone) 50 Mg Tablet, 50 MG PO BID PRN for EDEMA, (Reported) Allergies Coded Allergies: latex (Verified Allergy, Mild, itching, 03/26/19) vancomycin (Verified Allergy, Unknown, Rash, 09/05/20) YUSEF BYRNES MD Sep 08, 2020 10:31
[2020-09-08] MEDS ORDERED: CARA1TAB6 PO (12:41)
[2020-09-12 16:08] LABS: ANCA-ATYPICAL <1:20 titer (Neg:<1:20); ANTI DOUBLE STRAND-DNA AB <1 IU/mL (0-9); ANTI THROMBIN 3 ANTIGEN IMMUNO 66 % (72-124); ANTI THROMBIN 3 FUNCT ACTIVITY 75 % (75-135); ANTINUCLEAR ANTIBODIES DIRECT Positive (Negative); CARDIOLIPIN IGA ANTIBODY <9 APL U/mL (0-11); CARDIOLIPIN IGG ANTIBODY <9 GPL U/mL (0-14); CARDIOLIPIN IGM ANTIBODY <9 MPL U/mL (0-12); CYTOPLASMIC NEUTROP AB ANCA-C <1:20 titer (Neg:<1:20); HOMOCYST(E)INE SERUM 6.9 umol/L (0.0-14.5); PERINUCLEAR AB ANCA-P <1:20 titer (Neg:<1:20); PROTEIN C ANTIGEN 67 % (60-150); PROTEIN S ANTIGEN FREE 88 % (57-157); PROTEIN S ANTIGEN TOTAL 82 % (60-150); RNP ANTIBODIES 0.6 AI (0.0-0.9); SJOGREN'S ANTI SS-A 1.6 AI (0.0-0.9); SJOGREN'S ANTI SS-B <0.2 AI (0.0-0.9); SMITH ANTIBODIES <0.2 AI (0.0-0.9)
== END 2020-09-08 14:12 | disposition home or self-care (01) | DRG 603 ==
LOC: M ED 13:51 → M ED INP 17:40 → ENRESERV 17:56 → M PCU 18:47
PROVIDERS: ADMIT Internal Medicine; ATTEND General Practice
PROC: 0W9G3ZZ Drainage of Peritoneal Cavity, Percutaneous Approach (ICD-10-PCS; 2020-09-05)
PROC: 06H03DZ Insertion of Intraluminal Device into Inferior Vena Cava, Percutaneous Approach (ICD-10-PCS; principal; 2020-09-07 09:30)
DX: L03.311 Cellulitis of abdominal wall (principal); I82.411 Acute embolism and thrombosis of right femoral vein; R18.8 Other ascites; I82.431 Acute embolism and thrombosis of right popliteal vein; K56.7 Ileus, unspecified; K74.60 Unspecified cirrhosis of liver; K75.81 Nonalcoholic steatohepatitis (NASH); E11.9 Type 2 diabetes mellitus without complications; R91.1 Solitary pulmonary nodule; K31.819 Angiodysplasia of stomach and duodenum without bleeding; D69.59 Other secondary thrombocytopenia; Z79.4 Long term (current) use of insulin; Z79.899 Other long term (current) drug therapy; Z91.040 Latex allergy status; Z90.49 Acquired absence of other specified parts of digestive tract

== ENCOUNTER → 2020-09-20 | Outpatient (POV) | payer MEDICARE ==
[~2020-09-20] MED LIST changes: +AMOX875T2 PO; +BACI1CAP PO; +CARA1TAB6 PO; +CEPH500C PO; +ELIQ5TAB PO; +METF10004 PO; +METF500T13 PO; +SUCR1ORA PO; +TRUL0.5I SC; +XIFA550T PO
--- NOTE | 2020-09-22 10:54 | IRPN ---
[facility] IR Progress Note IR Progress Note DATE: Sep 20, 2020 Patient agreed to this telephone follow-up. I spent 10 minutes talking to the patient. FOLLOW-UP: 60-year-old female with end-stage liver disease and known gastric varices status post IVC filter placement for right lower extremity DVT. Patient is on Eliquis 5 mg twice a day however a filter was placed as anticoagulation may have to be stopped for gastric varix ablation. Patient doing well status post IVC filter placement. States no pain or bruising at the access site. Denies hematemesis or melena. Denies dizziness or syncope. She is on iron pills. ON EXAMINATION: No video on patient side. IMPRESSION: 52-year-old female with end-stage liver disease and known gastric varices status post IVC filter placement. Patient is to follow-up with GI for possible gastric varix ablation. Will follow up patient in 6 months time post ablation to discuss filter retrieval. If patient can be maintained on anticoagulation, the filter should then be removed. Thank you for this referral Cc Dr. Lina Sepulveda Cc PCP Allergies Coded Allergies: latex (Verified Allergy, Mild, itching, 03/26/19) vancomycin (Verified Allergy, Unknown, Rash, 09/05/20) AKI PIZANO MD Sep 22, 2020 10:54
== END ==
LOC: M TMIRPOV 08:01
PROVIDERS: ATTEND Radiology Diagnostic Radiology
DX: Z48.816 Encounter for surgical aftercare following surgery on the genitourinary system (principal); Z95.828 Presence of other vascular implants and grafts; K72.90 Hepatic failure, unspecified without coma; I86.4 Gastric varices

== ENCOUNTER → 2020-10-10 | Outpatient (REF) | payer MEDICARE ==
[~2020-10-10] MED LIST changes: +GLIP10TA PO
[2020-10-10 15:29] LABS: HEMATOCRIT 33.7 % (36.0-47.0); HEMOGLOBIN 10.3 g/dl (12.0-15.5); MEAN CORPUSCULAR HEMOGLOBIN 26.2 pg (27.0-33.0); MEAN CORPUSCULAR HGB CONC 30.6 g/dl (32.0-36.5); MEAN CORPUSCULAR VOLUME 85.8 fl (80.0-96.0); PLATELET COUNT, AUTOMATED 73 10^3/uL (150-450); RED BLOOD COUNT 3.93 10^6/uL (4.00-5.40); WHITE BLOOD COUNT 4.6 10^3/uL (4.0-10.0)
[2020-10-10 15:45] LABS: FERRITIN 21 NG/ML (8-252); IRON (FE) 35 UG/DL (50-170)
== END ==
LOC: M PLALAB 12:32
PROVIDERS: ATTEND Specialist
DX: N92.0 Excessive and frequent menstruation with regular cycle (principal)
CPT/HCPCS: 36415; 82728; 83540; 85027; 85049; 85055; G0463

== ENCOUNTER 2020-10-21 10:44 | Outpatient (CLI) | payer MEDICARE ==
[~2020-10-21] VITALS: Ht 149.9 cm; Wt 102.2 kg
[~2020-10-21 10:44] MED LIST changes: -GLIP10TA PO; +IRON SUCROSE 500 MG in NS 250 ML OVER 4 HRS IV ONE
[2020-10-21 10:50] VITALS: BP 179/79
[2020-10-21] MEDS ORDERED: GLIP10TA PO (11:16)
[2020-10-21 11:50] VITALS: BP 142/66
[2020-10-21 12:50] VITALS: BP 150/64
[2020-10-21 13:50] VITALS: BP 154/70
[2020-10-21 16:00] VITALS: BP 160/70
== END 2020-10-21 16:00 | disposition home or self-care (01) ==
LOC: M INFU 10:44
PROVIDERS: ATTEND Specialist
DX: D50.9 Iron deficiency anemia, unspecified (principal); Z88.1 Allergy status to other antibiotic agents; Z91.040 Latex allergy status
CPT/HCPCS: 96365; 96366; J1756

== ENCOUNTER → 2020-11-15 | Outpatient (CLI) | payer MEDICARE ==
[~2020-11-15] MED LIST changes: +GLIP10TA PO; -IRON SUCROSE 500 MG in NS 250 ML OVER 4 HRS IV ONE
--- NOTE | 2020-11-15 14:35 | REP ---
INDICATION: ACUTE EMBOLISM AND THROMBUS UNSP DEEP VEINS OF R/ LABS AFTER COMPARISON: 09/04/2020. TECHNIQUE: Real time compression and duplex Doppler interrogation of the right lower extremity deep venous system is performed. FINDINGS: There is diffuse nonocclusive thrombus throughout the right common femoral vein, femoral vein and popliteal vein. The amount of thrombus in the femoral vein is decreased, previously occlusive. Prominent lymph node with an abundant fatty echogenic hilum located in the right inguinal region measures 3.6 x 1.2 x 1.7 cm. IMPRESSION: Nonocclusive thrombus throughout the common femoral vein, femoral vein and popliteal vein, thrombus in the femoral vein has decreased as it was previously occlusive. <Electronically signed by Nicholas Snow > 11/15/20 [id number]
== END ==
LOC: M RAD 13:23
PROVIDERS: ATTEND Family Medicine
DX: I82.411 Acute embolism and thrombosis of right femoral vein (principal)

== ENCOUNTER → 2020-11-15 | Outpatient (CLI) | payer MEDICARE ==
[2020-11-15 14:15] LABS: HEMATOCRIT 33.7 % (36.0-47.0); HEMOGLOBIN 10.5 g/dl (12.0-15.5); MEAN CORPUSCULAR HEMOGLOBIN 26.5 pg (27.0-33.0); MEAN CORPUSCULAR HGB CONC 31.2 g/dl (32.0-36.5); MEAN CORPUSCULAR VOLUME 85.1 fl (80.0-96.0); RED BLOOD COUNT 3.96 10^6/uL (4.00-5.40); WHITE BLOOD COUNT 4.5 10^3/uL (4.0-10.0)
[2020-11-15 14:24] LABS: PLATELET COUNT, AUTOMATED 60 10^3/uL (150-450)
[2020-11-15 14:28] LABS: INR 1.3; PROTHROMBIN TIME 16.4 SECONDS (12.5-14.3)
[2020-11-15 14:39] LABS: ALBUMIN 2.9 GM/DL (3.2-5.2); ALT/SGPT 43 U/L (12-78); BLOOD UREA NITROGEN 18 MG/DL (7-18); CALCIUM LEVEL 9.5 MG/DL (8.5-10.1); CARBON DIOXIDE LEVEL 23 MEQ/L (21-32); CHLORIDE LEVEL 107 MEQ/L (98-107); CREATININE FOR GFR 0.88 MG/DL (0.55-1.30); GLOMERULAR FILTRATION RATE > 60.0 (>51); GLUCOSE, FASTING 348 MG/DL (70-100); MAGNESIUM LEVEL 1.9 MG/DL (1.8-2.4); POTASSIUM SERUM 4.5 MEQ/L (3.5-5.1); SODIUM LEVEL 140 MEQ/L (136-145); TOTAL PROTEIN 7.2 GM/DL (6.4-8.2)
== END ==
LOC: M LAB 13:21
PROVIDERS: ATTEND Internal Medicine Gastroenterology
DX: R18.8 Other ascites (principal); K31.811 Angiodysplasia of stomach and duodenum with bleeding; K44.9 Diaphragmatic hernia without obstruction or gangrene; D69.6 Thrombocytopenia, unspecified; I85.00 Esophageal varices without bleeding; I82.411 Acute embolism and thrombosis of right femoral vein

== ENCOUNTER → 2020-12-06 | Outpatient (REF) | payer MEDICARE ==
[2020-12-06 12:27] LABS: HEPATITIS B SURFACE ANTIBODY NEGATIVE (POSITIVE); HIV 1&2 SCREEN CENTAUR NEGATIVE (NEGATIVE)
== END ==
LOC: M PLALAB 09:09
PROVIDERS: ATTEND Specialist
DX: Z20.2 Contact with and (suspected) exposure to infections with a predominantly sexual mode of transmission (principal); Z11.3 Encounter for screening for infections with a predominantly sexual mode of transmission
CPT/HCPCS: 36415; 86706; 86780; 87389; 87490; 87590; G0463

== ENCOUNTER → 2021-01-20 | Outpatient (REF) | payer MEDICARE | LOC: M SFHCWAGY 12:58 | PROVIDERS: ATTEND Specialist | DX: N76.2 Acute vulvitis (principal) | CPT/HCPCS: 87255; G0463 ==

== ENCOUNTER → 2021-03-07 | Outpatient (POV) | payer MEDICARE ==
[~2021-03-07] VITALS: Ht 152.4 cm; Wt 83.1 kg
[2021-03-07 09:25] VITALS: BP 160/72
--- NOTE | 2021-03-08 09:57 | IRPN ---
[facility] IR Progress Note IR Progress Note DATE: Mar 07, 2021 FOLLOW-UP: Patient is 6 months status post IVC filter placement, for extensive lower extremity deep vein thrombosis and anticipated interruption in anticoagulation for gastric varix ablation. Patient reports she has completed her gastric varix therapy. She denies any hematemesis or melena. Patient was on Eliquis, however this has intermittently been stopped due to postmenopausal vaginal bleeding. She sees Dr. Denny Sampson for this. She denies any recent chest pain, shortness of breath or hemoptysis. She denies any recent lower extremity swelling or pain. ON EXAMINATION: Patient comfortable at rest. Bilateral lower extremities symmetrical with no asymmetric edema. Imaging: I personally reviewed the right lower extremity venous ultrasound obtained in September, 2 months after starting Eliquis. There is still significant occlusive thrombus in the right lower extremity. IMPRESSION: 61-year-old female with extensive right lower extremity DVT, now status post IVC filter placement due to anticipated interruption in anticoagulation for gastric varix ablation. However, there is also frequent interruption in Eliquis therapy due to vaginal bleeding. In this case, it would be safer to keep the filter; indication being contraindication to anti coagulation. Once patient can reliably and consistently be anticoagulated for 6- 12 months, without new breakthrough DVTs, the filter may be removed. Patient to be followed up in September 2021, one-year jose alejandro post filter placement. Thank you for this referral. Cc Dr. Denny Sampson. Cc Dr. Lina Sepulveda Allergies Coded Allergies: latex (Verified Allergy, Mild, itching, 03/26/19) vancomycin (Verified Allergy, Unknown, Rash, 09/05/20) VS,Fishbone, I+O VS, Fishbone, I+O Vital Signs Date Time Temp Pulse Resp B/P (MAP) Pulse Ox O2 Delivery O2 Flow Rate FiO2 03/07/21 09:25 96.3 76 20 160/72 (101) 96 Room Air AKI PIZANO MD Mar 08, 2021 09:57
== END ==
LOC: M IRPOV 09:17
PROVIDERS: ATTEND Radiology Diagnostic Radiology
DX: Z48.812 Encounter for surgical aftercare following surgery on the circulatory system (principal); Z86.718 Personal history of other venous thrombosis and embolism

== ENCOUNTER → 2021-03-20 | Outpatient (CLI) | payer MEDICARE ==
--- NOTE | 2021-03-20 15:09 | REP ---
INDICATION: PAD. COMPARISON: None. TECHNIQUE: Bilateral lower extremity arterial Doppler sonography. FINDINGS: Ankle brachial indices could not be obtained on either lower extremity because of noncompressible vessels. Moderate atherosclerotic plaquing is seen in the lower extremity arterial tree bilaterally. In the right posterior tibial artery, there is a 2-1 velocity ratio stenosis. No other evidence of high-grade stenosis or occlusion seen. Triphasic and biphasic arterial Doppler waveforms are noted bilaterally. Right lower extremity arterial Doppler velocity chart: Right SIDE SHOW ENTERTAINER PSV 102 cm/S Profundal 82 Proximal SFA 111 Mid SFA 157 Distal SFA 131 Popliteal 114 Proximal OLU 64 Tibial-peroneal trunk 102 STATION INSPECTOR proximal 71 Distal STATION INSPECTOR 136 Distal OLU 57 Left lower extremity arterial Doppler velocity chart: Left SIDE SHOW ENTERTAINER PSV 97 cm/S Profundal 69 Proximal SFA 111 Mid SFA 141 Distal SFA 97 Popliteal 99 Proximal OLU 57 Tibial-peroneal trunk 100 Proximal STATION INSPECTOR 105 Distal STATION INSPECTOR 132 Distal OLU 87 IMPRESSION: Moderate atherosclerotic plaquing bilaterally. No high-grade stenosis. No occlusion seen. Mild right posterior tibial artery stenosis seen. <Electronically signed by Jack Curtis > 03/20/21 [id number]
== END ==
LOC: M RAD 13:39
PROVIDERS: ATTEND Radiology Diagnostic Radiology
DX: I73.9 Peripheral vascular disease, unspecified (principal)

== ENCOUNTER → 2021-10-10 | Outpatient (POV) | payer MEDICARE ==
[~2021-10-10] VITALS: Ht 152.4 cm; Wt 89.0 kg
[~2021-10-10] MED LIST changes: -OMEP-221 PO; +OMEP40CA5 PO
[2021-10-10 12:35] VITALS: BP 167/73
== END ==
LOC: M IRPOV 12:14
PROVIDERS: ATTEND Radiology Diagnostic Radiology
DX: Z45.2 Encounter for adjustment and management of vascular access device (principal); Z88.1 Allergy status to other antibiotic agents; Z91.040 Latex allergy status

== ENCOUNTER → 2022-03-08 | Outpatient (CLI) | payer MEDICARE, OTHER ==
[~2022-03-08] MED LIST changes: +DAILTAB63 PO; +ELIQ5TAB; +ISOVUE-370 76% 100ML VIAL As Ordered ONE
== END ==
LOC: M RAD 11:02
PROVIDERS: ATTEND Internal Medicine Gastroenterology
DX: R16.1 Splenomegaly, not elsewhere classified (principal); N28.1 Cyst of kidney, acquired; K43.9 Ventral hernia without obstruction or gangrene; K42.9 Umbilical hernia without obstruction or gangrene; M51.36 Other intervertebral disc degeneration, lumbar region; M51.34 Other intervertebral disc degeneration, thoracic region; K57.90 Diverticulosis of intestine, part unspecified, without perforation or abscess without bleeding; K74.00 Hepatic fibrosis, unspecified; K21.9 Gastro-esophageal reflux disease without esophagitis; K22.2 Esophageal obstruction; I85.00 Esophageal varices without bleeding; D69.6 Thrombocytopenia, unspecified; R18.8 Other ascites

== ENCOUNTER → 2022-04-11 | Outpatient (REF) | payer MEDICARE, OTHER ==
[~2022-04-11] MED LIST changes: -ISOVUE-370 76% 100ML VIAL As Ordered ONE
== END ==
LOC: M LAB REF 17:24
PROVIDERS: ATTEND Ophthalmology
DX: D23.111 Other benign neoplasm of skin of right upper eyelid, including canthus (principal)

== ENCOUNTER → 2022-06-21 | Outpatient (REF) | payer MEDICARE | LOC: M LAB REF 16:07 | PROVIDERS: ATTEND Ophthalmology | DX: D23.121 Other benign neoplasm of skin of left upper eyelid, including canthus (principal); L72.0 Epidermal cyst ==

== ENCOUNTER → 2022-09-05 | Outpatient (CLI) | payer MEDICARE ==
[~2022-09-05] MED LIST changes: -MEDR10TA PO; +MEDR10TA9 PO
[2022-09-05 15:45] LABS: HEMATOCRIT 39.4 % (36.0-47.0); HEMOGLOBIN 12.9 g/dl (12.0-15.5); MEAN CORPUSCULAR HEMOGLOBIN 27.2 pg (27.0-33.0); MEAN CORPUSCULAR HGB CONC 32.7 g/dl (32.0-36.5); MEAN CORPUSCULAR VOLUME 82.9 fl (80.0-96.0); RED BLOOD COUNT 4.75 10^6/uL (4.00-5.40); WHITE BLOOD COUNT 5.5 10^3/uL (4.0-10.0)
[2022-09-05 15:49] LABS: PLATELET COUNT, AUTOMATED 45 10^3/uL (150-450)
[2022-09-05 15:52] LABS: ALBUMIN 2.9 G/DL (3.2-5.2); ALKALINE PHOSPHATASE 94 U/L (46-116); ALT/SGPT 47 U/L (7.0-40); AST/SGOT 47 U/L (<34); BILIRUBIN,TOTAL 1.2 MG/DL (0.3-1.2); BLOOD UREA NITROGEN 16 MG/DL (9-23); CALCIUM LEVEL 9.4 MG/DL (8.3-10.6); CARBON DIOXIDE LEVEL 29 MMOL/L (20-31); CHLORIDE LEVEL 108 MMOL/L (98-107); CREATININE FOR GFR 0.64 MG/DL (0.55-1.30); GLOMERULAR FILTRATION RATE > 60.0 (>45); GLUCOSE, FASTING 285 MG/DL (74-106); MAGNESIUM LEVEL 1.7 MG/DL (1.8-2.4); POTASSIUM SERUM 4.6 MMOL/L (3.5-5.1); SODIUM LEVEL 139 MMOL/L (136-145); TOTAL PROTEIN 6.8 G/DL (5.7-8.2)
[2022-09-05 15:54] LABS: INR 1.16; VITAMIN B12 LEVEL 659 PG/ML (211-911)
== END ==
LOC: M PLALAB 12:07
PROVIDERS: ATTEND Internal Medicine Gastroenterology
DX: K74.00 Hepatic fibrosis, unspecified (principal); R13.10 Dysphagia, unspecified; R14.1 Gas pain; K75.81 Nonalcoholic steatohepatitis (NASH); D69.6 Thrombocytopenia, unspecified

== ENCOUNTER → 2022-10-15 | Outpatient (CLI) | payer MEDICARE | LOC: M WHC 07:02 | PROVIDERS: ATTEND Internal Medicine Gastroenterology | DX: R13.10 Dysphagia, unspecified (principal); K74.00 Hepatic fibrosis, unspecified; R14.1 Gas pain; K75.81 Nonalcoholic steatohepatitis (NASH); R18.8 Other ascites; D69.6 Thrombocytopenia, unspecified; Z90.49 Acquired absence of other specified parts of digestive tract; N28.1 Cyst of kidney, acquired ==

== ENCOUNTER → 2023-02-01 | Outpatient (REF) | payer MEDICARE, OTHER | LOC: M SFHCWAGY 17:14 | PROVIDERS: ATTEND Specialist | DX: Z12.4 Encounter for screening for malignant neoplasm of cervix (principal); B37.31 Acute candidiasis of vulva and vagina | CPT/HCPCS: 87624; G0123 ==

== ENCOUNTER → 2023-02-01 | Outpatient (CLI) | payer MEDICARE | LOC: M WHC 14:00 | PROVIDERS: ATTEND Specialist | DX: Z12.31 Encounter for screening mammogram for malignant neoplasm of breast (principal) ==

== ENCOUNTER → 2023-04-23 | Outpatient (REF) | payer MEDICARE, OTHER ==
[2023-04-23 19:42] LABS: CREATININE, URINE 42.9 MG/DL
[2023-04-23 19:44] LABS: MAU/CREAT RATIO 53.6 MCG/MG (0.0-30.0)
== END ==
LOC: M LAB REF 17:36
PROVIDERS: ATTEND Internal Medicine Endocrinology, Diabetes & Metabolism
DX: E11.65 Type 2 diabetes mellitus with hyperglycemia (principal)

== ENCOUNTER → 2023-06-11 | Outpatient (CLI) | payer MEDICARE | LOC: M WHC 07:14 | PROVIDERS: ATTEND Specialist | DX: N95.0 Postmenopausal bleeding (principal) ==

== ENCOUNTER → 2023-10-11 | Outpatient (CLI) | payer MEDICARE | LOC: M SOG 08:02 | PROVIDERS: ATTEND Orthopaedic Surgery | DX: M47.892 Other spondylosis, cervical region (principal); M54.2 Cervicalgia ==

== ENCOUNTER → 2023-10-22 | Outpatient (CLI) | payer MEDICARE, OTHER | LOC: M RAD 10:53 | PROVIDERS: ATTEND Family Medicine | DX: M79.672 Pain in left foot (principal) ==

== ENCOUNTER 2023-10-30 11:56 | Emergency (ER) | payer MEDICARE ==
[~2023-10-30] VITALS: Ht 152.4 cm; Wt 90.8 kg
[2023-10-30 12:51] LABS: BASO % 0.7 % (0.0-1.0); EOS # 0.1 10^3/uL (0.0-0.5); EOS % 1.4 % (0.0-3.0); HEMATOCRIT 38.6 % (36.0-47.0); LYMPH # 0.9 10^3/uL (1.5-5.0); MEAN CORPUSCULAR HEMOGLOBIN 27.6 pg (27.0-33.0); MEAN CORPUSCULAR HGB CONC 33.7 g/dl (32.0-36.5); MONO # 0.3 10^3/uL (0.0-0.8); MONO % 5.5 % (2.0-8.0); NEUTROPHILS # 4.4 10^3/uL (1.5-8.5); NEUTROPHILS % 76.1 % (36.0-66.0); RED BLOOD COUNT 4.71 10^6/uL (4.00-5.40); WHITE BLOOD COUNT 5.8 10^3/uL (4.0-10.0)
[2023-10-30 13:12] LABS: BLOOD UREA NITROGEN 14 MG/DL (9-23); CALCIUM LEVEL 9.3 MG/DL (8.3-10.6); CARBON DIOXIDE LEVEL 29 MMOL/L (20-31); CHLORIDE LEVEL 105 MMOL/L (98-107); CREATININE FOR GFR 0.58 MG/DL (0.55-1.30); GLOMERULAR FILTRATION RATE > 60.0 (>45); GLUCOSE, FASTING 171 MG/DL (74-106); POTASSIUM SERUM 4.9 MMOL/L (3.5-5.1); SODIUM LEVEL 140 MMOL/L (136-145)
[2023-10-30 13:48] LABS: PLATELET COUNT, AUTOMATED 59 10^3/uL (150-450)
[2023-10-30 14:03] LABS: ERYTHROCYTE SEDIMENTATION RATE 47 mm/hr (0-30)
[2023-10-30 17:00] LABS: ALBUMIN 3.3 G/DL (3.2-5.2); ALKALINE PHOSPHATASE 95 U/L (46-116); ALT/SGPT 32 U/L (7.0-40); AST/SGOT 31 U/L (<34); BILIRUBIN,DIRECT 0.4 MG/DL (<0.4); BILIRUBIN,TOTAL 1.1 MG/DL (0.3-1.2); TOTAL PROTEIN 6.9 G/DL (5.7-8.2)
[2023-10-30 17:04] LABS: CPK CREATINE PHOSPHOKINASE 69 U/L (34-145)
[2023-10-30] MEDS: ONDANSETRON 4MG 2ML VIAL IV PRN (17:07)
[2023-10-30] MEDS: MORPHINE 4 MG/ML 1ML VIAL IV ONE ×2 (17:10→23:00)
[2023-10-30] MEDS ORDERED: PROHANCE 279.3MG/ML 5ML VIAL As Ordered ONE (18:10)
[2023-10-30] MEDS ORDERED: PROHANCE 279.3MG/ML 15ML VIAL As Ordered ONE (18:10)
[2023-10-30] MEDS ORDERED: VANCOMYCIN HCL 1,750 MG in IV FLUID PLACE HOLDER 1 EA IV ONE (21:25)
[2023-10-30] MEDS: PIPERACILLIN/TAZOBACTAM SOD 3.375 GM in D5W MINI-BAG PLUS 50 ML IV ONE (21:45)
[2023-10-30] MEDS: VANCOMYCIN HCL 1,000 MG, VIAL MATE ADAPTER 1 EACH in D5W 250 ML IV ONE (22:58)
[2023-10-30] MEDS: NS 1,000 ML IV SCH (23:20)
[2023-10-31] MEDS: VANCOMYCIN HCL 750 MG, VIAL MATE ADAPTER 1 EACH in D5W 250 ML IV ONE (00:22)
[2023-10-31 01:49] VITALS: BP 124/62; TEMP 97.6; O2SAT 99
== END 2023-10-31 01:56 | disposition short-term general hospital (02) ==
LOC: M ED 15:35
DX: M46.43 Discitis, unspecified, cervicothoracic region (principal); M86.9 Osteomyelitis, unspecified; E11.9 Type 2 diabetes mellitus without complications; I25.2 Old myocardial infarction; I10 Essential (primary) hypertension; K21.9 Gastro-esophageal reflux disease without esophagitis; K58.9 Irritable bowel syndrome, unspecified; K76.9 Liver disease, unspecified; Z79.4 Long term (current) use of insulin; Z79.01 Long term (current) use of anticoagulants; Z79.899 Other long term (current) drug therapy; Z88.1 Allergy status to other antibiotic agents; Z91.040 Latex allergy status
CPT/HCPCS: 70551; 72156; 80048; 80076; 82550; 83605; 85025; 85049; 85055; 85652; 86140; 87040; 87486; 87581; 87633; 87798; 93005; 96365; 96366; 96367; 96375; 96376; 99284; A9576; J2405; J2543; J3370

== ENCOUNTER → 2023-11-29 | Outpatient (CLI) | payer MEDICARE ==
[~2023-11-29] MED LIST changes: +PROHANCE 279.3MG/ML 15ML VIAL ONE; +PROHANCE 279.3MG/ML 5ML VIAL ONE
== END ==
LOC: M PLAIMG 08:33
PROVIDERS: ATTEND Neurological Surgery
DX: M46.23 Osteomyelitis of vertebra, cervicothoracic region (principal); M47.812 Spondylosis without myelopathy or radiculopathy, cervical region; M48.02 Spinal stenosis, cervical region
CPT/HCPCS: 72125; 72128; 72156; 72157; A9576

== ENCOUNTER → 2024-01-14 | Outpatient (CLI) | payer MEDICARE ==
[~2024-01-14] MED LIST changes: -PROHANCE 279.3MG/ML 15ML VIAL ONE; -PROHANCE 279.3MG/ML 5ML VIAL ONE
== END ==
LOC: M SOG 07:54
PROVIDERS: ATTEND Orthopaedic Surgery
DX: M54.2 Cervicalgia (principal); M47.22 Other spondylosis with radiculopathy, cervical region; M85.88 Other specified disorders of bone density and structure, other site

== ENCOUNTER → 2024-02-14 | Outpatient (CLI) | payer MEDICARE, MEDICAID ==
[~2024-02-14] MED LIST changes: +PROHANCE 279.3MG/ML 15ML VIAL ONE; +PROHANCE 279.3MG/ML 5ML VIAL ONE
== END ==
LOC: M PLAIMG 07:16
PROVIDERS: ATTEND Neurological Surgery
DX: M46.23 Osteomyelitis of vertebra, cervicothoracic region (principal); M48.02 Spinal stenosis, cervical region; M50.321 Other cervical disc degeneration at C4-C5 level
CPT/HCPCS: 72156; 72157; A9576

== ENCOUNTER → 2025-03-09 | Outpatient (CLI) | payer MEDICARE, MEDICAID ==
[~2025-03-09] MED LIST changes: -CYCL5TAB PO; +CYCL5TAB4 PO; +GLIP-318 PO; +GLIP-320 PO; -GLIP10TA18 PO; -GLIP5TAB20 PO; +PROHANCE 279.3MG/ML 15ML VIAL As Ordered ONE; -PROHANCE 279.3MG/ML 15ML VIAL ONE; -PROHANCE 279.3MG/ML 5ML VIAL ONE
== END ==
LOC: M RAD 15:10
PROVIDERS: ATTEND Neurological Surgery
DX: M46.23 Osteomyelitis of vertebra, cervicothoracic region (principal); M50.20 Other cervical disc displacement, unspecified cervical region; M48.02 Spinal stenosis, cervical region; M25.78 Osteophyte, vertebrae
CPT/HCPCS: 72156; A9576

== ENCOUNTER → 2025-05-31 | Outpatient (REF) | payer MEDICARE, MEDICAID ==
[~2025-05-31] MED LIST changes: -IBUP-1022 PO; +IBUP600T42 PO; -PROHANCE 279.3MG/ML 15ML VIAL As Ordered ONE
[2025-06-02 15:47] LABS: HPV APTIMA Not Detected (Not Detected)
== END ==
LOC: M SFHCWAGY 15:19
PROVIDERS: ATTEND Specialist
DX: Z01.419 Encounter for gynecological examination (general) (routine) without abnormal findings (principal)
CPT/HCPCS: 87624; G0123